=== PATIENT | female | born 1985 | race Caucasian/White ===

== ENCOUNTER 2023-11-19 20:32 | Inpatient (IN) | payer OTHER, SELFPAY ==
--- NOTE | ~2023-11-19 | CT_ITS ---
EXAMINATION: CT HEAD WITHOUT CONTRAST CLINICAL INFORMATION: Severe headache COMPARISON: None. TECHNIQUE: Multidetector volumetric imaging of the head was performed without intravenous contrast material. This CT examination was performed using dose optimization techniques as appropriate, variously including the following: *Automated exposure control *Adjustment of mA and/or kV according to patient size (this includes techniques or standardized protocols for targeted exams where dose is matched to indication/reason for exam; i.e. extremities or head) *Use of iterative reconstruction technique Dose: 612 mGy-cm FINDINGS: There is no evidence of acute intracranial hemorrhage or territorial infarction. No abnormal mass-effect or midline shift is seen. Baker to white matter differentiation is well preserved. No extra axial fluid collections. The ventricles are normal in size and configuration. A few foci of hypoattenuation in the subcortical and periventricular white matter are most consistent with chronic microangiopathic changes. May small metal piercing is present in the soft tissues over the left lateral orbital rim. Soft tissues otherwise unremarkable. No calvarial fracture. The sinuses and mastoid air cells are clear. CT/CT head/brain wo IV con IMPRESSION: No acute intracranial pathology.
--- NOTE | ~2023-11-19 | XR_ITS ---
EXAMINATION: PORTABLE CHEST 1 VIEW CLINICAL INFORMATION: fever. COMPARISON: No recent pertinent prior studies are available for comparison. TECHNIQUE: Portable frontal view of the chest was obtained. FINDINGS: The lungs are mildly hypoexpanded with minimal increased basilar markings on the right more likely due to atelectasis. No focal infiltrate, effusion, edema, or pneumothorax. Cardiac and mediastinal silhouettes are within normal limits for technique. No acute bony abnormality seen. Spinal hardware partially visualized. XR/XR chest 1V IMPRESSION: Minimal increased right basilar markings more likely due to atelectasis.
--- NOTE | ~2023-11-19 | US_ITS ---
EXAMINATION: US ABDOMEN LIMITED CLINICAL INFORMATION: Fevers, abnormal LFTs. COMPARISON: None available. TECHNIQUE: Real-time imaging of the right upper quadrant abdominal viscera. FINDINGS: PANCREAS: Pancreatic tail is obscured by bowel gas. Pancreas is otherwise unremarkable. LIVER: Enlarged, measuring 21.4 cm craniocaudal. Increased hepatic echogenicity is noted diffusely with decreased sonographic through transmission, most consistent with steatosis. No focal hepatic lesions. Focal fatty sparing is seen to the gallbladder. GALLBLADDER: Sludge is present in the gallbladder. Gallbladder wall is normal in thickness. No pericholecystic fluid. No sonographic Castillo's sign. No cholelithiasis identified. COMMON BILE DUCT: Normal in caliber measuring 0.3 cm in diameter. RIGHT KIDNEY: Normal. No hydronephrosis. No renal calculi or focal parenchymal lesions. The kidney measures 12.7 cm in maximum dimension. FREE FLUID: None. US/US abdomen limited IMPRESSION: 1. Hepatomegaly and hepatic steatosis. 2. Sludge in the gallbladder. No evidence of acute cholecystitis.
--- NOTE | ~2023-11-19 | XR_ITS ---
EXAMINATION: PORTABLE CHEST 1 VIEW CLINICAL INFORMATION: PICC line placement. COMPARISON: 11/19/2023. TECHNIQUE: Portable frontal view of the chest was obtained. FINDINGS: The lungs are hypoexpanded. Mild peribronchial cuffing seen bilaterally. Right arm PICC line in place with the tip overlying the expected cavoatrial junction.. No focal infiltrate, effusion, edema, or pneumothorax. Cardiac and mediastinal silhouettes are within normal limits for technique. No acute bony abnormality seen. XR/XR chest 1V IMPRESSION: Right arm PICC line tip overlying the expected cavoatrial junction. Hypoexpanded lungs with mild peribronchial cuffing seen bilaterally.
--- NOTE | ~2023-11-19 | CT_ITS ---
EXAMINATION: CT LUMBAR SPINE CLINICAL INFORMATION: Fever, IVDA COMPARISON: None available. TECHNIQUE: 85 mL Omnipaque 350 intravenous contrast was utilized. Multidetector helical imaging was performed through the abdomen and pelvis. Coronal and sagittal reformatted images were created. This CT examination was performed using dose optimization techniques as appropriate, variously including the following: *Automated exposure control *Adjustment of mA and/or kV according to patient size (this includes techniques or standardized protocols for targeted exams where dose is matched to indication/reason for exam; i.e. extremities or head) *Use of iterative reconstruction technique DLP: 789 mGy-cm FINDINGS: Partial visualization of thoracolumbar spinal fusion hardware including right T12 and bilateral L1 pedicle screws and interconnecting rods. There are chronic appearing fractures of the left L3 and L4 transverse processes. There is anatomic alignment of the lumbar vertebral bodies and posterior elements. Vertebral body heights and intervertebral disc spaces are maintained. Mild bilateral facet arthropathy. No acute fracture is seen. No osseous erosions identified. Included bilateral sacroiliac joints appear intact. No appreciable paraspinal soft tissue abnormality or abscess. CT/CT lumbar spine w IV con IMPRESSION: No acute findings identified in the lumbar spine. Given patient's symptoms, assessment for osteomyelitis or abscess would be better performed with pre and postcontrast MRI.
--- NOTE | ~2023-11-19 | MR_ITS ---
EXAMINATION: MR LUMBAR SPINE WITHOUT AND WITH CONTRAST CLINICAL INFORMATION: Fever and IVDA. COMPARISON: CT dated 11/20/2023. TECHNIQUE: Multiplanar, multisequence imaging was obtained. Intravenous contrast: Gadavist 10 mL. FINDINGS: VERTEBRAL BODIES AND PARASPINAL STRUCTURES: Posterior spinal fusion hardware is partially visualized at the lower thoracic to L1 levels. The marrow signal is homogeneous. No suspicious abnormal enhancement identified. No marrow or soft tissue edema visible. There are no compression fractures or subluxations. Reduced intradiscal signal evident at the L5-S1 level without a loss of disc height. No paraspinal soft tissue fluid collections are seen. The imaged bony pelvis is unremarkable. CONUS MEDULLARIS AND CAUDA EQUINE: The distal cord, conus tip, and cauda equina nerve roots are normal. No pathologic intradural enhancement is identified. No epidural collection visible. SPINAL LEVELS: L1-L2, L2-L3, L3-L4, and L4-L5: Well-hydrated discs without central canal stenosis or foraminal narrowing. Mild to moderate facet arthropathy visible at the L4-L5 level. L5-S1: Mild disc degeneration and very mild disc bulge with mild to moderate facet arthropathy. No central canal stenosis or foraminal narrowing. MR/MR lumbar spine wo/w con IMPRESSION: Mild spondylosis at the L5-S1 level. Hypertrophic facet arthropathy at the L4-L5 level. No central canal stenosis or foraminal narrowing. Partially visualized posterior fusion hardware at the lower thoracic levels extending to the L1 level. No imaging findings suspicious for discitis/osteomyelitis.
[2023-11-19 20:43] VITALS: BP 129/87; PULSE 122
[2023-11-19 20:46] VITALS: BP 125/68; PULSE 122; RESP 20; TEMP 39.1; O2SAT 99; BMI 37.7
--- NOTE | 2023-11-19 21:02 | ECG_ITS ---
Test Reason : TACHY Blood Pressure : / mmHG Vent. Rate : 117 BPM Atrial Rate : 117 BPM P-R Int : 122 ms QRS Dur : 082 ms QT Int : 380 ms P-R-T Axes : 040 032 000 degrees QTc Int : 530 ms Sinus tachycardia Possible Left atrial enlargement Prolonged QT Abnormal ECG No previous ECGs available Referred By: Kathryn Coto Electronically Signed By:Laureano Finch
--- NOTE | 2023-11-19 21:30 | ED_ITS ---
HPI - Nausea/Vomiting/Diarrhea General Chief complaint: Nausea/Vomiting/Diarrhea Stated complaint: vomiting and flu like symptoms, 1/2 methadone dose Time Seen by Provider: 11/19/23 20:42 Source: patient and old records reviewed Mode of arrival: ambulatory Limitations: no limitations History of Present Illness HPI Narrative: 38 yo female with PMH of opiate use disorder on high dose methadone last dose half today states they only gave her a little so she would go to the ED her whole family has recently been ill with flu or COVID in pst 3 weeks. She notes for the past week she has had headaches, n/v, poor PO intake, weakness, runny nose, cough, body aches. She did relapse and take IV fentanyl this week for back pain but states her symptoms were present prior to this. MD elicited complaint: nausea and vomiting Onset (ago): week(s) (1) Description of vomiting: watery Associated nausea: Yes Associated abdominal pain: No Pain consistency: constant Severity: moderate Quality: aching Exacerbating factors: eating and movement Relieving factors: none Context: sick contacts Associated symptoms: myalgias, cough, fever/chills, headaches, loss of appetite, malaise, nausea/vomiting, weakness and anxiety Related Data Allergies Allergy/AdvReac Type Severity Reaction Status Date / Time No Known Allergies Allergy Verified 11/19/23 20:55 Review of Systems 2 Review of Systems: Constitutional : pos Fever, pos Chills, pos Fatigue ENT/Mouth : No sore throat, pos Rhinorrhea Eyes: No Eye Pain, No Swelling, No Redness Cardiovascular : No Chest Pain, No SOB, No Dyspnea on Exertion Respiratory : pos Cough, No Sputum Gastrointestinal : pos Nausea, pos Vomiting, pos Diarrhea, No abdominal Pain Genitourinary : No Dysuria, No Urinary Frequency, No Hematuria, Musculoskeletal : No joint pain, pos Myalgias, No Joint Swelling Skin : No Skin Lesions, No rash Neuro : No Weakness, No Numbness, No Dizziness, positive Headache Psych : No Anxiety/Panic, No Depression All other systems reviewed and are negative Gastrointestinal: Gastrointestinal: Reports nausea PMFSH Past Medical History Attestation statement: The following information was validated with the patient. Source: old records reviewed Medical History (Updated 11/20/23 @ 00:18 by Kathryn Coto DO) Chronic back pain Opiate abuse, continuous Social History Social History Alcohol intake: never Smoked in Last 30 Days: No Use of substances other than those prescribed or required for medical reasons: Yes Advance Directives: No Advance Directives Information Provided: No Patient : No Physical Exam 2 Vital Signs: Vital Signs: Last Vital Signs Temp 98.8 F 11/19/23 23:55 Pulse 90 11/19/23 23:55 Resp 20 11/20/23 01:24 BP 104/54 L 11/19/23 23:55 Pulse Ox 98 11/19/23 23:55 O2 Del Method Room Air 11/19/23 23:55 BMI result Body Mass Index 37.7 Appearance: Alert. Oriented X3. mild acute distress. Eyes: Pupils equal, round and reactive to light. ENT: Pharynx dry MM normal posterior pharynx able to open jaw has no teeth no mass seen no infection no erythema Neck: Normal inspection. Neck supple. no meningeal signs CVS: Normal heart rate and rhythm. Pulses normal. Respiratory: No respiratory distress. Breath sounds normal. Abdomen: Soft and nontender. Back: c/o lumbar spine ttp no step offs Skin: Skin warm and dry. Normal skin color. Normal skin turgor. track young on both arms noted Extremities: No lower extremity edema. No calf ttp Neuro: Oriented X 3. No motor deficit. No sensory deficit. Course Course Course Narrative: delay in labs due to patient being difficult stick PATIENT IS OBESE IBW IS 64KG 30CC/KG BOLUS = 2000 NS mL Reevaluation(s) Reevaluation #1: ESR is elevated at this time I am going to order lumbar spine for the AM she tells me her pain is low to mid back points from sacral area to just below the rib cage - vancomycin ordered, MRI ordered signed out to Dr. Hammond pending further management. Medications Administered Generic Name Dose Route Start Last Admin Trade Name Freq PRN Reason Stop Dose Admin Hydromorphone HCl 1 mg 11/20/23 01:16 11/20/23 01:24 Hydromorphone Hcl 0.5 Mg/0.5 Ml Syringe IVPUSH 1 mg Q4H PRN Administration Pain, Moderate(Pain Scale 4-6) Protocol Vancomycin HCl 2,000 mg in 500 mls @ 250 mls/hr 11/20/23 00:44 11/20/23 01:25 Vancomycin/Ns IV 11/20/23 02:43 250 mls/hr ONCE ONE Administration Sodium Chloride 1,000 mls @ 100 mls/hr 11/20/23 01:00 11/20/23 01:11 Ns IVCONT 100 mls/hr .Q10H ANTONINA Administration Discontinued Medications Generic Name Dose Route Start Last Admin Trade Name Mirta PRN Reason Stop Dose Admin Acetaminophen 650 mg 11/19/23 21:02 11/19/23 21:55 Acetaminophen 325 Mg Tablet PO 11/19/23 21:03 650 mg ONCE ONE Administration Hydromorphone HCl 0.5 mg 11/19/23 21:02 11/19/23 22:08 Hydromorphone Hcl 0.5 Mg/0.5 Ml Syringe IVPUSH 11/19/23 21:03 0.5 mg ONCE ONE Administration Protocol Ceftriaxone Sodium 2 gm/ 50 mls @ 100 mls/hr 11/19/23 21:02 11/19/23 22:40 Sodium Chloride IV 11/19/23 21:31 Infused ONCE ONE Infusion Sodium Chloride 1,000 mls @ 999 mls/hr 11/19/23 21:02 11/19/23 23:30 Ns IV 11/19/23 22:02 Infused .Q1H1M ONE Infusion Sodium Chloride 1,000 mls @ 999 mls/hr 11/19/23 21:04 11/19/23 23:16 Ns IV 11/19/23 22:04 Infused .Q1H1M ONE Infusion Magnesium Sulfate 2 gm in 50 mls @ 25 mls/hr 11/19/23 21:47 11/20/23 01:25 Magnesium Sulfate/H2o IV 11/19/23 23:46 Infused ONCE ONE Infusion Potassium Chloride 40 meq 11/19/23 22:34 11/19/23 23:32 Potassium Chloride Packet 20 Meq Packet PO 11/19/23 22:35 40 meq ONCE ONE Administration Medical Decision Making Medical Decision Making MDM Narrative: 38 yo female with PMH Of opiate use disorder on high dose methadone recently used IV fentanyl here with c/o viral like illness that was present prior to her relapse so hopefully endocarditis less likely at this time will need basic labs, CT head given headache for mass/sinusitis, cultures, IVF, pain medications, viral panel, CXR, UA, empiric ceftriaxone. Likely admit given her substance abuse history unless we find reason for her to be ill at this time. She reports sick prior to injection which would make endocarditis, epidural abscess less likely if she is being truthful but her track young are very suspicious and I might need to do MRI if I find nothing else. Differential Diagnosis Differential Diagnoses: The differential diagnosis associated with the presentation includes viral syndrome, UTI, pneumonia Admission/Observation Consideration of admission/observation: Escalation of care including admission/observation considered plan to admit - Dr. Rodarte will follow up on CT scan of lumbar spine Dr. Hammond will monitor as well Consult Healthcare Provider Management of the patient was discussed with: Hospitalist (will admit) Lab Data [facility] Lab Attestation statement: I reviewed the patient's lab results. 11/19/23 21:47 11/19/23 21:47 Labs: Lab Results 11/19/23 11/19/23 11/19/23 Range/Units 21:30 21:47 23:47 WBC 5.2 (4.8-10.8) X10*3/uL RBC 3.71 L (4.20-5.50) X10*6/uL Hgb 11.1 L (12.0-16.0) g/dl Hct 33.0 L (37.0-47.0) % MCV 88.9 (80.0-98.0) fL MCH 29.9 (27.0-33.0) pg MCHC 33.6 (31.0-35.0) g/dl RDW 13.1 (11.0-16.0) % Plt Count 93 L (160-400) X10*3/uL MPV 12.5 H (9.4-12.3) fL Immature Gran % (Auto) 0.4 (0.0-0.4) % Neut % (Auto) 80.6 H (45-73) % Lymph % (Auto) 13.0 L (20-40) % [place] % (Auto) 5.6 (2-11) % Eos % (Auto) 0.2 (0-4) % Baso % (Auto) 0.2 (0-2) % Lymph # (Auto) 0.7 L (1.2-4.9) X10*3/uL [place] # (Auto) 0.3 (0.1-1.2) X10*3/uL Eos # (Auto) 0.0 (0.0-0.4) X10*3/uL Baso # (Auto) 0.0 (0.0-0.2) X10*3/uL Abs Immat Gran (auto) 0.02 (0.00-0.03) X10*3/uL Absolute Neuts (auto) 4.2 (2.0-8.3) x10*3/uL Absolute Nucleated RBC 0.000 (0.0-0.012) X10*3/uL Nucleated RBC % (auto) 0.0 (0.0-0.2) /100WBC ESR 88 H (0-20) MM/HR Sodium 133 L (135-145) mmol/L Potassium 3.0 L (3.3-5.1) mmol/L Chloride 95 L (96-108) mmol/L Carbon Dioxide 23 (22-29) mmol/L Anion Gap 18 (12-20) BUN 14 (9-16) mg/dL Creatinine 0.83 (0.5-1.4) mg/dL Estim Creat Clear Calc 122.1 Estimated GFR > 60 Random Glucose 69 (60-115) mg/dL Lactic Acid 1.5 (0.5-2.0) mmol/L Calcium 8.9 (8.4-10.2) mg/dL Magnesium 2.0 (1.6-2.6) mg/dL Total Bilirubin 2.3 H (0.0-1.0) mg/dL Direct Bilirubin 1.7 H (0.0-0.5) mg/dL AST 105 H (5-31) U/L ALT 86 H (0-31) U/L Alkaline Phosphatase 105 (39-117) U/L Troponin I High Sens < 2.7 (<3.5-17.0) ng/L Total Protein 7.5 (6.5-8.0) g/dL Albumin 3.4 L (3.5-5.0) g/dL Lipase 27 (8-78) U/L Procalcitonin 3.28 ng/mL Beta HCG, Quant < 2 mIU/mL Urine Color Dark Yellow Urine Appearance Cloudy Urine pH 6.0 (5.0-9.0) Ur Specific [place] 1.020 (1.005-1.025) Urine Protein 30 (1+) H (Neg-Trace) mg/dL Urine Glucose (UA) Negative (Negative) mg/dL Urine Ketones 80 (Negative) mg/dL Urine Blood Trace H (Negative) Urine Nitrite Negative (Negative) Ur Leukocyte Esterase Small (1+) H (Negative) Urine RBC 3-5 H (0-2) /HPF Urine WBC 0-5 (0-5) /HPF Ur Squamous Epith Cells 11-20 (0-2) /HPF Urine Bacteria 2+ (None Seen) Hyaline Casts 0-2 (0-2) /LPF Urine Opiates Screen POSITIVE H (Not Detect) Ur Buprenorphine Scrn Not Detected (Not Detect) ng/mL Ur Oxycodone Screen Not Detected (Not Detect) ng/mL Urine Methadone Screen Positive H (Not Detect) ng/mL Urine Fentanyl Screen POSITIVE H (Not Detect) Ur Barbiturates Screen Not Detected (Not Detect) Ur Phencyclidine Scrn Not Detected (Not Detect) Ur Amphetamines Screen Not Detected (Not Detect) U Benzodiazepines Scrn Not Detected (Not Detect) Urine Cocaine Screen POSITIVE H (Not Detect) U Marijuana (THC) Screen Not Detected (Not Detect) Influenza Type A (PCR) NEGATIVE (Negative) Influenza Type B (PCR) NEGATIVE (Negative) RSV RNA Qual (PCR) NEGATIVE (Negative) SARS-CoV-2 RNA (RT-PCR) NEGATIVE (Negative) Independent Interpretation I performed an independent interpretation of an: EKG, Plain X-Ray (no pneumonia), Ultrasound (no cholecystitis) and CT Scan (no ICH) Interpretation: Rate: 117 Rhythm: sinus tach [place]: normal Normal P waves. Normal KRISSY. Normal QRS complex. ST T wave : nonspecific ant leads, no MASTER qTC: 530 prior studies: no acute ischemia The study has been interpreted contemporaneously by me. . Radiology Impression Discussion of test interpretation with radiology: I have reviewed the radiologist's reading. Independent Historian Clinical information obtained from an independent historian. History obtained from or confirmed by: EMS External Record Review External record reviewed: Inpatient record Critical Care Time Critical Care Time Critical Care Time: Yes Total Critical Care Time: 60 Attestation: repeat pain medications with improvement in pain, IVF x 2L, review of records, K repletion, admission I attest to this time spent taking care of the patient Discharge Plan Discharge Clinical Impression: Acute hypokalemia, Thrombocytopenia, Elevated liver enzymes Fever Qualifiers: Fever type: unspecified Qualified Code(s): R50.9 - Fever, unspecified Patient Disposition: Admitted As Inpatient Print Language: Cameroonian
--- NOTE | 2023-11-19 21:30 | PC.NURSE ---
Pt very difficult stick, multiple attempt made for IV access and blood draw not successful. Provider Dr. Giraldo at bedside with ultrasound, not successful at this time.
--- NOTE | 2023-11-19 21:45 | PC.NURSE ---
IV ABX and fluids delayed d/t no IV access. Provider Kyra West able to get IV access via ultrasound guided, Pt tolerated well. Lab work collected and sent to lab.
[2023-11-19] MEDS: Acetaminophen 325 MG TABLET 650 MG PO (21:55)
[2023-11-19 21:57] LABS: MANUAL DIFF FLAG NO
[2023-11-19] MEDS: cefTRIAXone sodium 2 GM in 0.9 % Sodium Chloride 50 ML IV (21:57)
[2023-11-19] MEDS: 0.9 % Sodium Chloride 1,000 ML 999 ML IV ×2 (21:57)
[2023-11-19 21:59] LABS: Basophils Percent Auto 0.2 % (0-2); Eosinophils Percent Auto 0.2 % (0-4); Hemoglobin 11.1 g/dl (12.0-16.0); Imm Gran Abs Auto 0.02 X10*3/uL (0.00-0.03); Imm Gran Pct Auto 0.4 % (0.0-0.4); Lymphocytes Absolute Auto 0.7 X10*3/uL (1.2-4.9); Mean Corpuscular HGB Conc 33.6 g/dl (31.0-35.0); Mean Corpuscular Hemoglobin 29.9 pg (27.0-33.0); Mean Corpuscular Volume 88.9 fL (80.0-98.0); Mean Platelet Volume 12.5 fL (9.4-12.3); Monocytes Absolute Auto 0.3 X10*3/uL (0.1-1.2); Monocytes Percent Auto 5.6 % (2-11); Neutrophils Absolute Auto 4.2 x10*3/uL (2.0-8.3); Neutrophils Percent Auto 80.6 % (45-73); Red Blood Count 3.71 X10*6/uL (4.20-5.50); Red Cell Distribution Width 13.1 % (11.0-16.0); White Blood Count 5.2 X10*3/uL (4.8-10.8)
[2023-11-19] MEDS: HYDROmorphone HCl 0.5 MG/0.5 ML SYRINGE IVPUSH (22:08)
[2023-11-19 22:10] LABS: Influenza A PCR NEGATIVE (Negative); Influenza B PCR NEGATIVE (Negative); Resp Syncy Virus RNA Qual PCR NEGATIVE (Negative); SARS COV2 PCR INHOUSE NEGATIVE (Negative)
[2023-11-19 22:12] LABS: Platelet Count 93 X10*3/uL (160-400)
[2023-11-19 22:14] LABS: Lactic Acid 1.5 mmol/L (0.5-2.0)
[2023-11-19 22:15] VITALS: BP 119/74; PULSE 115; RESP 22; TEMP 39; O2SAT 98
[2023-11-19 22:24] LABS: Troponin-I High Sensitivity < 2.7 ng/L (<3.5-17.0)
[2023-11-19 22:26] LABS: Alanine Aminotransferase 86 U/L (0-31); Albumin Level 3.4 g/dL (3.5-5.0); Alkaline Phosphatase 105 U/L (39-117); Anion Gap 18 (12-20); Aspartate Amino Transferase 105 U/L (5-31); Bilirubin Direct 1.7 mg/dL (0.0-0.5); Bilirubin Total 2.3 mg/dL (0.0-1.0); Blood Urea Nitrogen 14 mg/dL (9-16); Calcium 8.9 mg/dL (8.4-10.2); Carbon Dioxide 23 mmol/L (22-29); Chloride 95 mmol/L (96-108); Creatinine Clr Calc Pharmacy 122.1; Estimated Glomerular Filt Rate > 60; Glucose Random 69 mg/dL (60-115); Lipase 27 U/L (8-78); Sodium 133 mmol/L (135-145); Total Protein 7.5 g/dL (6.5-8.0)
[2023-11-19 22:41] LABS: HCG Quantitative < 2 mIU/mL; Procalcitonin 3.28 ng/mL
[2023-11-19] MEDS: Magnesium Sulfate/H2O 2 GM/50 ML PIGGYBACK IV (23:18)
[2023-11-19] MEDS: Potassium Chloride Packet 20 MEQ PACKET 40 MEQ PO (23:32)
[2023-11-19 23:35] VITALS: BP 109/60; PULSE 93; RESP 20; TEMP 38.3; O2SAT 97
[2023-11-19 23:55] VITALS: BP 104/54; PULSE 90; RESP 19; TEMP 37.1; O2SAT 98
[2023-11-19 23:55] LABS: Appearance Urine Cloudy; Color Urine Dark Yellow; Glucose Urine UA Negative (Negative); Leukocyte Esterase Urine Small (1+) (Negative); Nitrite Urine Negative (Negative); UMIC TRIGGER UACC YES; Urine Blood Trace (Negative); Urine Ketones 80 mg/dL (Negative); Urine Protein 30 (1+) mg/dL (Neg-Trace)
[2023-11-20] VITALS (8 sets, daily range): BP systolic 101–115; BP diastolic 57–71; PULSE 83–115; RESP 16–20; TEMP 36.6–39.2; O2SAT 95–98
--- NOTE | 2023-11-20 | ECG_ITS ---
Test Reason : QTC CHECK Blood Pressure : / mmHG Vent. Rate : 070 BPM Atrial Rate : 070 BPM P-R Int : 148 ms QRS Dur : 086 ms QT Int : 448 ms P-R-T Axes : 039 035 018 degrees QTc Int : 483 ms Normal sinus rhythm Prolonged QT Abnormal ECG When compared with ECG of 19-NOV-2023 21:30, Vent. rate has decreased BY 47 BPM Referred By: Betty Padgett Electronically Signed By:Laureano Finch
[2023-11-20 00:11] LABS: Amphetamine Screen Urine Not Detected (Not Detect); Barbiturates, Urine Not Detected (Not Detect); Benzodiazepines Screen Urine Not Detected (Not Detect); Buprenorphine Scr Not Detected (Not Detect); Cannabinoid Screen Urine Not Detected (Not Detect); Cocaine Screen Urine POSITIVE (Not Detect); Fentanyl, urine POSITIVE (Not Detect); Methadone Screen, Urine Positive (Not Detect); Opiate Screen Urine POSITIVE (Not Detect); Oxycodone Screen Urine Not Detected (Not Detect); Phencyclidine Screen Urine Not Detected (Not Detect)
[2023-11-20 00:12] LABS: Bacteria Urine 2+ (None Seen); Hyaline Casts Urine 0-2 /LPF (0-2); UACC Culture Trigger YES; WBC Urine 0-5 /HPF (0-5)
[2023-11-20 00:38] LABS: Erythrocyte Sedimentation Rate 88 MM/HR (0-20)
[2023-11-20] MEDS: 0.9 % Sodium Chloride 1,000 ML 100 ML IVCONT ×2 (01:11→11:23)
[2023-11-20] MEDS: HYDROmorphone HCl 0.5 MG/0.5 ML SYRINGE 1 MG IVPUSH ×4 (01:24→21:35)
[2023-11-20] MEDS: vancomycin/NS 2,000 MG/500 ML PLAST..BAG 250 MG IV (01:25)
--- NOTE | 2023-11-20 01:33 | P.HPHOSP_ITS ---
History of Present Illness Date of Service: 11/20/23 Chief Complaint: Fever This is a 38-year-old female with pertinent history of IV drug use disorder who presents to the emergency department for evaluation of fever, chills. Patient states her symptoms started 5 days prior to presentation. Patient has been having multiple complaints including fever, chills, headache, nausea, nonbloody emesis, poor p.o. intake, weakness. States she feels sick. Also has been having runny nose and cough. Admits to using IV drugs but denies infections in the past. Is not on any prescription medications. States her family is sick with viral infections. Patient is also complaining of lower back pain that started 5 days ago, is constant and is without any relieving factors. No neck rigidity. No chest pain, palpitations, shortness of breath, changes in urinary or bowel habits. In the emergency department, CT head, CT lumbar spine, abdominal ultrasound and chest x-ray without any acute abnormalities. Patient was found to be febrile and tachycardic Review of Systems 2 Constitutional: Constitutional: Reports body ache(s), Reports chills, Reports fatigue, Reports fever(s), Reports headache(s), Reports malaise, Reports poor appetite and Reports weakness ENT: Reports headache(s) Cardiovascular: Cardiovascular: Reports no additional cardiovascular complaints Respiratory: Respiratory: Reports no additional respiratory complaints Gastrointestinal: Gastrointestinal: Reports no additional gastrointestinal complaints Genitourinary: Genitourinary: Reports no additional female genitourinary complaints Neurologic: Reports headache(s) and Reports weakness Endocrine: Endocrine: Reports fatigue [facility] Medical History Chronic back pain Opiate abuse, continuous Pertinent family history: No family history of early CAD Social History Alcohol intake: never Patient Tobacco Use Status: Former Tobacco user Smoked in Last 30 Days: No Use of substances other than those prescribed or required for medical reasons: Yes Advance Directives: No Advance Directives Information Provided: No Nutrition Risks: No Nutritional Risk Patient : No Meds Allergies Allergy/AdvReac Type Severity Reaction Status Date / Time No Known Allergies Allergy Verified 11/19/23 20:55 Active Medications: Current Medications Acetaminophen (Acetaminophen 325 Mg Tablet) 650 mg PO Q6H PRN PRN Reason: Fever >100.4 Hydromorphone HCl (Hydromorphone Hcl 0.5 Mg/0.5 Ml Syringe) 1 mg IVPUSH Q4H PRN; Protocol PRN Reason: Pain, Moderate(Pain Scale 4-6) Last Admin: 11/20/23 01:24 Dose: 1 mg Vancomycin HCl (Vancomycin/Ns) 2,000 mg in 500 mls @ 250 mls/hr IV ONCE ONE Stop: 11/20/23 02:43 Last Admin: 11/20/23 01:25 Dose: 250 mls/hr Sodium Chloride (Ns) 1,000 mls @ 100 mls/hr IVCONT .Q10H [facility] Last Admin: 11/20/23 01:11 Dose: 100 mls/hr Pharmacy Consult (Consult Rx Vancomycin Dosing) 1 each MISCELLANE DAILY PRN PRN Reason: Consult order Physical Exam 2 Vital Signs and Narrative: Vital Signs: Last Vital Signs Temp 98.8 F 11/20/23 01:30 Pulse 94 11/20/23 01:30 Resp 19 11/20/23 01:30 BP 104/62 11/20/23 01:30 Pulse Ox 97 11/20/23 01:30 O2 Del Method Room Air 11/20/23 01:30 BMI result Body Mass Index 37.7 Middle-aged female lying in bed in no distress Neck supple, no JVD Regular rate and rhythm, S1-S2 heard Regular breath sounds bilaterally, no wheezing or crackles appreciated Abdomen soft nontender, no guarding, no rigidity Patient is awake, alert and oriented to self, place, time and person ; no focal motor deficit Psych: Normal mood Bilateral track young present in upper extremity Results Labs 11/19/23 21:47 11/19/23 21:47 Labs: Laboratory Results - last 24 hr 11/19/23 11/19/23 11/19/23 21:30 21:47 23:47 MCV 88.9 MCH 29.9 MCHC 33.6 RDW 13.1 Plt Count 93 L MPV 12.5 H Immature Gran % (Auto) 0.4 Neut % (Auto) 80.6 H Lymph % (Auto) 13.0 L [place] % (Auto) 5.6 Eos % (Auto) 0.2 Baso % (Auto) 0.2 Lymph # (Auto) 0.7 L [place] # (Auto) 0.3 Eos # (Auto) 0.0 Baso # (Auto) 0.0 Abs Immat Gran (auto) 0.02 Absolute Neuts (auto) 4.2 Absolute Nucleated RBC 0.000 Nucleated RBC % (auto) 0.0 ESR 88 H Anion Gap 18 Estim Creat Clear Calc 122.1 Estimated GFR > 60 Random Glucose 69 Lactic Acid 1.5 Calcium 8.9 Magnesium 2.0 Total Bilirubin 2.3 H Direct Bilirubin 1.7 H AST 105 H ALT 86 H Alkaline Phosphatase 105 Troponin I High Sens < 2.7 Total Protein 7.5 Albumin 3.4 L Lipase 27 Procalcitonin 3.28 Beta HCG, Quant < 2 Urine Color Dark Yellow Urine Appearance Cloudy Urine pH 6.0 Ur Specific [place] 1.020 Urine Protein 30 (1+) H Urine Glucose (UA) Negative Urine Ketones 80 Urine Blood Trace H Urine Nitrite Negative Ur Leukocyte Esterase Small (1+) H Urine RBC 3-5 H Urine WBC 0-5 Ur Squamous Epith Cells 11-20 Urine Bacteria 2+ Hyaline Casts 0-2 Urine Opiates Screen POSITIVE H Ur Buprenorphine Scrn Not Detected Ur Oxycodone Screen Not Detected Urine Methadone Screen Positive H Urine Fentanyl Screen POSITIVE H Ur Barbiturates Screen Not Detected Ur Phencyclidine Scrn Not Detected Ur Amphetamines Screen Not Detected U Benzodiazepines Scrn Not Detected Urine Cocaine Screen POSITIVE H U Marijuana (THC) Screen Not Detected Influenza Type A (PCR) NEGATIVE Influenza Type B (PCR) NEGATIVE RSV RNA Qual (PCR) NEGATIVE SARS-CoV-2 RNA (RT-PCR) NEGATIVE Imaging Radiologist's Impressions: Impressions Chest X-Ray 11/19/23 22:05 IMPRESSION: Minimal increased right basilar markings more likely due to atelectasis. Abdomen Ultrasound 11/19/23 23:00 IMPRESSION: 1. Hepatomegaly and hepatic steatosis. 2. Sludge in the gallbladder. No evidence of acute cholecystitis. Head CT 11/19/23 23:10 IMPRESSION: No acute intracranial pathology. Assessment and Plan (1) Fever: Qualifiers: Fever type: unspecified Qualified Code(s): R50.9 - Fever, unspecified Status: Acute Plan This is a 38-year-old female with pertinent history of IV drug use disorder who presents to the emergency department for evaluation of fever, chills. #. Sirs: Will admit with empiric IV antibiotics. Concern for bacteremia in a patient with IV drug use disorder. Resuscitated with IV crystalloids. Lactic acid and blood culture obtained. MRI lumbar spine ordered by ER physician pending #. Polysubstance IV use disorder: Consulted Addiction Team, monitor for withdrawal. #. Thrombocytopenia likely in the setting of infection: Defer prophylactic Lovenox #. Elevated transaminases due to SIRS #. Hypokalemia: Repleted DVT prophylaxis: Mechanical Full code Admit as inpatient and will require two night minimum hospital stay for IV antibiotics (as above), which is not possible in a lesser acute setting. Quality Stroke Does the patient have a stroke diagnosis?: No VTE Prior VTE?: No VTE Risk Level:: Medical - moderate - high VTE Device Contraindication: N/A - Device Ordered VTE Drug Contraindication: Treatment Not Indicated
[2023-11-20] MEDS: iohexoL 350 MG/ML 100 ML INFUS..BTL 85 ML IV (01:51)
--- NOTE | 2023-11-20 02:42 | PC.NURSE ---
Addendum entered by Melva Camp 11/20/23 02:48: Pt reports recently relapsing on IVDU. Original Note: Late entry: Pt VITALIY from home, A&Ox3, reports 10/10 headache, subjective fevers, nausea/vomiting, decrease PO intake, and weakness x 4 days. Reports exposure to covid/flu 3 weeks ago. Pt states at baseline she able to pivot to w/c which she has not been able to do in about 1 week.
[2023-11-20] MEDS: Acetaminophen 325 MG TABLET 650 MG PO ×2 (04:30→21:35)
[2023-11-20] MEDS: ondansetron HCL 4 MG/2 ML VIAL IVPUSH (04:30)
--- NOTE | 2023-11-20 05:14 | PC.NURSE ---
Pt febrile, reports nausea and increase all over body pain. Pt medicated per SEP. Dr. Rodarte made aware, new order pending.
[2023-11-20] MEDS: Morphine Sulfate 2 MG/ML CARTRIDGE 4 MG IVPUSH (05:18)
[2023-11-20 05:28] LABS: MANUAL DIFF FLAG NO
[2023-11-20 05:31] LABS: Basophils Percent Auto 0.4 % (0-2); Eosinophils Percent Auto 0.2 % (0-4); Hematocrit 31.2 % (37.0-47.0); Hemoglobin 10.5 g/dl (12.0-16.0); Imm Gran Abs Auto 0.04 X10*3/uL (0.00-0.03); Imm Gran Pct Auto 0.8 % (0.0-0.4); Lymphocytes Absolute Auto 0.6 X10*3/uL (1.2-4.9); Lymphocytes Percent Auto 11.5 % (20-40); Mean Corpuscular HGB Conc 33.7 g/dl (31.0-35.0); Mean Corpuscular Hemoglobin 30.2 pg (27.0-33.0); Mean Corpuscular Volume 89.7 fL (80.0-98.0); Mean Platelet Volume 13.4 fL (9.4-12.3); Monocytes Absolute Auto 0.4 X10*3/uL (0.1-1.2); Monocytes Percent Auto 7.3 % (2-11); Neutrophils Absolute Auto 4.2 x10*3/uL (2.0-8.3); Neutrophils Percent Auto 79.8 % (45-73); Red Blood Count 3.48 X10*6/uL (4.20-5.50); Red Cell Distribution Width 13.3 % (11.0-16.0); White Blood Count 5.2 X10*3/uL (4.8-10.8)
[2023-11-20 05:32] LABS: Platelet Count 79 X10*3/uL (160-400)
[2023-11-20] MEDS: 0.9 % Sodium Chloride 250 ML 999 ML IV (05:32)
[2023-11-20 06:00] LABS: Anion Gap 15 (12-20); Blood Urea Nitrogen 9 mg/dL (9-16); Calcium 7.6 mg/dL (8.4-10.2); Carbon Dioxide 20 mmol/L (22-29); Chloride 103 mmol/L (96-108); Creatinine Clr Calc Pharmacy 140.7; Estimated Glomerular Filt Rate > 60; Glucose Random 81 mg/dL (60-115); Potassium 3.5 mmol/L (3.3-5.1); Sodium 134 mmol/L (135-145)
--- NOTE | 2023-11-20 07:47 | PHA.PROG ---
Admission Date/Time: November 20, 2023 01:43 Indication: SEPSIS Weight in k.5 kg Adjusted body weight in K KG [place] body weight in K.9 KG Obesity Dosing Indication % IBW: Serum Creatinine - Last 168 Hours 11/19/23 11/20/23 21:47 05:05 Creatinine 0.83 0.72 Estimated CrCl and GFR - Last 168 Hours 11/19/23 11/20/23 21:47 05:05 Estim Creat Clear Calc 122.1 140.7 Estimated GFR > 60 > 60 Vancomycin Loading Dose: 2000 MG Current Vancomycin Dosing Regimen: 1250 MG Q12H Vancomycin Monitoring using AUC goal of 400 - 600 range with trough as surrogate marker: PREDICTED AUC OF 460 Date and Time for next Vancomycin Level to be drawn: 11/21/23 @1100 Pharmacist Comments on Vancomycin Plan: PATIENT OBESE Vancomycin dosing will take advantage of [employer] as a clinical decision support tool that uses Bayesian modeling to calculate individual patient's pharmacokinetic parameters and forecast the patient's drug concentration time course with the target goal AUC 24 range of 400 - 600 mg/L/hr.
--- NOTE | 2023-11-20 08:42 | PHA.MEDREC ---
Pharmacy Consult ? Medication Reconciliation Pharmacy has completed the medication reconciliation. spoke with patient to confirm medications. She reports taking gabapentin but takes less than what is prescribed (she takes 1 capsule BID-TID instead of 2 capsules TID). She reports last taking it at the beginning of the week and that this is her last prescription for it. Patient reported a methadone dose of 226mg last given 1/2 dose yesterday at [facility] where she picks up from.
--- NOTE | 2023-11-20 09:16 | PC.NURSE ---
alert and oriented with even and unlabored respirations. medicated per the MAR w/ prn pain medications. [facility] previously was utilizing purewick however patient stated she was having trouble urinating with this. removed, and able to use the bed lewis voiding with no issues. phlebotomy at bedside for labs.
--- NOTE | 2023-11-20 10:12 | PC.NURSE ---
methadone dose verified, hector arreguin RN naveed stating patient's last methadone dose 11/19/23 at half her usual dose 113mg - patient usually receives 226mg of methadone however yesterday d/t patient's presentation to the clinic of not feeling well and weakness the provider gave half of her usual dose per RN. form completed and faxed to pharmacy.
--- NOTE | 2023-11-20 10:41 | HO.PM.IMPN ---
Subjective Subjective Date of Service: 11/20/23 Interval History: Seen in follow up for fevers, back pain Interval history: Still reporting chills, sweats. Febrile to 102.4 this morning. Reports LBP x1 year worse last few days. NO bowel/bladder dysfunction, weakness, saddle anesthesia. Reports 9/10 pain. Injects LUE, last use several days ago. Review of Systems Review of Systems: Yes all other systems are reviewed and are negative Physical Exam Vital Signs: Vital Signs: Last Vital Signs Temp 98 F 11/20/23 07:12 Pulse 83 11/20/23 07:12 Resp 16 11/20/23 07:12 BP 108/65 11/20/23 07:12 Pulse Ox 98 11/20/23 07:12 O2 Del Method Room Air 11/20/23 07:12 BMI result Body Mass Index 37.7 Constitutional - Awake and Alert, No apparent distress Eyes - PERRLA, EOMI Cardiovascular - S1S2, RRR, No edema Respiratory - Normal lung expansion, Normal respiratory effort, No respiratory distress, CTA bilaterally Extremities - no calf tenderness bilaterally, no swelling Skin - Warm/Dry. Track young with surrounding ecchymosis at various levels of healing Neurological - Alert & oriented x3, 5/5 strength BUE and BLE Psychological - Appropriate affect Objective Data Active Medications Acetaminophen (Acetaminophen 325 Mg Tablet) 650 mg PO Q6H PRN PRN Reason: Fever >100.4 Last Admin: 11/20/23 04:30 Dose: 650 mg Documented By: PAULO Acetaminophen (Acetaminophen 325 Mg Tablet) 650 mg PO Q6H PRN PRN Reason: Pain, Mild (Pain Scale 1-3) Gabapentin (Gabapentin 300 Mg Capsule) 300 mg PO BID [facility] Gabapentin (Gabapentin 300 Mg Capsule) 300 mg PO DAILY PRN PRN Reason: Pain, Mild (Pain Scale 1-3) Hydromorphone HCl (Hydromorphone Hcl 0.5 Mg/0.5 Ml Syringe) 1 mg IVPUSH Q4H PRN; Protocol PRN Reason: Pain, Moderate(Pain Scale 4-6) Last Admin: 11/20/23 08:45 Dose: 1 mg Documented By: RYLEE Sodium Chloride (Ns) 1,000 mls @ 100 mls/hr IVCONT .Q10H [facility] Last Admin: 11/20/23 01:11 Dose: 100 mls/hr Documented By: PALUO Vancomycin HCl 1,250 mg/ (Sodium Chloride) 250 mls @ 166.667 mls/hr IV Q12H [facility] Melatonin (Melatonin 3 Mg Tablet) 6 mg PO BEDTIME PRN PRN Reason: Insomnia Ondansetron HCl (Ondansetron Hcl 4 Mg/2 Ml Vial) 4 mg IVPUSH Q8H PRN PRN Reason: Nausea and Vomiting Last Admin: 11/20/23 04:30 Dose: 4 mg Documented By: PAULO Pharmacy Consult (Consult Rx Vancomycin Dosing) 1 each MISCELLANE DAILY PRN PRN Reason: Consult order Sodium Chloride (0.9 % Sodium Chloride Flush 3 Ml Syringe) 3 ml IVFLUSH QSHIFT [facility] Last Admin: 11/20/23 08:10 Dose: Not Given Documented By: RYLEE Non-Admin Reason: IV Running Labs 11/20/23 05:05 11/20/23 05:05 Labs: Laboratory Results - last 24 hr 11/19/23 11/19/23 11/19/23 21:30 21:47 23:47 MCV 88.9 MCH 29.9 MCHC 33.6 RDW 13.1 Plt Count 93 L MPV 12.5 H Immature Gran % (Auto) 0.4 Neut % (Auto) 80.6 H Lymph % (Auto) 13.0 L [place] % (Auto) 5.6 Eos % (Auto) 0.2 Baso % (Auto) 0.2 Lymph # (Auto) 0.7 L [place] # (Auto) 0.3 Eos # (Auto) 0.0 Baso # (Auto) 0.0 Abs Immat Gran (auto) 0.02 Absolute Neuts (auto) 4.2 Absolute Nucleated RBC 0.000 Nucleated RBC % (auto) 0.0 ESR 88 H Anion Gap 18 Estim Creat Clear Calc 122.1 Estimated GFR > 60 Random Glucose 69 Lactic Acid 1.5 Calcium 8.9 Magnesium 2.0 Total Bilirubin 2.3 H Direct Bilirubin 1.7 H AST 105 H ALT 86 H Alkaline Phosphatase 105 Troponin I High Sens < 2.7 Total Protein 7.5 Albumin 3.4 L Lipase 27 Procalcitonin 3.28 Beta HCG, Quant < 2 Urine Color Dark Yellow Urine Appearance Cloudy Urine pH 6.0 Ur Specific [place] 1.020 Urine Protein 30 (1+) H Urine Glucose (UA) Negative Urine Ketones 80 Urine Blood Trace H Urine Nitrite Negative Ur Leukocyte Esterase Small (1+) H Urine RBC 3-5 H Urine WBC 0-5 Ur Squamous Epith Cells 11-20 Urine Bacteria 2+ Hyaline Casts 0-2 Urine Opiates Screen POSITIVE H Ur Buprenorphine Scrn Not Detected Ur Oxycodone Screen Not Detected Urine Methadone Screen Positive H Urine Fentanyl Screen POSITIVE H Ur Barbiturates Screen Not Detected Ur Phencyclidine Scrn Not Detected Ur Amphetamines Screen Not Detected U Benzodiazepines Scrn Not Detected Urine Cocaine Screen POSITIVE H U Marijuana (THC) Screen Not Detected Influenza Type A (PCR) NEGATIVE Influenza Type B (PCR) NEGATIVE RSV RNA Qual (PCR) NEGATIVE SARS-CoV-2 RNA (RT-PCR) NEGATIVE 11/20/23 05:05 MCV 89.7 MCH 30.2 MCHC 33.7 RDW 13.3 Plt Count 79 L MPV 13.4 H Immature Gran % (Auto) 0.8 H Neut % (Auto) 79.8 H Lymph % (Auto) 11.5 L [place] % (Auto) 7.3 Eos % (Auto) 0.2 Baso % (Auto) 0.4 Lymph # (Auto) 0.6 L [place] # (Auto) 0.4 Eos # (Auto) 0.0 Baso # (Auto) 0.0 Abs Immat Gran (auto) 0.04 H Absolute Neuts (auto) 4.2 Absolute Nucleated RBC 0.000 Nucleated RBC % (auto) 0.0 ESR Anion Gap 15 Estim Creat Clear Calc 140.7 Estimated GFR > 60 Random Glucose 81 Lactic Acid Calcium 7.6 L D Magnesium Total Bilirubin Direct Bilirubin AST ALT Alkaline Phosphatase Troponin I High Sens Total Protein Albumin Lipase Procalcitonin Beta HCG, Quant Urine Color Urine Appearance Urine pH Ur Specific [place] Urine Protein Urine Glucose (UA) Urine Ketones Urine Blood Urine Nitrite Ur Leukocyte Esterase Urine RBC Urine WBC Ur Squamous Epith Cells Urine Bacteria Hyaline Casts Urine Opiates Screen Ur Buprenorphine Scrn Ur Oxycodone Screen Urine Methadone Screen Urine Fentanyl Screen Ur Barbiturates Screen Ur Phencyclidine Scrn Ur Amphetamines Screen U Benzodiazepines Scrn Urine Cocaine Screen U Marijuana (THC) Screen Influenza Type A (PCR) Influenza Type B (PCR) RSV RNA Qual (PCR) SARS-CoV-2 RNA (RT-PCR) Microbiology Microbiology Results: Microbiology 11/19/23 21:47 Blood Culture - Preliminary Blood - Venous Prelim: GPC Gram Stain only 11/19/23 21:47 Blood Culture - Preliminary Blood - Venous Prelim: GPC Gram Stain only Assessment and Plan (1) Severe sepsis: Status: Acute (2) Gram-positive bacteremia: Status: Acute (3) Low back pain: Status: Acute (4) Intravenous drug abuse: Status: Acute (5) Thrombocytopenia: Status: Acute (6) Acute hypokalemia: Status: Acute Plan 38-year-old female with pertinent history of IV drug use disorder, chronic low back pain, s/p thoracic fusion admitted for sirs with fever unkn[place] origin with suspected bacteremia and low back pain #Severe sepsis with gram positive bacteremia -Pt met severe sepsis criteria 11/18 at 2147 with fevers, tachycardia, thombocytopenia, and hyperbilirubinemia. Lactic acid at that time WNL. Blood cultures x2 now positive with GPC. Resuscited with IVF. on abx -Repeat blood cultures -ESR 88, CRPpending. PCT >3 -concern for epidural abscess/discitis given worsening LBP in IVDA. MRI lumbar spine w/wo pending. IV vanco (intiated 11/18) -ua also indicative of infection. 2g IV ctx (initiated 11/18) -cxr, ruq u/s negative for cholecystitis -No evidence of cellulitis/abscess around track young LUE -Echo -ID consult -Follow cbc/cultures. Trend pct #Asymptomatic bacteriuria -as above #Acute on chronic low back pain -concern for spinal epidural abscess/discitis given IVDA. MRI lumbar spine w/wo ordered -ct lumbar spine unremarkable -methadone, prn hydrocodone and oxycodone as above -lidocaine patches #Polysubstance IV use disorder -urine drug screen positive for cocaine, opiates, fentanyl, methadone -Resume methadone @ 113mg due to prolonged qtc. PRN hydrocodone and oxycodone available -addiction medicine consult #Acute thrombocytopenia -due to infection as above #Acute hypokalemia -repleted, resolved #normocytic anemia- suspect chronic -h/h above transfusion threshold #Acute hypocalcemia -likely dilutional from iv -dc ivf, follow lytes DVT prophylaxis: Mechanical Full code Pt requires ongoing inpt stay due to severe sepsis with gram positive bacteremia requiring iv abx, echo to evaluate for endocarditis and expert consulation Quality Stroke Does the patient have a stroke diagnosis?: No VTE Prior VTE?: No VTE Risk Level:: Medical - moderate - high VTE Device Contraindication: N/A - Device Ordered VTE Drug Contraindication: Treatment Not Indicated
[2023-11-20] MEDS: Gabapentin 300 MG CAPSULE PO ×2 (11:24→21:34)
[2023-11-20] MEDS: gadobutroL 10 ML VIAL IVPUSH (12:42)
--- NOTE | 2023-11-20 12:52 | HE.PHANOTE ---
RE METHADONE VERIFICATION PT NORMALLY GETS 226 MG METHADONE AT [facility]. ON 11/19/23 SHE WAS GIVEN HALF DOSE (113 MG) DUE TO FEELING UNWELL.
[2023-11-20 13:34] LABS: C Reactive Protein 17.07 mg/dL (< or = 0.50)
[2023-11-20] MEDS: methADONE HCl 20 MG/2 ML ORAL.CONC 113 MG PO (14:07)
[2023-11-20] MEDS: Lidocaine 4 % Patch ADH..PATCH 2 PATCH TRANSDERMA (14:10)
[2023-11-20] MEDS: vancomycin HCL 1,250 MG in 0.9 % Sodium Chloride 250 ML 166.67 MG IV (14:11)
--- NOTE | 2023-11-20 15:50 | W.PM.IDCN ---
History of Present Illness Data of Consult Service Date: 11/20/23 Requesting physician: Betty Padgett Primary Care Provider: Unknown Physician HPI Reason for consult: sepsis,gram positive cocci She presents with one weak nausea and vomiting as well as flulike symptoms. She has been taking less Methadone due to anorexia and vomiting. She injects into left antecubital Fentanyl due to back pain. She denies endocarditis or OM spine. There is spinal hardware but no OM seen. She denies HIV or Hepatitis C. Blood cultures 11/18 show 2/2 positive cocci. Review of Systems Review of Systems: Yes all other systems are reviewed and are negative [facility] Past Medical History Medical History Chronic back pain Opiate abuse, continuous Family History Family history: reviewed and not pertinent Social History Social History Alcohol intake: never Patient Tobacco Use Status: Former Tobacco user Smoked in Last 30 Days: No Use of substances other than those prescribed or required for medical reasons: Yes Advance Directives: No Advance Directives Information Provided: No Nutrition Risks: No Nutritional Risk Patient : No Meds Allergies Allergy/AdvReac Type Severity Reaction Status Date / Time No Known Allergies Allergy Verified 11/19/23 20:55 Active Medications: Current Medications Acetaminophen (Acetaminophen 325 Mg Tablet) 650 mg PO Q6H PRN PRN Reason: Fever >100.4 Last Admin: 11/20/23 04:30 Dose: 650 mg Acetaminophen (Acetaminophen 325 Mg Tablet) 650 mg PO Q6H PRN PRN Reason: Pain, Mild (Pain Scale 1-3) Gabapentin (Gabapentin 300 Mg Capsule) 300 mg PO BID [facility] Last Admin: 11/20/23 11:24 Dose: 300 mg Gabapentin (Gabapentin 300 Mg Capsule) 300 mg PO DAILY PRN PRN Reason: Pain, Mild (Pain Scale 1-3) Hydromorphone HCl (Hydromorphone Hcl 0.5 Mg/0.5 Ml Syringe) 1 mg IVPUSH Q4H PRN; Protocol PRN Reason: Pain, Severe (Pain Scale 7-10) Last Admin: 11/20/23 14:07 Dose: 1 mg Vancomycin HCl 1,250 mg/ (Sodium Chloride) 250 mls @ 166.667 mls/hr IV Q12H [facility] Last Admin: 11/20/23 14:11 Dose: 166.67 mls/hr Ceftriaxone Sodium 2 gm/ (Sodium Chloride) 50 mls @ 100 mls/hr IV Q24H [facility] Lidocaine (Lidocaine 4 % Patch Adh..Patch) 2 patch TRANSDERMA DAILY [facility]; Protocol Last Admin: 11/20/23 14:10 Dose: 2 patch Melatonin (Melatonin 3 Mg Tablet) 6 mg PO BEDTIME PRN PRN Reason: Insomnia Methadone HCl (Methadone Hcl 20 Mg/2 Ml Oral.Conc) 113 mg PO DAILY [facility] Last Admin: 11/20/23 14:07 Dose: 113 mg Ondansetron HCl (Ondansetron Hcl 4 Mg/2 Ml Vial) 4 mg IVPUSH Q8H PRN PRN Reason: Nausea and Vomiting Last Admin: 11/20/23 04:30 Dose: 4 mg Oxycodone HCl (Oxycodone Hcl Immed Release 5 Mg Tablet) 5 mg PO Q4H PRN PRN Reason: Pain, Moderate(Pain Scale 4-6) Pharmacy Consult (Consult Rx Vancomycin Dosing) 1 each MISCELLANE DAILY PRN PRN Reason: Consult order Sodium Chloride (0.9 % Sodium Chloride Flush 3 Ml Syringe) 3 ml IVFLUSH QSHIFT [facility] Last Admin: 11/20/23 08:10 Dose: Not Given Home Medications ?Medication ?Instructions ?Recorded ?Confirmed ?Last Taken ?Type gabapentin 300 mg capsule 300 mg PO BID-TID 11/20/23 11/20/23 Unknown History methadone 10 mg/5 mL oral solution 226 mg PO DAILY 11/20/23 11/20/23 11/19/23 History Physical Exam Vital Signs: Vital Signs: Last Vital Signs Temp 98.8 F 11/20/23 15:20 Pulse 86 11/20/23 15:20 Resp 18 11/20/23 15:20 BP 110/68 11/20/23 15:20 Pulse Ox 97 11/20/23 15:20 O2 Del Method Room Air 11/20/23 15:20 BMI result Body Mass Index 37.7 Const: General: cooperative HEENT: Head: Yes normal to inspection Face and sinus: Yes normal facial exam Mouth: Normal oral and palatal mucosa present Teeth and gingiva: dentition normal Eyes: General: appearance normal, both eyes and all related structures Pupils: Equal, round and reactive pupils present Resp: Effort & Inspection: normal respiratory effort Cardio: Rate: regular rate Rhythm: regular rhythm GI: Palpation (GI): Soft to palpation and nontender : General: Yes no CVA tenderness Back/Spine/Pelvis: Back: no CVA tenderness Skin: General skin exam: no rashes or lesions noted Neuro: General: moves all extremities Cranial nerves: Yes Equal, round and reactive pupils present Extrem: Other: mild erythema and swelling left antecubital Psych: Appearance: grossly normal Results Labs 11/20/23 05:05 11/20/23 05:05 Labs: Short CBC 11/19/23 11/20/23 Range/Units 21:47 05:05 WBC 5.2 5.2 (4.8-10.8) X10*3/uL Hgb 11.1 L 10.5 L (12.0-16.0) g/dl Hct 33.0 L 31.2 L (37.0-47.0) % Plt Count 93 L 79 L (160-400) X10*3/uL BMP 11/19/23 11/20/23 21:47 05:05 Sodium 133 L 134 L Potassium 3.0 L 3.5 Chloride 95 L 103 Carbon Dioxide 23 20 L BUN 14 9 Creatinine 0.83 0.72 Calcium 8.9 7.6 L D Liver Function 11/19/23 Range/Units 21:47 Total Bilirubin 2.3 H (0.0-1.0) mg/dL Direct Bilirubin 1.7 H (0.0-0.5) mg/dL AST 105 H (5-31) U/L ALT 86 H (0-31) U/L Alkaline Phosphatase 105 (39-117) U/L Albumin 3.4 L (3.5-5.0) g/dL Urine 11/19/23 Range/Units 23:47 Urine Color Dark Yellow Urine Appearance Cloudy Urine pH 6.0 (5.0-9.0) Ur Specific [place] 1.020 (1.005-1.025) Urine Protein 30 (1+) H (Neg-Trace) mg/dL Urine Glucose (UA) Negative (Negative) mg/dL Microbiology Microbiology Results: Microbiology 11/19/23 21:47 Blood - Venous Blood Culture - Preliminary Prelim: GPC Gram Stain only 11/19/23 21:47 Blood - Venous Blood Culture - Preliminary Prelim: GPC Gram Stain only Assessment and Plan (1) Intravenous drug abuse: Status: Acute (2) Gram-positive bacteremia: Status: Acute (3) Severe sepsis: Status: Acute Plan She has gram positive cocci,probably staph She has no signs OM spine. There is no murmur but concern remains over endocarditis. Check echo if not ordered, Would recheck blood culture. Stop Ceftriaxone as gram positive cocci in clusters so believe staph aureus. Check HIV and Hepatitis C. Addiction Medicine consult,also help with depression (relapse).
[2023-11-20] MEDS: 0.9 % Sodium Chloride Flush 3 ML SYRINGE IVFLUSH (16:50)
[2023-11-20] MEDS: HYDROmorphone HCl 0.5 MG/0.5 ML SYRINGE IVPUSH (16:51)
[2023-11-20] MEDS: oxyCODONE HCl Immed Release 5 MG TABLET PO (17:43)
--- NOTE | 2023-11-20 20:02 | PC.NURSE ---
This RN assumed pt care @ 1900. Pt resting in bed comfortably, no signs of distress. Plan of care ongoing.
--- NOTE | 2023-11-20 21:28 | MHC.EDTECH ---
Pt assisted on and off bed lewis, cleaned up, vital signs taken. Blankets taken off Pt and sheet given due to 102.6F temp. RN aware. Call hall within reach
--- NOTE | 2023-11-20 21:40 | PC.NURSE ---
Pt ca&ox4, no signs of distress. Pt reporting 8/10 pain. Pt medicated per mar. Plan of care ongoing.
--- NOTE | 2023-11-21 | ECG_ITS ---
Test Reason : qtc check Blood Pressure : / mmHG Vent. Rate : 088 BPM Atrial Rate : 088 BPM P-R Int : 134 ms QRS Dur : 082 ms QT Int : 406 ms P-R-T Axes : 033 022 010 degrees QTc Int : 491 ms Normal sinus rhythm Prolonged QT Abnormal ECG When compared with ECG of 20-NOV-2023 10:54, No significant change was found Referred By: Betty Padgett Electronically Signed By:JANNETH HERRERA MD
[2023-11-21 01:07] VITALS: BP 122/76; PULSE 88; RESP 18; TEMP 36.1; O2SAT 98
[2023-11-21] MEDS: vancomycin HCL 1,250 MG in 0.9 % Sodium Chloride 250 ML 166.67 MG IV (01:10)
[2023-11-21] MEDS: 0.9 % Sodium Chloride Flush 3 ML SYRINGE IVFLUSH ×2 (01:10→07:49)
[2023-11-21 01:20] VITALS: BMI 37.7
[2023-11-21 06:46] LABS: Red Cell Distribution Width 13.6 % (11.0-16.0)
[2023-11-21 06:48] LABS: Basophils Percent Auto 0.6 % (0-2); Eosinophils Absolute Auto 0.1 X10*3/uL (0.0-0.4); Eosinophils Percent Auto 1.5 % (0-4); Imm Gran Abs Auto 0.03 X10*3/uL (0.00-0.03); Imm Gran Pct Auto 0.6 % (0.0-0.4); Lymphocytes Percent Auto 17.8 % (20-40); Mean Corpuscular HGB Conc 33.3 g/dl (31.0-35.0); Mean Corpuscular Hemoglobin 29.9 pg (27.0-33.0); Mean Corpuscular Volume 89.8 fL (80.0-98.0); Mean Platelet Volume 13.3 fL (9.4-12.3); Monocytes Absolute Auto 0.4 X10*3/uL (0.1-1.2); Monocytes Percent Auto 7.6 % (2-11); Neutrophils Absolute Auto 3.9 x10*3/uL (2.0-8.3); Neutrophils Percent Auto 71.9 % (45-73); Platelet Count 94 X10*3/uL (160-400); Red Blood Count 4.01 X10*6/uL (4.20-5.50); White Blood Count 5.4 X10*3/uL (4.8-10.8)
[2023-11-21 07:01] VITALS: BP 111/55; PULSE 87; RESP 16; TEMP 36.1; O2SAT 93
[2023-11-21 07:03] LABS: Estimated Glomerular Filt Rate > 60
[2023-11-21 07:06] LABS: Anion Gap 14 (12-20); Blood Urea Nitrogen 6 mg/dL (9-16); Calcium 8.5 mg/dL (8.4-10.2); Carbon Dioxide 26 mmol/L (22-29); Chloride 100 mmol/L (96-108); Creatinine Clr Calc Pharmacy 144.8; Estimated Glomerular Filt Rate > 60; Glucose Random 88 mg/dL (60-115); Potassium 3.1 mmol/L (3.3-5.1); Sodium 137 mmol/L (135-145)
[2023-11-21] MEDS: Potassium Chloride Packet 20 MEQ PACKET 40 MEQ PO (07:50)
[2023-11-21] MEDS: Gabapentin 300 MG CAPSULE PO ×2 (07:52→22:04)
[2023-11-21] MEDS: methADONE HCl 20 MG/2 ML ORAL.CONC 113 MG PO (07:53)
[2023-11-21] MEDS: Lidocaine 4 % Patch ADH..PATCH 2 PATCH TRANSDERMA (07:54)
[2023-11-21 08:00] LABS: Magnesium 2.2 mg/dL (1.6-2.6)
--- NOTE | 2023-11-21 10:21 | MHC.CM.PN ---
EMR REVIEWED, PT W/VIDU/BACTEREMIA, CM MET W/PT WHO REPORTS SHE LIVES ALONE, IS FULLY INDEP, DENIES USE OF DME/SERVICES, PT DOES USE [facility] FOR [facility], PT AWARE SHE MAY NEED CORRECTION IV ABX [facility] AND PREFERS [facility], REFERRAL PLACED. PT VERIFIES PCP IS ZIA CURIEL, [employer] AND PT EDUCATED ON AND DECLINES TO COMPLETE A HCP AT THIS TIME, PT AWARE IF SHE CHANGES HER MIND TO ASK FOR CM.
[2023-11-21] MEDS: methADONE HCl 20 MG/2 ML ORAL.CONC 62 MG PO (11:27)
[2023-11-21 12:00] LABS: Vancomycin Trough 7.3 mcg/mL (10.0-20.0)
--- NOTE | 2023-11-21 12:08 | HE.PHANOTE ---
RE: vanco Trough of 11/20 came back at 7.3mg/L; increased dose to 1500mg Q8H with predicted trough of 15.5mg/L, AUC of 558mg/L. Next level to be drawn after 3 doses on 11/21 @1100. Be mindful of dose dumping due to patient's size
--- NOTE | 2023-11-21 12:11 | HO.PM.IMPN ---
Subjective Subjective Date of Service: 11/21/23 Interval History: Seen in follow up for fevers, back pain Staph aureus bacteremia Interval history: Denies chills, sweats. Febrile to 102.6 last night. Complaining of R heel pain with weight bearing. Also reporting diffuse body aches and dark urine. Review of Systems Review of Systems: Yes all other systems are reviewed and are negative Physical Exam Vital Signs: Vital Signs: Last Vital Signs Temp 97 F 11/21/23 07:01 Pulse 87 11/21/23 07:01 Resp 16 11/21/23 07:01 BP 111/55 L 11/21/23 07:01 Pulse Ox 93 11/21/23 07:01 O2 Del Method Room Air 11/21/23 07:01 BMI result Body Mass Index 37.7 Constitutional - Awake and Alert, No apparent distress Eyes - PERRLA, EOMI Cardiovascular - S1S2, RRR, No edema Respiratory - Normal lung expansion, Normal respiratory effort, No respiratory distress, CTA bilaterally Gastrointestinal - NT / ND; +BS; No rebound or guarding Extremities - no calf tenderness bilaterally, no swelling Musculoskeletal - Normal inspection. Focal tenderness over the insertion of the R achilles tendon into the calcaneus Skin - Warm/Dry Neurological - Alert & oriented x3, 5/5 strength BUE and BLE Psychological - Appropriate affect Objective Data Active Medications Acetaminophen (Acetaminophen 325 Mg Tablet) 650 mg PO Q6H PRN PRN Reason: Fever >100.4 Last Admin: 11/20/23 21:35 Dose: 650 mg Documented By: PASHA Acetaminophen (Acetaminophen 325 Mg Tablet) 650 mg PO Q6H PRN PRN Reason: Pain, Mild (Pain Scale 1-3) Gabapentin (Gabapentin 300 Mg Capsule) 300 mg PO BID ANTONINA Last Admin: 11/21/23 07:52 Dose: 300 mg Documented By: BASHIR Gabapentin (Gabapentin 300 Mg Capsule) 300 mg PO DAILY PRN PRN Reason: Pain, Mild (Pain Scale 1-3) Hydromorphone HCl (Hydromorphone Hcl 0.5 Mg/0.5 Ml Syringe) 1 mg IVPUSH Q4H PRN; Protocol PRN Reason: Pain, Severe (Pain Scale 7-10) Last Admin: 11/20/23 21:35 Dose: 1 mg Documented By: PASHA Vancomycin HCl 1,500 mg/ (Sodium Chloride) 500 mls @ 333.333 mls/hr IV Q8H [facility] Lidocaine (Lidocaine 4 % Patch Adh..Patch) 2 patch TRANSDERMA DAILY [facility]; Protocol Last Admin: 11/21/23 07:54 Dose: 2 patch Documented By: BASHIR Melatonin (Melatonin 3 Mg Tablet) 6 mg PO BEDTIME PRN PRN Reason: Insomnia Methadone HCl (Methadone Hcl 20 Mg/2 Ml Oral.Conc) 50 mg PO DAILY@1400 [facility] Methadone HCl (Methadone Hcl 20 Mg/2 Ml Oral.Conc) 175 mg PO DAILY [facility] Ondansetron HCl (Ondansetron Hcl 4 Mg/2 Ml Vial) 4 mg IVPUSH Q8H PRN PRN Reason: Nausea and Vomiting Last Admin: 11/20/23 04:30 Dose: 4 mg Documented By: SERRANX Oxycodone HCl (Oxycodone Hcl Immed Release 5 Mg Tablet) 5 mg PO Q4H PRN PRN Reason: Pain, Moderate(Pain Scale 4-6) Last Admin: 11/20/23 17:43 Dose: 5 mg Documented By: RYLEE Pharmacy Consult (Consult Rx Vancomycin Dosing) 1 each MISCELLANE DAILY PRN PRN Reason: Consult order Sodium Chloride (0.9 % Sodium Chloride Flush 3 Ml Syringe) 3 ml IVFLUSH [facility] Last Admin: 11/21/23 07:49 Dose: 3 ml Documented By: BASHIR Labs 11/21/23 05:41 11/21/23 05:41 Labs: Laboratory Results - last 24 hr 11/20/23 11/21/23 11/21/23 05:05 05:41 05:41 MCV 89.8 MCH 29.9 MCHC 33.3 RDW 13.6 Plt Count 94 L MPV 13.3 H Immature Gran % (Auto) 0.6 H Neut % (Auto) 71.9 Lymph % (Auto) 17.8 L [place] % (Auto) 7.6 Eos % (Auto) 1.5 Baso % (Auto) 0.6 Lymph # (Auto) 1.0 L [place] # (Auto) 0.4 Eos # (Auto) 0.1 Baso # (Auto) 0.0 Abs Immat Gran (auto) 0.03 Absolute Neuts (auto) 3.9 Absolute Nucleated RBC 0.000 Nucleated RBC % (auto) 0.0 Anion Gap 14 Estim Creat Clear Calc 149.0 144.8 Estimated GFR > 60 Random Glucose Calcium Magnesium C-Reactive Protein 17.07 H Vancomycin Trough 11/21/23 11/21/23 05:41 11:20 MCV MCH MCHC RDW Plt Count MPV Immature Gran % (Auto) Neut % (Auto) Lymph % (Auto) [place] % (Auto) Eos % (Auto) Baso % (Auto) Lymph # (Auto) [place] # (Auto) Eos # (Auto) Baso # (Auto) Abs Immat Gran (auto) Absolute Neuts (auto) Absolute Nucleated RBC Nucleated RBC % (auto) Anion Gap Estim Creat Clear Calc Estimated GFR > 60 Random Glucose 88 Calcium 8.5 D Magnesium 2.2 C-Reactive Protein Vancomycin Trough 7.3 L Microbiology Microbiology Results: Microbiology 11/20/23 Unknown Urine Culture - Final Urine clean catch - Urine fu top 11/20/23 10:14 Blood Culture - Preliminary Blood - Venous Prelim: GPC Gram Stain only 11/20/23 10:11 Blood Culture - Preliminary Blood - Venous Prelim: GPC Gram Stain only 11/19/23 21:47 Blood Culture - Preliminary Blood - Venous Staphylococcus aureus 11/19/23 21:47 Blood Culture - Preliminary Blood - Venous Staphylococcus aureus Assessment and Plan (1) Staphylococcus aureus bacteremia: Status: Acute (2) Severe sepsis: Status: Acute Plan 38-year-old female with pertinent history of IV drug use disorder, chronic low back pain, s/p thoracic fusion admitted for sepsis with staph bacteremia and low back pain #Severe sepsis with Staph aureus bacteremia -Pt met severe sepsis criteria 11/18 at 2147 with fevers, tachycardia, thombocytopenia, and hyperbilirubinemia. Lactic acid at that time WNL. Blood cultures x2 now positive with GPC. Resuscited with IVF. on abx -Initial and repeat prelim BC positive for staph aureus, sensitivities pending. Repeat BC pending -ESR 88, CRP 17.07. PCT >3 -MRI lumbar spine w/wo negative for osteo, abscess, or discitis. Has thoracic nidia in place but no focal tenderness on exam, however can consider MR thoracic spine if indicated. IV vanco (intiated 11/18) -cxr, ruq u/s negative for cholecystitis -No evidence of cellulitis/abscess around track young LUE -Echo pending -ID consult -Follow cbc/cultures. Trend pct #Asymptomatic bacteriuria -Urine culture negative. DC Ctx #Diffuse myalgia -also with dark urine -check cpk, concern for rhabdo in setting of drug abuse -Initiate IV NS @125ml/hr #Acute on chronic low back pain -concern for spinal epidural abscess/discitis given IVDA. MRI lumbar spine w/wo negative for osteo, abscess, discitis -ct lumbar spine unremarkable -methadone, prn hydrocodone and oxycodone as above -lidocaine patches #Acute R achilles tendonitis -ice packs, ibuprofen prn -given exercises to perform #acute hypokalemia -repleted, follow lytes #Polysubstance IV use disorder -urine drug screen positive for cocaine, opiates, fentanyl, methadone -Resume methadone @ 113mg due to prolonged qtc. PRN hydrocodone and oxycodone available -addiction medicine consult #Acute thrombocytopenia -due to infection as above #Acute hypokalemia -repleted, resolved #Elevated LFTs -likely r/t acute infection -HIV and hep c ab pending given hx ivda #normocytic anemia- suspect chronic -h/h above transfusion threshold #Acute hypocalcemia -likely dilutional from iv -dc ivf, follow lytes DVT prophylaxis: Mechanical Full code Pt requires ongoing inpt stay due to severe sepsis with gram positive bacteremia requiring iv abx, echo to evaluate for endocarditis and expert consulation Quality Stroke Does the patient have a stroke diagnosis?: No VTE Prior VTE?: No VTE Risk Level:: Medical - moderate - high VTE Device Contraindication: N/A - Device Ordered VTE Drug Contraindication: Treatment Not Indicated
[2023-11-21] MEDS: vancomycin HCL 1,500 MG in 0.9 % Sodium Chloride 500 ML 333.33 MG IV ×2 (12:58→22:03)
[2023-11-21 13:32] LABS: Alanine Aminotransferase 136 U/L (0-31); Albumin Level 3.2 g/dL (3.5-5.0); Alkaline Phosphatase 108 U/L (39-117); Aspartate Amino Transferase 202 U/L (5-31); Bilirubin Direct 1.3 mg/dL (0.0-0.5); Bilirubin Total 1.7 mg/dL (0.0-1.0); Total Protein 7.2 g/dL (6.5-8.0)
[2023-11-21] MEDS: 0.9 % Sodium Chloride 1,000 ML 125 ML IVCONT ×2 (14:25→22:03)
--- NOTE | 2023-11-21 15:35 | HO.ADDICTCON ---
History of Present Illness Date of Service: 11/21/2023 Chief Complaint: Fever Reason for Consult: prolong QTc -methadone dosing Sources of Information: patient interviewed and chart reviewed HPI Narrative: Patient is a 38 year old female medically admitted with sepsis. OUD on methadone at [facility] --dose confirmed to be 226mg daily, last dose on 11/18 113mg (reduced dose requested by patient due to not feeling well). Dose on 11/19 113mg secondary to prolonged QT. PRN oxycodone and dilaudud available overnight This morning 11/20, QT slightly improved. Dose adjusted to 175mg in AM and 50mg at 2pm --dosing split to address body aches reported by patient. Patient seen in room 359. Awake, alert, sitting up in bed engaged in interview. She reports she has been on dose of 226 for quite some time, and prolonged QT has been an issue in the past, but has not resulted in discontinuation of methadone, but has not allowed for further dose increase. She acknowledged recent opiate use, but identified body aches, headache, difficulty ambulating as reason for using. She reports good supports and feels stable on current dose. Denies any withdrawal sx Review of Systems Constitutional: Reports as per HPI Diagnostics Vital Signs (24Hr): Vital Signs - 24 hr 11/20/23 21:27 11/21/23 01:07 11/21/23 07:01 Temperature 102.6 F H 97 F 97 F Pulse Rate 102 H 88 87 Respiratory Rate 20 18 16 Blood Pressure 115/71 122/76 111/55 L Pulse Oximetry 96 98 93 Oxygen Delivery Method Room Air Room Air Room Air BMI result Body Mass Index 37.7 Labs 11/21/23 05:41 11/21/23 05:41 Labs: Laboratory Results - last 48 hr 11/19/23 11/19/23 11/19/23 21:30 21:47 23:47 WBC 5.2 RBC 3.71 L Hgb 11.1 L Hct 33.0 L MCV 88.9 MCH 29.9 MCHC 33.6 RDW 13.1 Plt Count 93 L MPV 12.5 H Immature Gran % (Auto) 0.4 Neut % (Auto) 80.6 H Lymph % (Auto) 13.0 L [place] % (Auto) 5.6 Eos % (Auto) 0.2 Baso % (Auto) 0.2 Lymph # (Auto) 0.7 L [place] # (Auto) 0.3 Eos # (Auto) 0.0 Baso # (Auto) 0.0 Abs Immat Gran (auto) 0.02 Absolute Neuts (auto) 4.2 Absolute Nucleated RBC 0.000 Nucleated RBC % (auto) 0.0 ESR 88 H Sodium 133 L Potassium 3.0 L Chloride 95 L Carbon Dioxide 23 Anion Gap 18 BUN 14 Creatinine 0.83 Estim Creat Clear Calc 122.1 Estimated GFR > 60 Random Glucose 69 Lactic Acid 1.5 Calcium 8.9 Magnesium 2.0 Total Bilirubin 2.3 H Direct Bilirubin 1.7 H AST 105 H ALT 86 H Alkaline Phosphatase 105 Total Creatine Kinase Troponin I High Sens < 2.7 C-Reactive Protein Total Protein 7.5 Albumin 3.4 L Lipase 27 Procalcitonin 3.28 Beta HCG, Quant < 2 Urine Color Dark Yellow Urine Appearance Cloudy Urine pH 6.0 Ur Specific [place] 1.020 Urine Protein 30 (1+) H Urine Glucose (UA) Negative Urine Ketones 80 Urine Blood Trace H Urine Nitrite Negative Ur Leukocyte Esterase Small (1+) H Urine RBC 3-5 H Urine WBC 0-5 Ur Squamous Epith Cells 11-20 Urine Bacteria 2+ Hyaline Casts 0-2 Vancomycin Trough Urine Opiates Screen POSITIVE H Ur Buprenorphine Scrn Not Detected Ur Oxycodone Screen Not Detected Urine Methadone Screen Positive H Urine Fentanyl Screen POSITIVE H Ur Barbiturates Screen Not Detected Ur Phencyclidine Scrn Not Detected Ur Amphetamines Screen Not Detected U Benzodiazepines Scrn Not Detected Urine Cocaine Screen POSITIVE H U Marijuana (THC) Screen Not Detected Influenza Type A (PCR) NEGATIVE Influenza Type B (PCR) NEGATIVE RSV RNA Qual (PCR) NEGATIVE SARS-CoV-2 RNA (RT-PCR) NEGATIVE 11/20/23 11/21/23 11/21/23 05:05 05:41 05:41 WBC 5.2 5.4 RBC 3.48 L 4.01 L Hgb 10.5 L 12.0 Hct 31.2 L 36.0 L MCV 89.7 89.8 MCH 30.2 29.9 MCHC 33.7 33.3 RDW 13.3 13.6 Plt Count 79 L 94 L MPV 13.4 H 13.3 H Immature Gran % (Auto) 0.8 H 0.6 H Neut % (Auto) 79.8 H 71.9 Lymph % (Auto) 11.5 L 17.8 L [place] % (Auto) 7.3 7.6 Eos % (Auto) 0.2 1.5 Baso % (Auto) 0.4 0.6 Lymph # (Auto) 0.6 L 1.0 L [place] # (Auto) 0.4 0.4 Eos # (Auto) 0.0 0.1 Baso # (Auto) 0.0 0.0 Abs Immat Gran (auto) 0.04 H 0.03 Absolute Neuts (auto) 4.2 3.9 Absolute Nucleated RBC 0.000 0.000 Nucleated RBC % (auto) 0.0 0.0 ESR Sodium 134 L 137 Potassium 3.5 3.1 L Chloride 103 100 Carbon Dioxide 20 L 26 Anion Gap 15 14 BUN 9 6 L Creatinine 0.72 0.68 0.70 Estim Creat Clear Calc 140.7 149.0 Estimated GFR > 60 Random Glucose 81 Lactic Acid Calcium 7.6 L D Magnesium Total Bilirubin Direct Bilirubin AST ALT Alkaline Phosphatase Total Creatine Kinase Troponin I High Sens C-Reactive Protein 17.07 H Total Protein Albumin Lipase Procalcitonin Beta HCG, Quant Urine Color Urine Appearance Urine pH Ur Specific [place] Urine Protein Urine Glucose (UA) Urine Ketones Urine Blood Urine Nitrite Ur Leukocyte Esterase Urine RBC Urine WBC Ur Squamous Epith Cells Urine Bacteria Hyaline Casts Vancomycin Trough Urine Opiates Screen Ur Buprenorphine Scrn Ur Oxycodone Screen Urine Methadone Screen Urine Fentanyl Screen Ur Barbiturates Screen Ur Phencyclidine Scrn Ur Amphetamines Screen U Benzodiazepines Scrn Urine Cocaine Screen U Marijuana (THC) Screen Influenza Type A (PCR) Influenza Type B (PCR) RSV RNA Qual (PCR) SARS-CoV-2 RNA (RT-PCR) 11/21/23 11/21/23 11/21/23 05:41 05:41 11:20 WBC RBC Hgb Hct MCV MCH MCHC RDW Plt Count MPV Immature Gran % (Auto) Neut % (Auto) Lymph % (Auto) [place] % (Auto) Eos % (Auto) Baso % (Auto) Lymph # (Auto) [place] # (Auto) Eos # (Auto) Baso # (Auto) Abs Immat Gran (auto) Absolute Neuts (auto) Absolute Nucleated RBC Nucleated RBC % (auto) ESR Sodium Potassium Chloride Carbon Dioxide Anion Gap BUN Creatinine Estim Creat Clear Calc 144.8 Estimated GFR > 60 > 60 Random Glucose 88 Lactic Acid Calcium 8.5 D Magnesium 2.2 Total Bilirubin 1.7 H Direct Bilirubin 1.3 H AST 202 H ALT 136 H Alkaline Phosphatase 108 Total Creatine Kinase 14 L Troponin I High Sens C-Reactive Protein Total Protein 7.2 Albumin 3.2 L Lipase Procalcitonin Beta HCG, Quant Urine Color Urine Appearance Urine pH Ur Specific [place] Urine Protein Urine Glucose (UA) Urine Ketones Urine Blood Urine Nitrite Ur Leukocyte Esterase Urine RBC Urine WBC Ur Squamous Epith Cells Urine Bacteria Hyaline Casts Vancomycin Trough 7.3 L Urine Opiates Screen Ur Buprenorphine Scrn Ur Oxycodone Screen Urine Methadone Screen Urine Fentanyl Screen Ur Barbiturates Screen Ur Phencyclidine Scrn Ur Amphetamines Screen U Benzodiazepines Scrn Urine Cocaine Screen U Marijuana (THC) Screen Influenza Type A (PCR) Influenza Type B (PCR) RSV RNA Qual (PCR) SARS-CoV-2 RNA (RT-PCR) Imaging Radiology Impressions: ITS Impressions Chest X-Ray 11/19/23 22:05 IMPRESSION: Minimal increased right basilar markings more likely due to atelectasis. Abdomen Ultrasound 11/19/23 23:00 IMPRESSION: 1. Hepatomegaly and hepatic steatosis. 2. Sludge in the gallbladder. No evidence of acute cholecystitis. Head CT 11/19/23 23:10 IMPRESSION: No acute intracranial pathology. Lumbar Spine CT 11/20/23 01:54 IMPRESSION: No acute findings identified in the lumbar spine. Given patient's symptoms, assessment for osteomyelitis or abscess would be better performed with pre and postcontrast MRI. Lumbar Spine MRI 11/20/23 12:52 IMPRESSION: Mild spondylosis at the L5-S1 level. Hypertrophic facet arthropathy at the L4-L5 level. No central canal stenosis or foraminal narrowing. Partially visualized posterior fusion hardware at the lower thoracic levels extending to the L1 level. No imaging findings suspicious for discitis/osteomyelitis. Mental Status Exam Mental Status Exam Patient Appearance: Well Grooomed Level of Consciousness: Awake, Appropriate and Alert Medications Medications Current Medications Acetaminophen (Acetaminophen 325 Mg Tablet) 650 mg PO Q6H PRN PRN Reason: Fever >100.4 Last Admin: 11/20/23 21:35 Dose: 650 mg Acetaminophen (Acetaminophen 325 Mg Tablet) 650 mg PO Q6H PRN PRN Reason: Pain, Mild (Pain Scale 1-3) Gabapentin (Gabapentin 300 Mg Capsule) 300 mg PO BID ANTONINA Last Admin: 11/21/23 07:52 Dose: 300 mg Gabapentin (Gabapentin 300 Mg Capsule) 300 mg PO DAILY PRN PRN Reason: Pain, Mild (Pain Scale 1-3) Hydromorphone HCl (Hydromorphone Hcl 0.5 Mg/0.5 Ml Syringe) 1 mg IVPUSH Q4H PRN; Protocol PRN Reason: Pain, Severe (Pain Scale 7-10) Last Admin: 11/20/23 21:35 Dose: 1 mg Vancomycin HCl 1,500 mg/ (Sodium Chloride) 500 mls @ 333.333 mls/hr IV Q8H [facility] Last Infusion: 11/21/23 14:40 Dose: Infused Sodium Chloride (Ns) 1,000 mls @ 125 mls/hr IVCONT .Q8H [facility] Last Admin: 11/21/23 14:25 Dose: 125 mls/hr Ibuprofen (Ibuprofen 600 Mg Tablet) 600 mg PO Q6H PRN PRN Reason: heel pain Lidocaine (Lidocaine 4 % Patch Adh..Patch) 2 patch TRANSDERMA DAILY [facility]; Protocol Last Admin: 11/21/23 07:54 Dose: 2 patch Melatonin (Melatonin 3 Mg Tablet) 6 mg PO BEDTIME PRN PRN Reason: Insomnia Methadone HCl (Methadone Hcl 20 Mg/2 Ml Oral.Conc) 50 mg PO DAILY@1400 [facility] Methadone HCl (Methadone Hcl 20 Mg/2 Ml Oral.Conc) 175 mg PO DAILY [facility] Ondansetron HCl (Ondansetron Hcl 4 Mg/2 Ml Vial) 4 mg IVPUSH Q8H PRN PRN Reason: Nausea and Vomiting Last Admin: 11/20/23 04:30 Dose: 4 mg Oxycodone HCl (Oxycodone Hcl Immed Release 5 Mg Tablet) 5 mg PO Q4H PRN PRN Reason: Pain, Moderate(Pain Scale 4-6) Last Admin: 11/20/23 17:43 Dose: 5 mg Pharmacy Consult (Consult Rx Vancomycin Dosing) 1 each MISCELLANE DAILY PRN PRN Reason: Consult order Sodium Chloride (0.9 % Sodium Chloride Flush 3 Ml Syringe) 3 ml IVFLUSH QSHIFT [facility] Last Admin: 11/21/23 07:49 Dose: 3 ml Allergies Allergies Allergy/AdvReac Type Severity Reaction Status Date / Time No Known Allergies Allergy Verified 11/19/23 20:55 Assessment & Plan Assessment & Plan (1) Opioid use disorder: Status: Acute Code(s): F11.90 - Opioid use, unspecified, uncomplicated Assessment and Plan: QT shortened some-Mg WNL methadone full dose administered today (split dose 175+50) if EKG okay in AM, resume home dosing--if not keep 175mg and hold 50mg dose Total time managing care of this patient today __35__ minutes. PMFSH Past Medical History Medical History Chronic back pain Opiate abuse, continuous Family History Family history: reviewed and not pertinent Social History Social History Housing: Apartment Alcohol intake: never Patient Tobacco Use Status: Former Tobacco user service: No
[2023-11-21 16:00] VITALS: BP 104/58; PULSE 75; RESP 16; TEMP 36.4; O2SAT 94
[2023-11-21 20:00] VITALS: BP 115/58; PULSE 94; RESP 16; TEMP 36.3; O2SAT 94
[2023-11-22 03:08] VITALS: BP 113/54; PULSE 96; RESP 16; TEMP 37.2; O2SAT 95
[2023-11-22] MEDS: 0.9 % Sodium Chloride 1,000 ML 125 ML IVCONT ×3 (05:31→22:34)
[2023-11-22] MEDS: vancomycin HCL 1,500 MG in 0.9 % Sodium Chloride 500 ML 333.33 MG IV (05:31)
[2023-11-22 05:54] LABS: Anion Gap 12 (12-20); Blood Urea Nitrogen 4 mg/dL (9-16); Calcium 7.8 mg/dL (8.4-10.2); Carbon Dioxide 24 mmol/L (22-29); Chloride 105 mmol/L (96-108); Creatinine Clr Calc Pharmacy 144.8; Estimated Glomerular Filt Rate > 60; Glucose Random 140 mg/dL (60-115); Potassium 3.2 mmol/L (3.3-5.1); Sodium 138 mmol/L (135-145)
--- NOTE | 2023-11-22 07:00 | CA_ITS ---
Transthoracic Echocardiogram Patient (Last, First, Middle): Caridad Berkowitz, Gender: Female Date of : 1985 Age: 38 Procedure Date: 11/22/2023 Procedure Type: Transthoracic Echocardiogram Location: S3E Height: 172.72 cm Weight: 112.49 kg BSA: 2.24 m2 Heart Rate: bpm BP: 117 / 71 mmHg Blow Mold Machine Operator: PAUL Referring MD: Betty KHAN Industrial Ecology Technician: Delgado Williamson MD Symptoms: bacteremia Study Quality: Good ECG Rhythm: Sinus Conclusions: - 1. A mobile mass on the anterior tricuspid leaflet most suggestive of a vegetation 2. Normal LV and RV size and systolic function with LVEF of 60 65% 3. Mild mitral and [id number] tricuspid regurgitation 4. Normal RV systolic pressure 5. No gross pericardial effusion Findings Left Ventricle Normal left ventricular size, thickness, and systolic function. The visually estimated ejection fraction is between 60-65%. Diastolic function is normal for age. Right Ventricle Normal right ventricular cavity size and systolic function. Atria The left atrium is likely dilated. There is no evidence of interatrial shunt. The right atrium is likely dilated. Aortic Valve Normal aortic valve structure and function. There is no aortic valve stenosis. There is no aortic valve regurgitation. Mitral Valve Normal mitral valve structure and function. There is mild mitral valve regurgitation. There is no mitral valve stenosis. Pulmonic Valve The pulmonic valve is likely normal. Tricuspid Valve Normal tricuspid valve structure. There is mild to moderate tricuspid valve regurgitation. There is a moderate mobile mass on the anterior tricuspid valve leaflet. The mass is consistent with possible vegetation. The right ventricular systolic pressure is normal. The right ventricular systolic pressure is 25 mmHg. Normal right atrial pressure. Great Vessels All visible segments of the aorta are normal in size. The pulmonary artery was not well visualized. Venous The inferior vena cava is normal in size and collapses greater than 50% with inspiration. Pericardium/Pleural There is no evidence of pericardial effusion. Prior Study Comparison No prior study available for comparison. Measurements 2D Linear Measurements IVSd: 0.88 0.6-0.9/0.6-1.0 cm LVIDd: 5.25 3.9-5.3/4.2-5.9 cm LVIDd Index: 2.34 2.4-3.2/2.2-3.1 cm/m2 LVIDs: 3.54 2.0-3.6 cm LVPWd: 0.79 0.7-1.1 cm Ao Root: 2.60 2.1-3.5 cm LA Diam: 4.10 2.7-3.8/3.0-4.0 cm LAIDs Index: 1.83 1.5-2.3 cm/m2 LV Mass: 193.54 67-162/88-224 g LV Mass Index: 86.40 43-95/49-115 g/m2 LVOT Diam: 2.30 3.0+(-)1.3 cm Mitral Valve MV VTI: 0.31 MV Pk Oscar: 0.93 MV Mn Oscar: 0.61 MV Pk Grad: 3.00 MV Mn Grad: 2.00 MV Pk E: 0.91 MV PK A: 0.76 MV Decel Time: 157.00 E/A: 1.20 E'Lateral: 15.20 E'Medial: 9.90 E/E' Med: 9.20 E/E' Lat: 6.00 PHT: 46.00 MVA PHT: 4.78 MVA Continuity: 2.66 Decel [place]: 5.77 Aortic Valve AoV Pk Oscar: 1.45 AoV Mn Oscar: 0.99 AoV VTI: 0.30 AoV Pk Grad: 8.00 Aov Mn Grad: 5.00 ALEXA Cont.VTI: 2.73 LVOT LVOT Pk Oscar: 1.07 LVOT Mn Oscar: 0.69 LVOT VTI: 0.20 LVOT Pk Grad: 5.00 LVOT Mn Grad: 2.00 LVOT Diam: 2.30 LVOT Area: 4.15 Diastolic Function MV Pk E: 0.91 MV Pk A: 0.76 E/A: 1.20 E'Medial: 9.90 E/E' Med: 9.20 E' Laterial: 15.20 E/E' Lat: 6.00 Right Ventricle TAPSE (mm): 23.00 TVS' Oscar: 11.00 Tricuspid Valve TR Pk Oscar: 2.35 TR Pk Grad: 22.00 RA Press: 3.00 RVSP: 25.00 Great Vessels Aorta Ao Root-2D: 2.60 2.0-3.7 cm Ao Asc: 2.80 2.1-3.4 cm Pulmonary Valve PV Pk Oscar: 1.11 Peak PV Grad: 5.00 Updated in Other Vendor System with Status of Final Delgado Williamson MD electronically signed on 11/23/2023 8:36:49 AM with status of Final
[2023-11-22 07:02] VITALS: BP 117/71; PULSE 86; RESP 16; TEMP 36.4; O2SAT 92
[2023-11-22] MEDS: Gabapentin 300 MG CAPSULE PO ×2 (08:10→22:38)
[2023-11-22] MEDS: methADONE HCl 20 MG/2 ML ORAL.CONC 175 MG PO (08:11)
[2023-11-22 09:05] LABS: HIV AB/AG Nonreactive (Nonreactive); HIV Num 1 0.04 S/CO (0.00-0.99); ~HepC Num1 0.18 S/CO (0.00-0.79); ~Hepatitis C Antibody Nonreactive (Nonreactive)
--- NOTE | 2023-11-22 11:44 | MHC.RECOVRN ---
Met with pt to check in and provide support. Pt sitting in bed, awake, alert, easily engages in conversation. Reports feeling better today, is aware she will receive full dose methadone. Pt reports prior to coming to the hospital she was using heroin/fentanyl, 1 bag, IV in order to address pain and discomfort. Pt reports she has been on methadone x 7 years through [facility], has had success utilizing this medication. Pt denies withdrawal symptoms. Pt denies questions or concerns for t/w. Discussed with Anna Austin APRN.
[2023-11-22 12:17] LABS: Vancomycin Trough 18.5 mcg/mL (10.0-20.0)
--- NOTE | 2023-11-22 12:34 | HE.PHANOTE ---
CHIN Changing dose to 1250mg Q8H. Next trough to be drawn 11/22 @1100. New predicted AUC 488, predicted trough 13.9. Being cautious with potential dose dumping and previous predicted trough was 14.8 but came back at 18.5 so dose was decreased.
--- NOTE | 2023-11-22 13:12 | MHC.CM.PN ---
per betito pts dc pending cultuires and an echo
[2023-11-22] MEDS: methADONE HCl 20 MG/2 ML ORAL.CONC 50 MG PO (13:46)
[2023-11-22] MEDS: vancomycin HCL 1,250 MG in 0.9 % Sodium Chloride 250 ML 166.67 MG IV ×2 (13:46→22:35)
--- NOTE | 2023-11-22 15:01 | HO.PM.IMPN ---
Subjective Subjective Date of Service: 11/23/23 Interval History: Seen in follow up for fevers, back pain Staph aureus bacteremia Denies chills, sweats. Review of Systems Review of Systems: Yes all other systems are reviewed and are negative Physical Exam Vital Signs: Vital Signs: Last Vital Signs Temp 97.6 F 11/22/23 07:02 Pulse 86 11/22/23 07:02 Resp 16 11/22/23 07:02 BP 117/71 11/22/23 07:02 Pulse Ox 92 11/22/23 07:02 O2 Del Method Room Air 11/22/23 07:02 BMI result Body Mass Index 37.7 Appearing in no acute distress lung sounds are clear to auscultation heart regular rate rhythm, clear S1, S2 positive bowel sounds, abdomen is soft, nontender neuro patient is alert x3, no focal deficits Objective Data Active Medications Acetaminophen (Acetaminophen 325 Mg Tablet) 650 mg PO Q6H PRN PRN Reason: Fever >100.4 Last Admin: 11/20/23 21:35 Dose: 650 mg Documented By: PASHA Acetaminophen (Acetaminophen 325 Mg Tablet) 650 mg PO Q6H PRN PRN Reason: Pain, Mild (Pain Scale 1-3) Gabapentin (Gabapentin 300 Mg Capsule) 300 mg PO BID [facility] Last Admin: 11/22/23 08:10 Dose: 300 mg Documented By: TYLER Gabapentin (Gabapentin 300 Mg Capsule) 300 mg PO DAILY PRN PRN Reason: Pain, Mild (Pain Scale 1-3) Hydromorphone HCl (Hydromorphone Hcl 0.5 Mg/0.5 Ml Syringe) 1 mg IVPUSH Q4H PRN; Protocol PRN Reason: Pain, Severe (Pain Scale 7-10) Last Admin: 11/20/23 21:35 Dose: 1 mg Documented By: PASHA Sodium Chloride (Ns) 1,000 mls @ 125 mls/hr IVCONT .Q8H [facility] Last Admin: 11/22/23 13:47 Dose: 125 mls/hr Documented By: TYLER Vancomycin HCl 1,250 mg/ (Sodium Chloride) 250 mls @ 166.667 mls/hr IV Q8H [facility] Last Admin: 11/22/23 13:46 Dose: 166.67 mls/hr Documented By: TYLER Ibuprofen (Ibuprofen 600 Mg Tablet) 600 mg PO Q6H PRN PRN Reason: heel pain Lidocaine (Lidocaine 4 % Patch Adh..Patch) 2 patch TRANSDERMA DAILY [facility]; Protocol Last Admin: 11/22/23 08:16 Dose: Not Given Documented By: TYLER Non-Admin Reason: Patient Refused Melatonin (Melatonin 3 Mg Tablet) 6 mg PO BEDTIME PRN PRN Reason: Insomnia Methadone HCl (Methadone Hcl 20 Mg/2 Ml Oral.Conc) 50 mg PO DAILY@1400 [facility] Last Admin: 11/22/23 13:46 Dose: 50 mg Documented By: TYLER Methadone HCl (Methadone Hcl 20 Mg/2 Ml Oral.Conc) 175 mg PO DAILY [facility] Last Admin: 11/22/23 08:11 Dose: 175 mg Documented By: TYLER Ondansetron HCl (Ondansetron Hcl 4 Mg/2 Ml Vial) 4 mg IVPUSH Q8H PRN PRN Reason: Nausea and Vomiting Last Admin: 11/20/23 04:30 Dose: 4 mg Documented By: THEAANGloria Oxycodone HCl (Oxycodone Hcl Immed Release 5 Mg Tablet) 5 mg PO Q4H PRN PRN Reason: Pain, Moderate(Pain Scale 4-6) Last Admin: 11/20/23 17:43 Dose: 5 mg Documented By: RYLEE Pharmacy Consult (Consult Rx Vancomycin Dosing) 1 each MISCELLANE DAILY PRN PRN Reason: Consult order Sodium Chloride (0.9 % Sodium Chloride Flush 3 Ml Syringe) 3 ml IVFLUSH QSDCFT [facility] Last Admin: 11/22/23 08:09 Dose: Not Given Documented By: TYLER Non-Admin Reason: IV Running Labs 11/21/23 05:41 11/22/23 05:12 Labs: Laboratory Results - last 24 hr 11/20/23 11/22/23 11/22/23 16:36 05:12 12:01 Anion Gap 12 Estim Creat Clear Calc 144.8 Estimated GFR > 60 Random Glucose 140 H Calcium 7.8 L D Vancomycin Trough 18.5 Hepatitis C Ab (EIA) Nonreactive HIV 1&2 Ab/P24 Ag 4thGn Nonreactive Microbiology Microbiology Results: Microbiology 11/21/23 08:10 Blood Culture - Preliminary Blood - Venous No growth after 24 hours. 11/21/23 08:30 Blood Culture - Preliminary Blood - Venous No growth after 24 hours. 11/20/23 10:14 Blood Culture - Final Blood - Venous Staphylococcus aureus 11/20/23 10:11 Blood Culture - Final Blood - Venous Staphylococcus aureus 11/19/23 21:47 Blood Culture - Final Blood - Venous Staphylococcus aureus 11/19/23 21:47 Blood Culture - Final Blood - Venous Staphylococcus aureus Assessment and Plan (1) Staphylococcus aureus bacteremia: Status: Acute (2) Severe sepsis: Status: Acute Plan 38-year-old female with pertinent history of IV drug use disorder, chronic low back pain, s/p thoracic fusion admitted for sepsis with staph bacteremia and low back pain Severe sepsis with Staph aureus bacteremia. Sepsis resolved Pt met severe sepsis criteria 11/18 at 2147 with fevers, tachycardia, thombocytopenia, and hyperbilirubinemia. ESR 88, CRP 17.07. PCT >3 MRI lumbar spine w/wo negative for osteo, abscess, or discitis. Has thoracic nidia in place but no focal tenderness on exam, however can consider MR thoracic spine if indicated. continue IV vanco Echo result pending ID consult repeat blood cx neg after 24 hrs Asymptomatic bacteriuria Urine culture negative. Diffuse myalgia also with dark urine check cpk, concern for rhabdo in setting of drug abuse Initiate IV NS @125ml/hr Acute on chronic low back pain concern for spinal epidural abscess/discitis given IVDA. MRI lumbar spine w/wo negative for osteo, abscess, discitis ct lumbar spine unremarkable methadone, prn hydrocodone and oxycodone as above lidocaine patches Acute R achilles tendonitis ice packs, ibuprofen prn given exercises to perform acute hypokalemia repleted, follow lytes Polysubstance IV use disorder urine drug screen positive for cocaine, opiates, fentanyl, methadone Resume methadone @ 113mg due to prolonged qtc. PRN hydrocodone and oxycodone available addiction medicine consult Acute thrombocytopenia due to infection as above Elevated LFTs likely r/t acute infection HIV and hep c ab neg normocytic anemia- suspect chronic h/h above transfusion threshold Acute hypocalcemia likely dilutional from iv dc ivf, follow lytes DVT prophylaxis: Mechanical Attending Dr. Dowell Full code Pt requires ongoing inpt stay due to severe sepsis with gram positive bacteremia requiring iv abx, echo to evaluate for endocarditis and expert consulation Quality Stroke Does the patient have a stroke diagnosis?: No VTE Prior VTE?: No VTE Risk Level:: Medical - moderate - high VTE Device Contraindication: N/A - Device Ordered VTE Drug Contraindication: Treatment Not Indicated
[2023-11-22 15:05] VITALS: BP 120/68; PULSE 67; RESP 16; TEMP 36.2; O2SAT 95
[2023-11-22] MEDS: Potassium Chloride ER 20 MEQ TAB.ER.PRT 40 MEQ PO (15:49)
[2023-11-22 19:30] VITALS: BP 132/72; PULSE 89; RESP 16; TEMP 36.8; O2SAT 98
[2023-11-22] MEDS: oxyCODONE HCl Immed Release 5 MG TABLET PO (22:39)
[2023-11-23 03:04] VITALS: BP 132/71; PULSE 86; RESP 16; TEMP 36.9; O2SAT 94
[2023-11-23] MEDS: vancomycin HCL 1,250 MG in 0.9 % Sodium Chloride 250 ML 166.67 MG IV ×2 (05:04→21:55)
[2023-11-23] MEDS: oxyCODONE HCl Immed Release 5 MG TABLET PO ×3 (05:10→22:06)
[2023-11-23 07:03] LABS: Creatinine Clr Calc Pharmacy 144.8; Estimated Glomerular Filt Rate > 60
--- NOTE | 2023-11-23 07:03 | P.PNIM_ITS ---
Subjective Subjective Date of Service: 11/23/23 Interval History: Seen in follow up for fevers, back pain Staph aureus bacteremia Denies chills, sweats. Review of Systems Review of Systems: Yes all other systems are reviewed and are negative Physical Exam 2 Vital Signs: Vital Signs: Last Vital Signs Temp 98.5 F 11/23/23 03:04 Pulse 86 11/23/23 03:04 Resp 16 11/23/23 03:04 BP 132/71 11/23/23 03:04 Pulse Ox 94 11/23/23 03:04 O2 Del Method Room Air 11/23/23 03:04 BMI result Body Mass Index 37.7 Appearing in no acute distress lung sounds are clear to auscultation heart regular rate rhythm, clear S1, S2 positive bowel sounds, abdomen is soft, nontender neuro patient is alert x3, no focal deficits Objective Data Active Medications Acetaminophen (Acetaminophen 325 Mg Tablet) 650 mg PO Q6H PRN PRN Reason: Fever >100.4 Last Admin: 11/20/23 21:35 Dose: 650 mg Documented By: PASHA Acetaminophen (Acetaminophen 325 Mg Tablet) 650 mg PO Q6H PRN PRN Reason: Pain, Mild (Pain Scale 1-3) Gabapentin (Gabapentin 300 Mg Capsule) 300 mg PO BID [facility] Last Admin: 11/22/23 22:38 Dose: 300 mg Documented By: STEPHENIE Gabapentin (Gabapentin 300 Mg Capsule) 300 mg PO DAILY PRN PRN Reason: Pain, Mild (Pain Scale 1-3) Hydromorphone HCl (Hydromorphone Hcl 0.5 Mg/0.5 Ml Syringe) 1 mg IVPUSH Q4H PRN; Protocol PRN Reason: Pain, Severe (Pain Scale 7-10) Last Admin: 11/20/23 21:35 Dose: 1 mg Documented By: PASHA Sodium Chloride (Ns) 1,000 mls @ 125 mls/hr IVCONT .Q8H [facility] Last Admin: 11/23/23 05:36 Dose: Not Given Documented By: STEPHENIE Non-Admin Reason: IV Running Vancomycin HCl 1,250 mg/ (Sodium Chloride) 250 mls @ 166.667 mls/hr IV Q8H [facility] Last Infusion: 11/23/23 06:50 Dose: Infused Documented By: HO.WYSK Ibuprofen (Ibuprofen 600 Mg Tablet) 600 mg PO Q6H PRN PRN Reason: heel pain Lidocaine (Lidocaine 4 % Patch Adh..Patch) 2 patch TRANSDERMA DAILY [facility]; Protocol Last Admin: 11/22/23 08:16 Dose: Not Given Documented By: TYLER Non-Admin Reason: Patient Refused Melatonin (Melatonin 3 Mg Tablet) 6 mg PO BEDTIME PRN PRN Reason: Insomnia Methadone HCl (Methadone Hcl 20 Mg/2 Ml Oral.Conc) 50 mg PO DAILY@1400 [facility] Last Admin: 11/22/23 13:46 Dose: 50 mg Documented By: TYLER Methadone HCl (Methadone Hcl 20 Mg/2 Ml Oral.Conc) 175 mg PO DAILY [facility] Last Admin: 11/22/23 08:11 Dose: 175 mg Documented By: TYLER Ondansetron HCl (Ondansetron Hcl 4 Mg/2 Ml Vial) 4 mg IVPUSH Q8H PRN PRN Reason: Nausea and Vomiting Last Admin: 11/20/23 04:30 Dose: 4 mg Documented By: PAULO Oxycodone HCl (Oxycodone Hcl Immed Release 5 Mg Tablet) 5 mg PO Q4H PRN PRN Reason: Pain, Moderate(Pain Scale 4-6) Last Admin: 11/23/23 05:10 Dose: 5 mg Documented By: STEPHENIE Pharmacy Consult (Consult Rx Vancomycin Dosing) 1 each MISCELLANE DAILY PRN PRN Reason: Consult order Sodium Chloride (0.9 % Sodium Chloride Flush 3 Ml Syringe) 3 ml IVFLUSH QSCOFT [facility] Last Admin: 11/23/23 00:24 Dose: Not Given Documented By: STEPHENIE Non-Admin Reason: IV Running Labs 11/21/23 05:41 11/22/23 05:12 Labs: Laboratory Results - last 24 hr 11/20/23 11/22/23 16:36 12:01 Vancomycin Trough 18.5 Hepatitis C Ab (EIA) Nonreactive HIV 1&2 Ab/P24 Ag 4thGn Nonreactive Microbiology Microbiology Results: Microbiology 11/21/23 08:10 Blood Culture - Preliminary Blood - Venous No growth after 24 hours. 11/21/23 08:30 Blood Culture - Preliminary Blood - Venous No growth after 24 hours. 11/20/23 10:14 Blood Culture - Final Blood - Venous Staphylococcus aureus 11/20/23 10:11 Blood Culture - Final Blood - Venous Staphylococcus aureus 11/19/23 21:47 Blood Culture - Final Blood - Venous Staphylococcus aureus 11/19/23 21:47 Blood Culture - Final Blood - Venous Staphylococcus aureus Assessment and Plan (1) Staphylococcus aureus bacteremia: Status: Acute (2) Severe sepsis: Status: Acute Plan 38-year-old female with pertinent history of IV drug use disorder, chronic low back pain, s/p thoracic fusion admitted for sepsis with staph bacteremia and low back pain Severe sepsis with Staph aureus bacteremia. Sepsis resolved Pt met severe sepsis criteria 11/18 at 2147 with fevers, tachycardia, thombocytopenia, and hyperbilirubinemia. ESR 88, CRP 17.07. PCT >3 MRI lumbar spine w/wo negative for osteo, abscess, or discitis. Has thoracic nidia in place but no focal tenderness on exam, however can consider MR thoracic spine if indicated. continue IV vanco Echo result pending ID consult repeat blood cx neg after 24 hrs Asymptomatic bacteriuria Urine culture negative. Diffuse myalgia also with dark urine CPK normal Initiate IV NS @125ml/hr Acute on chronic low back pain concern for spinal epidural abscess/discitis given IVDA. MRI lumbar spine w/wo negative for osteo, abscess, discitis ct lumbar spine unremarkable methadone, prn hydrocodone and oxycodone as above lidocaine patches Acute R achilles tendonitis ice packs, ibuprofen prn given exercises to perform acute hypokalemia repleted, follow lytes Polysubstance IV use disorder urine drug screen positive for cocaine, opiates, fentanyl, methadone Resume methadone @ 113mg due to prolonged qtc. PRN hydrocodone and oxycodone available addiction medicine consult Acute thrombocytopenia due to infection as above Elevated LFTs likely r/t acute infection HIV and hep c ab neg normocytic anemia- suspect chronic h/h above transfusion threshold Acute hypocalcemia likely dilutional from iv dc ivf, follow lytes DVT prophylaxis: Mechanical Attending Dr. Dowell Full code Pt requires ongoing inpt stay due to severe sepsis with gram positive bacteremia requiring iv abx, echo to evaluate for endocarditis and expert consulation Quality Stroke Does the patient have a stroke diagnosis?: No VTE Prior VTE?: No VTE Risk Level:: Medical - moderate - high VTE Device Contraindication: N/A - Device Ordered VTE Drug Contraindication: Treatment Not Indicated
[2023-11-23 07:54] VITALS: BP 114/77; PULSE 74; RESP 18; TEMP 37; O2SAT 93
[2023-11-23] MEDS: Acetaminophen 325 MG TABLET 650 MG PO (09:05)
[2023-11-23] MEDS: Gabapentin 300 MG CAPSULE PO ×3 (09:05→21:56)
[2023-11-23] MEDS: methADONE HCl 20 MG/2 ML ORAL.CONC 175 MG PO (09:06)
[2023-11-23] MEDS: 0.9 % Sodium Chloride 1,000 ML 125 ML IVCONT (09:06)
[2023-11-23 11:29] LABS: Vancomycin Random 19.3 mcg/mL (15-20)
[2023-11-23] MEDS: Ibuprofen 600 MG TABLET PO (14:49)
[2023-11-23] MEDS: methADONE HCl 20 MG/2 ML ORAL.CONC 50 MG PO (14:49)
[2023-11-23] MEDS: 0.9 % Sodium Chloride Flush 3 ML SYRINGE IVFLUSH ×2 (14:51→21:56)
--- NOTE | 2023-11-23 14:53 | PC.NURSE ---
Patient has history of fall at home. Patient educated on high fall risk policy and protocol. Patient is refusing bed alarm and camera. patient made aware to call for assistance when going to the bathroom.
[2023-11-23 15:34] VITALS: BP 119/72; PULSE 61; RESP 18; TEMP 36.6; O2SAT 93
--- NOTE | 2023-11-23 15:59 | P.CDIM_ITS ---
PROVIDER RESPONSE TEXT: To clarify, the appropriate diagnosis supported by the clinical indicators: Obesity Due to excess calories QUERY TEXT: PHYSICIAN'S DOCUMENTATION REQUEST Date of Query: 11/23/2023 09:19 AM EDT Patient Name: Caridad Berkowitz Admit Date: 11/20/2023 Dear Abbie Ozuna, A review of the medical record indicates additional documentation may be needed. Please review below and update the documentation accordingly. Clinical Indicators: BMI 37.7 Class II obesity 112.5kg If possible, please provide an associated diagnosis related to the abnormal BMI, such as: Obesity Due to excess calories Obesity Due to other cause Specify the other cause Severe or Morbid Obesity Other (explain) Clinically unable to determine (explain) Thank you, Laura Bello, CCS, CDIS Use of terms such as suspected, likely, concern for, or probable (associated with a specific diagnosi s that is being evaluated, monitored, or treated as if it exists) are acceptable and can be coded in the inpatient se tting, when documented at the time of discharge. Please use your independent medical judgment in providing your response. THIS QUERY IS PART OF THE PERMANENT MEDICAL RECORD
[2023-11-23 19:55] VITALS: BP 122/75; PULSE 71; RESP 18; TEMP 36.2; O2SAT 97
--- NOTE | 2023-11-24 | ECG_ITS ---
Test Reason : QTC CHECK Blood Pressure : / mmHG Vent. Rate : 068 BPM Atrial Rate : 068 BPM P-R Int : 140 ms QRS Dur : 080 ms QT Int : 454 ms P-R-T Axes : 028 020 026 degrees QTc Int : 482 ms Normal sinus rhythm Prolonged QT Abnormal ECG When compared with ECG of 21-NOV-2023 09:05, No significant change was found Referred By: Anna Austin Electronically Signed By:JANNETH HERRERA MD
[2023-11-24 04:00] VITALS: BP 135/69; PULSE 79; RESP 18; TEMP 36.4; O2SAT 96
[2023-11-24] MEDS: vancomycin HCL 1,250 MG in 0.9 % Sodium Chloride 250 ML 166.67 MG IV (05:31)
[2023-11-24 06:57] LABS: Anion Gap 13 (12-20); Blood Urea Nitrogen 5 mg/dL (9-16); Calcium 8.5 mg/dL (8.4-10.2); Carbon Dioxide 22 mmol/L (22-29); Chloride 105 mmol/L (96-108); Creatinine Clr Calc Pharmacy 163.4; Estimated Glomerular Filt Rate > 60; Glucose Random 93 mg/dL (60-115); Potassium 4.4 mmol/L (3.3-5.1); Sodium 136 mmol/L (135-145)
[2023-11-24 07:26] VITALS: BP 112/70; PULSE 74; RESP 17; TEMP 36.3; O2SAT 94
[2023-11-24] MEDS: Gabapentin 300 MG CAPSULE PO ×2 (09:02→19:51)
[2023-11-24] MEDS: methADONE HCl 20 MG/2 ML ORAL.CONC 175 MG PO (09:02)
[2023-11-24] MEDS: 0.9 % Sodium Chloride Flush 3 ML SYRINGE IVFLUSH ×2 (09:02→18:34)
[2023-11-24] MEDS: Lidocaine 4 % Patch ADH..PATCH 2 PATCH TRANSDERMA (09:03)
[2023-11-24] MEDS: oxyCODONE HCl Immed Release 5 MG TABLET PO ×2 (11:11→18:47)
--- NOTE | 2023-11-24 11:14 | HO.PM.IMPN ---
Subjective Subjective Date of Service: 11/24/23 Interval History: Seen in follow up for fevers, back pain Staph aureus bacteremia with endocarditis Denies chills, sweats. Review of Systems Review of Systems: Yes all other systems are reviewed and are negative Physical Exam Vital Signs: Vital Signs: Last Vital Signs Temp 97.4 F 11/24/23 07:26 Pulse 74 11/24/23 07:26 Resp 17 11/24/23 07:26 BP 112/70 11/24/23 07:26 Pulse Ox 94 11/24/23 07:26 O2 Del Method Room Air 11/24/23 07:26 BMI result Body Mass Index 37.7 Appearing in no acute distress lung sounds are clear to auscultation heart regular rate rhythm, clear S1, S2 positive bowel sounds, abdomen is soft, nontender neuro patient is alert x3, no focal deficits Objective Data Active Medications Acetaminophen (Acetaminophen 325 Mg Tablet) 650 mg PO Q6H PRN PRN Reason: Fever >100.4 Last Admin: 11/20/23 21:35 Dose: 650 mg Documented By: PASHA Acetaminophen (Acetaminophen 325 Mg Tablet) 650 mg PO Q6H PRN PRN Reason: Pain, Mild (Pain Scale 1-3) Last Admin: 11/23/23 09:05 Dose: 650 mg Documented By: CARLENE Gabapentin (Gabapentin 300 Mg Capsule) 300 mg PO BID [facility] Last Admin: 11/24/23 09:02 Dose: 300 mg Documented By: RICARDO Gabapentin (Gabapentin 300 Mg Capsule) 300 mg PO DAILY PRN PRN Reason: Pain, Mild (Pain Scale 1-3) Last Admin: 11/23/23 12:53 Dose: 300 mg Documented By: CARLENE Hydromorphone HCl (Hydromorphone Hcl 0.5 Mg/0.5 Ml Syringe) 1 mg IVPUSH Q4H PRN; Protocol PRN Reason: Pain, Severe (Pain Scale 7-10) Last Admin: 11/20/23 21:35 Dose: 1 mg Documented By: PASHA Vancomycin HCl 1,250 mg/ (Sodium Chloride) 250 mls @ 166.667 mls/hr IV Q8H [facility] Last Infusion: 11/24/23 07:18 Dose: Infused Documented By: RICARDO Ibuprofen (Ibuprofen 600 Mg Tablet) 600 mg PO Q6H PRN PRN Reason: heel pain Last Admin: 11/23/23 14:49 Dose: 600 mg Documented By: COTEMA Lidocaine (Lidocaine 4 % Patch Adh..Patch) 2 patch TRANSDERMA DAILY [facility]; Protocol Last Admin: 11/24/23 09:03 Dose: 2 patch Documented By: RICARDO Melatonin (Melatonin 3 Mg Tablet) 6 mg PO BEDTIME PRN PRN Reason: Insomnia Methadone HCl (Methadone Hcl 20 Mg/2 Ml Oral.Conc) 50 mg PO DAILY@1400 [facility] Last Admin: 11/23/23 14:49 Dose: 50 mg Documented By: COTEMA Methadone HCl (Methadone Hcl 20 Mg/2 Ml Oral.Conc) 175 mg PO DAILY [facility] Last Admin: 11/24/23 09:02 Dose: 175 mg Documented By: RICARDO Ondansetron HCl (Ondansetron Hcl 4 Mg/2 Ml Vial) 4 mg IVPUSH Q8H PRN PRN Reason: Nausea and Vomiting Last Admin: 11/20/23 04:30 Dose: 4 mg Documented By: SERRANX Oxycodone HCl (Oxycodone Hcl Immed Release 5 Mg Tablet) 5 mg PO Q4H PRN PRN Reason: Pain, Moderate(Pain Scale 4-6) Last Admin: 11/24/23 11:11 Dose: 5 mg Documented By: RICARDO Pharmacy Consult (Consult Rx Vancomycin Dosing) 1 each MISCELLANE DAILY PRN PRN Reason: Consult order Sodium Chloride (0.9 % Sodium Chloride Flush 3 Ml Syringe) 3 ml IVFLUSH QSHIFT [facility] Last Admin: 11/24/23 09:02 Dose: 3 ml Documented By: RICARDO Labs 11/21/23 05:41 11/24/23 05:20 Labs: Laboratory Results - last 24 hr 11/23/23 11/24/23 10:52 05:20 Hold Purple Top SEE NOTE Anion Gap 13 Estim Creat Clear Calc 163.4 Estimated GFR > 60 Random Glucose 93 Calcium 8.5 D Random Vancomycin 19.3 Microbiology Microbiology Results: Microbiology 11/21/23 08:10 Blood Culture - Preliminary Blood - Venous No growth after 48 hours. 11/21/23 08:30 Blood Culture - Preliminary Blood - Venous No growth after 48 hours. Assessment and Plan (1) Staphylococcus aureus bacteremia: Status: Acute (2) Severe sepsis: Status: Acute Plan 38-year-old female with pertinent history of IV drug use disorder, chronic low back pain, s/p thoracic fusion admitted for sepsis with staph bacteremia and low back pain Staph aureus bacteremia and endocarditis. MRI lumbar spine w/wo negative for osteo, abscess, or discitis. Has thoracic nidia in place but no focal tenderness on exam, however can consider MR thoracic spine if indicated. continue IV vanco Echo> mobile mass on the anterior tricuspid leaflet most suggestive of vegetation ID following>will discuss re abx tx repeat blood cx neg after 48 hrs PICC line ordered Severe sepsis. Sepsis resolved Pt met severe sepsis criteria 11/18 at 2147 with fevers, tachycardia, thombocytopenia, and hyperbilirubinemia. ESR 88, CRP 17.07. PCT >3 Asymptomatic bacteriuria Urine culture negative. Diffuse myalgia. Resolved also with dark urine CPK normal s/p IV NS @125ml/hr Acute on chronic low back pain concern initially for spinal epidural abscess/discitis given IVDA. MRI lumbar spine w/wo negative for osteo, abscess, discitis ct lumbar spine unremarkable methadone, prn hydrocodone and oxycodone as above lidocaine patches Acute R achilles tendonitis. Resolved ice packs, ibuprofen prn given exercises to perform acute hypokalemia. Resolved repleted, follow lytes Polysubstance IV use disorder urine drug screen positive for cocaine, opiates, fentanyl, methadone Resume methadone @ 113mg due to prolonged qtc. PRN hydrocodone and oxycodone available addiction medicine consult Acute thrombocytopenia due to infection as above Elevated LFTs likely r/t acute infection HIV and hep c ab neg normocytic anemia- suspect chronic h/h above transfusion threshold Acute hypocalcemia. Resolved likely dilutional from iv dc ivf, follow lytes Obesity. BMI 37.7 Discussed importance of weight management as this may be contributing to worsening of other comorbidities DVT prophylaxis: Mechanical Attending Dr. Dowell Full code DISPO will need placement at [facility] or similar facility Pt requires ongoing inpt stay due to severe sepsis with gram positive bacteremia requiring iv abx, echo to evaluate for endocarditis and expert consulation Quality Stroke Does the patient have a stroke diagnosis?: No VTE Prior VTE?: No VTE Risk Level:: Medical - moderate - high VTE Device Contraindication: N/A - Device Ordered VTE Drug Contraindication: Treatment Not Indicated
[2023-11-24 11:30] LABS: Vancomycin Random 17.3 mcg/mL (15-20)
[2023-11-24] MEDS: methADONE HCl 20 MG/2 ML ORAL.CONC 50 MG PO (13:33)
[2023-11-24] MEDS: vancomycin HCL 1,000 MG in 0.9 % Sodium Chloride 250 ML 270 MG IV (13:33)
[2023-11-24] MEDS: bisacodyL 5 MG TABLET.DR 10 MG PO (13:38)
--- NOTE | 2023-11-24 15:34 | HO.ADDICTPRO ---
Subjective Subjective Date of Service: 11/24/23 Reason For Visit: Fever Interim History: Patient seen in follow up methadone dose still split due to earlier QT prolongation follow up EKGs show prolonged QT, however no longer in the 500s as it previously was patient reporting constipation no other complaints would like to return to once daily dosing Review of Systems Acute medical concerns: Yes Review of Systems Constitutional: Reports as per HPI and Reports no additional constitutional complaints Mental Status Exam Mental Status Exam Patient Appearance: Appropriate Level of Consciousness: Awake, Appropriate and Alert Patient Behavior: Appropriate Mood Description: Calm Affect Description: Calm Speech Pattern: Clear Diagnostics Vital Signs (24Hr): Vital Signs - 24 hr 11/23/23 19:55 11/24/23 04:00 11/24/23 07:26 Temperature 97.2 F 97.5 F 97.4 F Pulse Rate 71 79 74 Respiratory Rate 18 18 17 Blood Pressure 122/75 135/69 112/70 Pulse Oximetry 97 96 94 Oxygen Delivery Method Room Air Room Air Room Air BMI result Body Mass Index 37.7 Labs 11/21/23 05:41 11/24/23 05:20 Labs: Laboratory Results - last 48 hr 11/23/23 11/23/23 11/24/23 05:37 10:52 05:20 Hold Purple Top SEE NOTE Sodium 136 Potassium 4.4 D Chloride 105 Carbon Dioxide 22 Anion Gap 13 BUN 5 L Creatinine 0.70 0.62 Estim Creat Clear Calc 144.8 163.4 Estimated GFR > 60 > 60 Random Glucose 93 Calcium 8.5 D Random Vancomycin 19.3 11/24/23 11:08 Hold Purple Top Sodium Potassium Chloride Carbon Dioxide Anion Gap BUN Creatinine Estim Creat Clear Calc Estimated GFR Random Glucose Calcium Random Vancomycin 17.3 Imaging Radiology Impressions: ITS Impressions Chest X-Ray 11/19/23 22:05 IMPRESSION: Minimal increased right basilar markings more likely due to atelectasis. Abdomen Ultrasound 11/19/23 23:00 IMPRESSION: 1. Hepatomegaly and hepatic steatosis. 2. Sludge in the gallbladder. No evidence of acute cholecystitis. Head CT 11/19/23 23:10 IMPRESSION: No acute intracranial pathology. Lumbar Spine CT 11/20/23 01:54 IMPRESSION: No acute findings identified in the lumbar spine. Given patient's symptoms, assessment for osteomyelitis or abscess would be better performed with pre and postcontrast MRI. Lumbar Spine MRI 11/20/23 12:52 IMPRESSION: Mild spondylosis at the L5-S1 level. Hypertrophic facet arthropathy at the L4-L5 level. No central canal stenosis or foraminal narrowing. Partially visualized posterior fusion hardware at the lower thoracic levels extending to the L1 level. No imaging findings suspicious for discitis/osteomyelitis. Medications Medications Current Medications Acetaminophen (Acetaminophen 325 Mg Tablet) 650 mg PO Q6H PRN PRN Reason: Fever >100.4 Last Admin: 11/20/23 21:35 Dose: 650 mg Acetaminophen (Acetaminophen 325 Mg Tablet) 650 mg PO Q6H PRN PRN Reason: Pain, Mild (Pain Scale 1-3) Last Admin: 11/23/23 09:05 Dose: 650 mg Bisacodyl (Bisacodyl 5 Mg Tablet.Dr) 10 mg PO DAILY REPLACED BY [facility] Last Admin: 11/24/23 13:38 Dose: 10 mg Gabapentin (Gabapentin 300 Mg Capsule) 300 mg PO BID REPLACED BY [facility] Last Admin: 11/24/23 09:02 Dose: 300 mg Gabapentin (Gabapentin 300 Mg Capsule) 300 mg PO DAILY PRN PRN Reason: Pain, Mild (Pain Scale 1-3) Last Admin: 11/23/23 12:53 Dose: 300 mg Hydromorphone HCl (Hydromorphone Hcl 0.5 Mg/0.5 Ml Syringe) 1 mg IVPUSH Q4H PRN; Protocol PRN Reason: Pain, Severe (Pain Scale 7-10) Last Admin: 11/20/23 21:35 Dose: 1 mg Vancomycin HCl 1,000 mg/ (Sodium Chloride) 270 mls @ 270 mls/hr IV Q8H REPLACED BY [facility] Last Infusion: 11/24/23 14:44 Dose: Infused Ibuprofen (Ibuprofen 600 Mg Tablet) 600 mg PO Q6H PRN PRN Reason: heel pain Last Admin: 11/23/23 14:49 Dose: 600 mg Lidocaine (Lidocaine 4 % Patch Adh..Patch) 2 patch TRANSDERMA DAILY REPLACED BY [facility]; Protocol Last Admin: 11/24/23 09:03 Dose: 2 patch Melatonin (Melatonin 3 Mg Tablet) 6 mg PO BEDTIME PRN PRN Reason: Insomnia Methadone HCl (Methadone Hcl 20 Mg/2 Ml Oral.Conc) 225 mg PO DAILY REPLACED BY [facility] Ondansetron HCl (Ondansetron Hcl 4 Mg/2 Ml Vial) 4 mg IVPUSH Q8H PRN PRN Reason: Nausea and Vomiting Last Admin: 11/20/23 04:30 Dose: 4 mg Oxycodone HCl (Oxycodone Hcl Immed Release 5 Mg Tablet) 5 mg PO Q4H PRN PRN Reason: Pain, Moderate(Pain Scale 4-6) Last Admin: 11/24/23 11:11 Dose: 5 mg Pharmacy Consult (Consult Rx Vancomycin Dosing) 1 each MISCELLANE DAILY PRN PRN Reason: Consult order Sodium Chloride (0.9 % Sodium Chloride Flush 3 Ml Syringe) 3 ml IVFLUSH QSHIFT REPLACED BY [facility] Last Admin: 11/24/23 09:02 Dose: 3 ml Allergies Allergies Allergy/AdvReac Type Severity Reaction Status Date / Time No Known Allergies Allergy Verified 11/19/23 20:55 Assessment & Plan Assessment & Plan (1) Opioid use disorder: Status: Acute Code(s): F11.90 - Opioid use, unspecified, uncomplicated Assessment and Plan: resume once daily dosing tomorrow morning (11/23) already connected to OTP in the community no further follow up indicated at this time Total time managing care of this patient today __15__ minutes.
--- NOTE | 2023-11-24 17:45 | P.PICC_ITS ---
PICC Line Insertion NPICC Diagnosis: Endocarditis Indication: [facility] ABT Pertinent Labs: reviewed Technique: Following informed consent including risks, benefits and alternatives and using sterile technique including cap and mask, sterile gown, glove and drape, the right arm was prepped and draped in the usual sterile fashion of full barrier technique with CHG. Following completion of [place] Protocol the skin and soft tissues were anesthetized with 1% Lidocaine plain. Using ultrasound guidance, right basilic vein access was obtained. Over an 0.018 wire through peel-away sheath, a 4fr single lumen PASV PICC line was positioned. Catheter length is 44cm internal length, 0cm external length, for a total trimmed length of 44cm. The procedure was performed in rm 272. Tip verification was performed by Estela Andrea with Sherlock 3CG. Tip located in SVC. Ultrasound was used to document vein patency and for needle entry. A formal ultrasound picture and cardiac rhythm strip was recorded. Despite sherlock 3cg confirmation patient reported i can feel that in my neck when catheter was flushed, but denied sensation with additional flush was performed. Gloria De Luna PA-C notified and CXR was performed [employer] has not released the line for use until CXR resulted and it is currently dressed with a StatLock, Tegaderm, and CHG disc. Verification has been performed for blood return and line patency. Arm Circumference: 34.5cm Equipment: [email or web address] PowerPICC SOLO catheter with Sherlock 3CG Tip Catheter Type: 4FR single lumen PASV power picc catheter Lot #: [id number]
[2023-11-24 18:13] VITALS: BP 134/84; PULSE 83; RESP 18; TEMP 36.3; O2SAT 96
--- NOTE | 2023-11-24 18:54 | PC.NURSE ---
Patient had a PICC line placed in right upper arm,intact,drsg CDI,was instructed not to use line until x-ray results available
[2023-11-24] MEDS: 0.9 % Sodium Chloride Flush 10 ML SYRINGE 5 ML IVFLUSH (19:51)
[2023-11-25] MEDS: 0.9 % Sodium Chloride Flush 3 ML SYRINGE IVFLUSH ×2 (01:05→08:27)
[2023-11-25 03:18] VITALS: BP 121/75; PULSE 78; RESP 16; TEMP 36.1; O2SAT 93
[2023-11-25 07:29] LABS: Creatinine Clr Calc Pharmacy 138.8; Estimated Glomerular Filt Rate > 60
[2023-11-25 07:47] VITALS: BP 127/76; PULSE 64; RESP 17; TEMP 36.6; O2SAT 93
[2023-11-25] MEDS: bisacodyL 5 MG TABLET.DR 10 MG PO (08:16)
[2023-11-25] MEDS: Gabapentin 300 MG CAPSULE PO ×2 (08:16→21:07)
[2023-11-25] MEDS: methADONE HCl 20 MG/2 ML ORAL.CONC 225 MG PO (08:17)
[2023-11-25] MEDS: 0.9 % Sodium Chloride Flush 10 ML SYRINGE 5 ML IVFLUSH ×3 (08:27→21:07)
[2023-11-25] MEDS: Lidocaine 4 % Patch ADH..PATCH 2 PATCH TRANSDERMA (09:00)
[2023-11-25 11:35] LABS: Vancomycin Random 4.5 mcg/mL (15-20)
--- NOTE | 2023-11-25 14:09 | MHC.CM.PN ---
PT HAS BEEN ACCEPTED AT [facility] FOR LT ABT RX. PT IS AGREEABLE TO THIS. GUEST DOSING PROCESS STARTED. TOMMY (PT'S CLINICIAN) AT [facility] UPDATED AND SHE SPOKE WITH PT FOR PERMISSION TO RELEASE INFORMATION TO [facility]. TOMMY STATES SHE HAS SENT THE NECESSARY PAPERWORK TO [facility]. PER [facility] LIAISON, [facility] WILL NOT TAKE NEW METHADONE PT ON A WEDNESDAY, WHICH WILL MEAN PT WILL GO TO [facility] Wednesday11/29/23. CM LEFT MESSAGE WITH [facility] TO INQUIRE IF ANY FURTHER PAPERWORK IS NEEDED. CM WILL CONTINUE TO FOLLOW. UPDATED.
--- NOTE | 2023-11-25 14:41 | HO.PM.IMPN ---
Subjective Subjective Date of Service: 11/25/23 Interval History: Seen and examined this morning Follow-up for Staph bacteremia, endocarditis No overnight events No specific complaints at time Review of Systems Review of Systems: Yes all other systems are reviewed and are negative Constitutional Constitutional: Denies chills and Denies fever(s) Physical Exam Vital Signs: Vital Signs: Last Vital Signs Temp 97.8 F 11/25/23 07:47 Pulse 64 11/25/23 07:47 Resp 17 11/25/23 07:47 BP 127/76 11/25/23 07:47 Pulse Ox 93 11/25/23 07:47 O2 Del Method Room Air 11/25/23 07:47 BMI result Body Mass Index 37.7 Const: Other: General-awake, alert, no acute distress, alert and oriented x3 Cardiovascular-regular rate and rhythm GI-abdomen soft, nontender, nondistended Pulmonary-lungs clear to auscultation, no respiratory distress Musculoskeletal patient is able to move all 4 extremities spontaneously Objective Data Active Medications Acetaminophen (Acetaminophen 325 Mg Tablet) 650 mg PO Q6H PRN PRN Reason: Fever >100.4 Last Admin: 11/20/23 21:35 Dose: 650 mg Documented By: PASHA Acetaminophen (Acetaminophen 325 Mg Tablet) 650 mg PO Q6H PRN PRN Reason: Pain, Mild (Pain Scale 1-3) Last Admin: 11/23/23 09:05 Dose: 650 mg Documented By: CARLENE Bisacodyl (Bisacodyl 5 Mg Tablet.) 10 mg PO DAILY [facility] Last Admin: 11/25/23 08:16 Dose: 10 mg Documented By: EILEEN Gabapentin (Gabapentin 300 Mg Capsule) 300 mg PO BID [facility] Last Admin: 11/25/23 08:16 Dose: 300 mg Documented By: EILEEN Gabapentin (Gabapentin 300 Mg Capsule) 300 mg PO DAILY PRN PRN Reason: Pain, Mild (Pain Scale 1-3) Last Admin: 11/23/23 12:53 Dose: 300 mg Documented By: CARLENE Hydromorphone HCl (Hydromorphone Hcl 0.5 Mg/0.5 Ml Syringe) 1 mg IVPUSH Q4H PRN; Protocol PRN Reason: Pain, Severe (Pain Scale 7-10) Last Admin: 11/20/23 21:35 Dose: 1 mg Documented By: PASHA Cefazolin Sodium 1 gm/ Sodium (Chloride) 50 mls @ 100 mls/hr IV Q8H [facility] Last Infusion: 11/25/23 08:47 Dose: Infused Documented By: EILEEN Ibuprofen (Ibuprofen 600 Mg Tablet) 600 mg PO Q6H PRN PRN Reason: heel pain Last Admin: 11/23/23 14:49 Dose: 600 mg Documented By: COTEMA Lidocaine (Lidocaine 4 % Patch Adh..Patch) 2 patch TRANSDERMA DAILY [facility]; Protocol Last Admin: 11/25/23 09:00 Dose: 2 patch Documented By: EILEEN Lorazepam (Lorazepam 1 Mg Tablet) 1 mg PO Q6H PRN PRN Reason: Anxiety Melatonin (Melatonin 3 Mg Tablet) 6 mg PO BEDTIME PRN PRN Reason: Insomnia Methadone HCl (Methadone Hcl 20 Mg/2 Ml Oral.Conc) 225 mg PO DAILY [facility] Last Admin: 11/25/23 08:17 Dose: 225 mg Documented By: EILEEN Ondansetron HCl (Ondansetron Hcl 4 Mg/2 Ml Vial) 4 mg IVPUSH Q8H PRN PRN Reason: Nausea and Vomiting Last Admin: 11/20/23 04:30 Dose: 4 mg Documented By: PAULO Sodium Chloride (0.9 % Sodium Chloride Flush 3 Ml Syringe) 3 ml IVFLUSH QSHIFT [facility] Last Admin: 11/25/23 08:27 Dose: 3 ml Documented By: EILEEN Sodium Chloride (0.9 % Sodium Chloride Flush 10 Ml Syringe) 5 ml IVFLUSH TID [facility] Last Admin: 11/25/23 08:27 Dose: 5 ml Documented By: EILEEN Labs 11/21/23 05:41 11/25/23 05:51 Labs: Laboratory Results - last 24 hr 11/25/23 11/25/23 05:51 11:02 Hold Purple Top SEE NOTE Estim Creat Clear Calc 138.8 Estimated GFR > 60 Random Vancomycin 4.5 L Assessment and Plan (1) Opioid use disorder: Status: Acute (2) Staphylococcus aureus bacteremia: Status: Acute Plan 38-year-old female with pertinent history of IV drug use disorder, chronic low back pain, s/p thoracic fusion admitted for sepsis with staph bacteremia and low back pain Staph aureus bacteremia and endocarditis. MRI lumbar spine w/wo negative for osteo, abscess, or discitis. Has thoracic nidai in place but no focal tenderness on exam, however can consider MR thoracic spine if indicated. Initially treated with IV vancomycin, changed to IV cefazolin November 23 Echo> mobile mass on the anterior tricuspid leaflet most suggestive of vegetation ID following> recommend 6 weeks of IV cefazolin repeat blood cx neg after 48 hrs PICC line placed November 23 Severe sepsis. Sepsis resolved Pt met severe sepsis criteria 11/18 at 2147 with fevers, tachycardia, thombocytopenia, and hyperbilirubinemia. ESR 88, CRP 17.07. PCT >3 Asymptomatic bacteriuria Urine culture negative. Diffuse myalgia. Resolved also with dark urine CPK normal s/p IVF Acute on chronic low back pain concern initially for spinal epidural abscess/discitis given IVDA. MRI lumbar spine w/wo negative for osteo, abscess, discitis ct lumbar spine unremarkable methadone, prn hydrocodone and oxycodone as above lidocaine patches Acute R achilles tendonitis. Resolved ice packs, ibuprofen prn given exercises to perform acute hypokalemia. Resolved repleted, follow lytes Polysubstance IV use disorder urine drug screen positive for cocaine, opiates, fentanyl, methadone Continue methadone addiction medicine following Acute thrombocytopenia due to infection as above Platelets stable Elevated LFTs likely r/t acute infection HIV and hep c ab neg normocytic anemia- suspect chronic h/h above transfusion threshold Acute hypocalcemia. Resolved likely dilutional from iv Obesity. BMI 37.7 Discussed importance of weight management as this may be contributing to worsening of other comorbidities DVT prophylaxis: Mechanical Attending Dr. Dowell Full code DISPO will need placement at [facility] or similar facility Pt requires ongoing inpt stay due to severe sepsis with gram positive bacteremia requiring iv abx, echo to evaluate for endocarditis and expert consulation Quality Stroke Does the patient have a stroke diagnosis?: No VTE Prior VTE?: No VTE Risk Level:: Medical - moderate - high VTE Device Contraindication: N/A - Device Ordered VTE Drug Contraindication: Treatment Not Indicated
[2023-11-25 15:31] VITALS: BP 108/65; PULSE 68; RESP 16; TEMP 36.6; O2SAT 94
[2023-11-25 19:56] VITALS: BP 111/70; PULSE 80; RESP 20; TEMP 36.2; O2SAT 97
[2023-11-25] MEDS: Acetaminophen 325 MG TABLET 650 MG PO (22:07)
[2023-11-26 03:48] VITALS: BP 116/76; PULSE 79; RESP 20; TEMP 36.3; O2SAT 94
[2023-11-26 06:56] LABS: Hematocrit 37.2 % (37.0-47.0); Hemoglobin 12.2 g/dl (12.0-16.0); Mean Corpuscular HGB Conc 32.8 g/dl (31.0-35.0); Mean Corpuscular Hemoglobin 30.4 pg (27.0-33.0); Mean Corpuscular Volume 92.8 fL (80.0-98.0); Mean Platelet Volume 11.6 fL (9.4-12.3); Red Blood Count 4.01 X10*6/uL (4.20-5.50); Red Cell Distribution Width 15.3 % (11.0-16.0); White Blood Count 4.8 X10*3/uL (4.8-10.8)
[2023-11-26 07:13] LABS: Platelet Count 254 X10*3/uL (160-400)
[2023-11-26 07:25] LABS: Alanine Aminotransferase 94 U/L (0-31); Albumin Level 3.1 g/dL (3.5-5.0); Alkaline Phosphatase 115 U/L (39-117); Aspartate Amino Transferase 96 U/L (5-31); Bilirubin Direct 0.4 mg/dL (0.0-0.5); Bilirubin Total 0.8 mg/dL (0.0-1.0); Creatinine Clr Calc Pharmacy 133.3; Estimated Glomerular Filt Rate > 60; Total Protein 7.9 g/dL (6.5-8.0)
[2023-11-26 07:44] VITALS: BP 101/66; PULSE 70; RESP 18; TEMP 36.6; O2SAT 95
[2023-11-26] MEDS: 0.9 % Sodium Chloride Flush 3 ML SYRINGE IVFLUSH (09:10)
[2023-11-26] MEDS: Gabapentin 300 MG CAPSULE PO ×2 (09:11→20:48)
[2023-11-26] MEDS: 0.9 % Sodium Chloride Flush 10 ML SYRINGE 5 ML IVFLUSH ×3 (09:11→20:48)
[2023-11-26] MEDS: methADONE HCl 20 MG/2 ML ORAL.CONC 225 MG PO (09:12)
--- NOTE | 2023-11-26 14:42 | MHC.CM.PN ---
per rounds pt will be here over the weekend as bed [facility]
[2023-11-26 15:08] VITALS: BP 105/63; PULSE 78; RESP 18; TEMP 36.6; O2SAT 96
--- NOTE | 2023-11-26 15:26 | P.PNIM_ITS ---
Subjective Subjective Date of Service: 11/26/23 Interval History: Seen and examined this morning Follow-up for bacteremia no overnight events No specific complaints this morning Review of Systems Review of Systems: Yes all other systems are reviewed and are negative Constitutional Constitutional: Denies fever(s) Physical Exam 2 Vital Signs: Vital Signs: Last Vital Signs Temp 98 F 11/26/23 15:08 Pulse 78 11/26/23 15:08 Resp 18 11/26/23 15:08 BP 105/63 11/26/23 15:08 Pulse Ox 96 11/26/23 15:08 O2 Del Method Room Air 11/26/23 15:08 BMI result Body Mass Index 37.7 Const: Other: General-awake, alert, no acute distress, alert and oriented x3 Cardiovascular-regular rate and rhythm GI-abdomen soft, nontender, nondistended Pulmonary-lungs clear to auscultation, no respiratory distress Musculoskeletal patient is able to move all 4 extremities spontaneously Objective Data Active Medications Acetaminophen (Acetaminophen 325 Mg Tablet) 650 mg PO Q6H PRN PRN Reason: Fever >100.4 Last Admin: 11/20/23 21:35 Dose: 650 mg Documented By: PASHA Acetaminophen (Acetaminophen 325 Mg Tablet) 650 mg PO Q6H PRN PRN Reason: Pain, Mild (Pain Scale 1-3) Last Admin: 11/25/23 22:07 Dose: 650 mg Documented By: ALMA Bisacodyl (Bisacodyl 5 Mg Tablet.) 10 mg PO DAILY [facility] Last Admin: 11/26/23 09:12 Dose: Not Given Documented By: KARLIE Non-Admin Reason: having BMs Gabapentin (Gabapentin 300 Mg Capsule) 300 mg PO BID [facility] Last Admin: 11/26/23 09:11 Dose: 300 mg Documented By: KARLIE Gabapentin (Gabapentin 300 Mg Capsule) 300 mg PO DAILY PRN PRN Reason: Pain, Mild (Pain Scale 1-3) Last Admin: 11/23/23 12:53 Dose: 300 mg Documented By: CARLENE Hydromorphone HCl (Hydromorphone Hcl 0.5 Mg/0.5 Ml Syringe) 1 mg IVPUSH Q4H PRN; Protocol PRN Reason: Pain, Severe (Pain Scale 7-10) Last Admin: 11/20/23 21:35 Dose: 1 mg Documented By: PASHA Cefazolin Sodium 1 gm/ Sodium (Chloride) 50 mls @ 100 mls/hr IV Q8H [facility] Last Infusion: 11/26/23 10:00 Dose: Infused Documented By: KARLIE Ibuprofen (Ibuprofen 600 Mg Tablet) 600 mg PO Q6H PRN PRN Reason: heel pain Last Admin: 11/23/23 14:49 Dose: 600 mg Documented By: COTEMA Lidocaine (Lidocaine 4 % Patch Adh..Patch) 2 patch TRANSDERMA DAILY [facility]; Protocol Last Admin: 11/26/23 09:13 Dose: Not Given Documented By: KALRIE Non-Admin Reason: Patient Refused Lorazepam (Lorazepam 1 Mg Tablet) 1 mg PO Q6H PRN PRN Reason: Anxiety Melatonin (Melatonin 3 Mg Tablet) 6 mg PO BEDTIME PRN PRN Reason: Insomnia Methadone HCl (Methadone Hcl 20 Mg/2 Ml Oral.Conc) 225 mg PO DAILY [facility] Last Admin: 11/26/23 09:12 Dose: 225 mg Documented By: KARLIE Ondansetron HCl (Ondansetron Hcl 4 Mg/2 Ml Vial) 4 mg IVPUSH Q8H PRN PRN Reason: Nausea and Vomiting Last Admin: 11/20/23 04:30 Dose: 4 mg Documented By: PAULO Sodium Chloride (0.9 % Sodium Chloride Flush 3 Ml Syringe) 3 ml IVFLUSH QSHIFT [facility] Last Admin: 11/26/23 14:10 Dose: Not Given Documented By: KARLIE Non-Admin Reason: Duplicate Order Sodium Chloride (0.9 % Sodium Chloride Flush 10 Ml Syringe) 5 ml IVFLUSH TID [facility] Last Admin: 11/26/23 09:11 Dose: 5 ml Documented By: KARLIE Labs 11/26/23 05:56 11/26/23 05:56 Labs: Laboratory Results - last 24 hr 11/26/23 05:56 MCV 92.8 MCH 30.4 MCHC 32.8 RDW 15.3 Plt Count 254 D MPV 11.6 Absolute Nucleated RBC 0.000 Nucleated RBC % (auto) 0.0 Estim Creat Clear Calc 133.3 Estimated GFR > 60 Total Bilirubin 0.8 Direct Bilirubin 0.4 AST 96 H ALT 94 H Alkaline Phosphatase 115 Total Protein 7.9 Albumin 3.1 L Microbiology Microbiology Results: Microbiology 11/21/23 08:10 Blood Culture - Final Blood - Venous No growth after 5 days. 11/21/23 08:30 Blood Culture - Final Blood - Venous No growth after 5 days. Assessment and Plan (1) Staphylococcus aureus bacteremia: Status: Acute (2) Opioid use disorder: Status: Acute Plan 38-year-old female with pertinent history of IV drug use disorder, chronic low back pain, s/p thoracic fusion admitted for sepsis with staph bacteremia and low back pain Staph aureus bacteremia and endocarditis. MRI lumbar spine w/wo negative for osteo, abscess, or discitis. Has thoracic nidia in place but no focal tenderness on exam, however can consider MR thoracic spine if indicated. Initially treated with IV vancomycin, changed to IV cefazolin November 23 Echo> mobile mass on the anterior tricuspid leaflet most suggestive of vegetation ID following> recommend 6 weeks of IV cefazolin repeat blood cx neg after 48 hrs PICC line placed November 23 Severe sepsis. Sepsis resolved Pt met severe sepsis criteria 11/18 at 2147 with fevers, tachycardia, thombocytopenia, and hyperbilirubinemia. ESR 88, CRP 17.07. PCT >3 Asymptomatic bacteriuria Urine culture negative. Diffuse myalgia. Resolved also with dark urine CPK normal s/p IVF Acute on chronic low back pain concern initially for spinal epidural abscess/discitis given IVDA. MRI lumbar spine w/wo negative for osteo, abscess, discitis ct lumbar spine unremarkable methadone, prn hydrocodone and oxycodone as above lidocaine patches Acute R achilles tendonitis. Resolved ice packs, ibuprofen prn given exercises to perform acute hypokalemia. Resolved Polysubstance IV use disorder urine drug screen positive for cocaine, opiates, fentanyl, methadone Continue methadone addiction medicine following Acute thrombocytopenia due to infection as above resolved Elevated LFTs likely r/t acute infection HIV and hep c ab neg LFTs trending down normocytic anemia- suspect chronic h/h above transfusion threshold Acute hypocalcemia. Resolved likely dilutional from iv Obesity. BMI 37.7 Discussed importance of weight management as this may be contributing to worsening of other comorbidities DVT prophylaxis: Mechanical Attending Dr. Dowell Full code DISPO will need placement at [facility] on Wednesday Pt requires ongoing inpt stay due to severe sepsis with gram positive bacteremia requiring iv abx, echo to evaluate for endocarditis safe disposition Quality Stroke Does the patient have a stroke diagnosis?: No VTE Prior VTE?: No VTE Risk Level:: Medical - moderate - high VTE Device Contraindication: N/A - Device Ordered VTE Drug Contraindication: Treatment Not Indicated
[2023-11-26 19:21] VITALS: BP 98/55; PULSE 84; RESP 16; TEMP 36.6; O2SAT 97
[2023-11-27 03:23] VITALS: BP 105/64; PULSE 90; RESP 16; TEMP 36.2; O2SAT 93
[2023-11-27 05:59] LABS: Creatinine Clr Calc Pharmacy 129.9; Estimated Glomerular Filt Rate > 60
[2023-11-27 07:38] VITALS: BP 102/60; PULSE 76; RESP 16; TEMP 36.8; O2SAT 93
[2023-11-27] MEDS: Gabapentin 300 MG CAPSULE PO ×2 (09:17→20:13)
[2023-11-27] MEDS: 0.9 % Sodium Chloride Flush 10 ML SYRINGE 5 ML IVFLUSH ×3 (09:18→20:16)
[2023-11-27] MEDS: 0.9 % Sodium Chloride Flush 3 ML SYRINGE IVFLUSH ×2 (09:18→17:04)
[2023-11-27] MEDS: methADONE HCl 20 MG/2 ML ORAL.CONC 225 MG PO (09:53)
[2023-11-27 15:04] VITALS: BP 108/65; PULSE 85; RESP 88; TEMP 36.7; O2SAT 95
--- NOTE | 2023-11-27 17:02 | HO.PM.IMPN ---
Subjective Subjective Date of Service: 11/27/23 Interval History: Seen and examined this morning Follow-up for bacteremia/endocarditis No overnight events No specific complaints Review of Systems Review of Systems: Yes all other systems are reviewed and are negative Constitutional Constitutional: Denies chills and Denies fever(s) Cardiovascular Cardiovascular: Denies chest pain Physical Exam Vital Signs: Vital Signs: Last Vital Signs Temp 98.1 F 11/27/23 15:04 Pulse 85 11/27/23 15:04 Resp 88 H 11/27/23 15:04 BP 108/65 11/27/23 15:04 Pulse Ox 95 11/27/23 15:04 O2 Del Method Room Air 11/27/23 15:04 BMI result Body Mass Index 37.7 Const: Other: General-awake, alert, no acute distress, alert and oriented x3 Cardiovascular-regular rate and rhythm GI-abdomen soft, nontender, nondistended Pulmonary-lungs clear to auscultation, no respiratory distress Musculoskeletal patient is able to move all 4 extremities spontaneously Skin: Other: RUE line in place no surrounding erythema Objective Data Active Medications Acetaminophen (Acetaminophen 325 Mg Tablet) 650 mg PO Q6H PRN PRN Reason: Fever >100.4 Last Admin: 11/20/23 21:35 Dose: 650 mg Documented By: PASHA Acetaminophen (Acetaminophen 325 Mg Tablet) 650 mg PO Q6H PRN PRN Reason: Pain, Mild (Pain Scale 1-3) Last Admin: 11/25/23 22:07 Dose: 650 mg Documented By: ALMA Bisacodyl (Bisacodyl 5 Mg Tablet.) 10 mg PO DAILY [facility] Last Admin: 11/27/23 09:17 Dose: Not Given Documented By: DIMPLE Non-Admin Reason: Patient Refused Gabapentin (Gabapentin 300 Mg Capsule) 300 mg PO BID [facility] Last Admin: 11/27/23 09:17 Dose: 300 mg Documented By: DIMPLE Gabapentin (Gabapentin 300 Mg Capsule) 300 mg PO DAILY PRN PRN Reason: Pain, Mild (Pain Scale 1-3) Last Admin: 11/23/23 12:53 Dose: 300 mg Documented By: CARLENE Hydromorphone HCl (Hydromorphone Hcl 0.5 Mg/0.5 Ml Syringe) 1 mg IVPUSH Q4H PRN; Protocol PRN Reason: Pain, Severe (Pain Scale 7-10) Last Admin: 11/20/23 21:35 Dose: 1 mg Documented By: PASHA Cefazolin Sodium 1 gm/ Sodium (Chloride) 50 mls @ 100 mls/hr IV Q8H [facility] Last Infusion: 11/27/23 09:48 Dose: Infused Documented By: DIMPLE Ibuprofen (Ibuprofen 600 Mg Tablet) 600 mg PO Q6H PRN PRN Reason: heel pain Last Admin: 11/23/23 14:49 Dose: 600 mg Documented By: COTEMA Lidocaine (Lidocaine 4 % Patch Adh..Patch) 2 patch TRANSDERMA DAILY [facility]; Protocol Last Admin: 11/27/23 09:19 Dose: Not Given Documented By: DIMPLE Non-Admin Reason: Patient Refused Lorazepam (Lorazepam 1 Mg Tablet) 1 mg PO Q6H PRN PRN Reason: Anxiety Melatonin (Melatonin 3 Mg Tablet) 6 mg PO BEDTIME PRN PRN Reason: Insomnia Methadone HCl (Methadone Hcl 20 Mg/2 Ml Oral.Conc) 225 mg PO DAILY [facility] Last Admin: 11/27/23 09:53 Dose: 225 mg Documented By: DIMPLE Ondansetron HCl (Ondansetron Hcl 4 Mg/2 Ml Vial) 4 mg IVPUSH Q8H PRN PRN Reason: Nausea and Vomiting Last Admin: 11/20/23 04:30 Dose: 4 mg Documented By: PAULO Sodium Chloride (0.9 % Sodium Chloride Flush 3 Ml Syringe) 3 ml IVFLUSH QSHIFT [facility] Last Admin: 11/27/23 09:18 Dose: 3 ml Documented By: DIMPLE Sodium Chloride (0.9 % Sodium Chloride Flush 10 Ml Syringe) 5 ml IVFLUSH TID [facility] Last Admin: 11/27/23 14:24 Dose: 5 ml Documented By: DIMPLE Labs 11/26/23 05:56 11/27/23 05:15 Labs: Laboratory Results - last 24 hr 11/27/23 05:15 Hold Purple Top SEE NOTE Estim Creat Clear Calc 129.9 Estimated GFR > 60 Assessment and Plan (1) Staphylococcus aureus bacteremia: Status: Acute Plan 38-year-old female with pertinent history of IV drug use disorder, chronic low back pain, s/p thoracic fusion admitted for sepsis with staph bacteremia and low back pain Staph aureus bacteremia and endocarditis. MRI lumbar spine w/wo negative for osteo, abscess, or discitis. Has thoracic nidia in place but no focal tenderness on exam, however can consider MR thoracic spine if indicated. Initially treated with IV vancomycin, changed to IV cefazolin November 23 Echo> mobile mass on the anterior tricuspid leaflet most suggestive of vegetation ID following> recommend 6 weeks of IV cefazolin repeat blood cx neg after 48 hrs PICC line placed November 23 Severe sepsis. Sepsis resolved Pt met severe sepsis criteria 11/18 at 2147 with fevers, tachycardia, thombocytopenia, and hyperbilirubinemia. ESR 88, CRP 17.07. PCT >3 Asymptomatic bacteriuria Urine culture negative. Diffuse myalgia. Resolved also with dark urine CPK normal s/p IVF Acute on chronic low back pain concern initially for spinal epidural abscess/discitis given IVDA. MRI lumbar spine w/wo negative for osteo, abscess, discitis ct lumbar spine unremarkable methadone, prn hydrocodone and oxycodone as above lidocaine patches Acute R achilles tendonitis. Resolved ice packs, ibuprofen prn given exercises to perform acute hypokalemia. Resolved Polysubstance IV use disorder urine drug screen positive for cocaine, opiates, fentanyl, methadone Continue methadone addiction medicine following Acute thrombocytopenia due to infection as above resolved Elevated LFTs likely r/t acute infection HIV and hep c ab neg LFTs trending down normocytic anemia- suspect chronic h/h above transfusion threshold Acute hypocalcemia. Resolved likely dilutional from iv Obesity. BMI 37.7 Discussed importance of weight management as this may be contributing to worsening of other comorbidities DVT prophylaxis: Mechanical Full code DISPO will need placement at [facility] on Wednesday Pt requires ongoing inpt stay due to severe sepsis with gram positive bacteremia requiring iv abx, safe disposition Quality Stroke Does the patient have a stroke diagnosis?: No VTE Prior VTE?: No VTE Risk Level:: Medical - moderate - high VTE Device Contraindication: N/A - Device Ordered VTE Drug Contraindication: Treatment Not Indicated
[2023-11-27 20:00] VITALS: BP 111/70; PULSE 85; RESP 16; TEMP 36.2; O2SAT 96
[2023-11-28 04:00] VITALS: BP 110/61; PULSE 84; RESP 16; TEMP 36.1; O2SAT 94
[2023-11-28 06:33] LABS: Creatinine Clr Calc Pharmacy 113.8; Estimated Glomerular Filt Rate > 60
[2023-11-28 07:06] VITALS: BP 101/65; PULSE 93; RESP 16; TEMP 36.8; O2SAT 93
[2023-11-28] MEDS: Gabapentin 300 MG CAPSULE PO ×2 (09:03→20:17)
[2023-11-28] MEDS: methADONE HCl 20 MG/2 ML ORAL.CONC 225 MG PO (09:04)
[2023-11-28] MEDS: 0.9 % Sodium Chloride Flush 10 ML SYRINGE 5 ML IVFLUSH ×3 (09:05→20:17)
[2023-11-28] MEDS: 0.9 % Sodium Chloride Flush 3 ML SYRINGE IVFLUSH ×2 (09:05→15:13)
[2023-11-28] MEDS: HYDROmorphone HCl 0.5 MG/0.5 ML SYRINGE 1 MG IVPUSH (09:17)
--- NOTE | 2023-11-28 12:01 | HO.PM.IMPN ---
Subjective Subjective Date of Service: 11/28/23 Interval History: seen and examined this morning follow up for bacteremia No overnight events, no specific complaints Review of Systems Review of Systems: Yes all other systems are reviewed and are negative Constitutional Constitutional: Denies chills and Denies fever(s) Cardiovascular Cardiovascular: Denies chest pain and Denies dyspnea Respiratory Respiratory: Denies cough and Denies dyspnea Gastrointestinal Gastrointestinal: Denies abdominal pain Physical Exam Vital Signs: Vital Signs: Last Vital Signs Temp 98.2 F 11/28/23 07:06 Pulse 93 11/28/23 07:06 Resp 16 11/28/23 07:06 BP 101/65 11/28/23 07:06 Pulse Ox 93 11/28/23 07:06 O2 Del Method Room Air 11/28/23 07:06 BMI result Body Mass Index 37.7 Const: Other: General-awake, alert, no acute distress, alert and oriented x3 Cardiovascular-regular rate and rhythm GI-abdomen soft, nontender, nondistended Pulmonary-lungs clear to auscultation, no respiratory distress Musculoskeletal patient is able to move all 4 extremities spontaneously Skin: Other: RUE line in place no surrounding erythema Objective Data Active Medications Acetaminophen (Acetaminophen 325 Mg Tablet) 650 mg PO Q6H PRN PRN Reason: Fever >100.4 Last Admin: 11/20/23 21:35 Dose: 650 mg Documented By: PASHA Acetaminophen (Acetaminophen 325 Mg Tablet) 650 mg PO Q6H PRN PRN Reason: Pain, Mild (Pain Scale 1-3) Last Admin: 11/25/23 22:07 Dose: 650 mg Documented By: ALMA Bisacodyl (Bisacodyl 5 Mg Tablet.Dr) 10 mg PO DAILY [facility] Last Admin: 11/28/23 09:05 Dose: Not Given Documented By: DIMPLE Non-Admin Reason: Patient Refused Gabapentin (Gabapentin 300 Mg Capsule) 300 mg PO BID [facility] Last Admin: 11/28/23 09:03 Dose: 300 mg Documented By: DIMPLE Gabapentin (Gabapentin 300 Mg Capsule) 300 mg PO DAILY PRN PRN Reason: Pain, Mild (Pain Scale 1-3) Last Admin: 11/23/23 12:53 Dose: 300 mg Documented By: CARLENE Hydromorphone HCl (Hydromorphone Hcl 0.5 Mg/0.5 Ml Syringe) 1 mg IVPUSH Q4H PRN; Protocol PRN Reason: Pain, Severe (Pain Scale 7-10) Last Admin: 11/28/23 09:17 Dose: 1 mg Documented By: DIMPLE Cefazolin Sodium 1 gm/ Sodium (Chloride) 50 mls @ 100 mls/hr IV Q8H [facility] Last Infusion: 11/28/23 09:35 Dose: Infused Documented By: DIMPLE Ibuprofen (Ibuprofen 600 Mg Tablet) 600 mg PO Q6H PRN PRN Reason: heel pain Last Admin: 11/23/23 14:49 Dose: 600 mg Documented By: COTEMA Lidocaine (Lidocaine 4 % Patch Adh..Patch) 2 patch TRANSDERMA DAILY [facility]; Protocol Last Admin: 11/28/23 09:05 Dose: Not Given Documented By: DIMPLE Non-Admin Reason: Patient Refused Lorazepam (Lorazepam 1 Mg Tablet) 1 mg PO Q6H PRN PRN Reason: Anxiety Melatonin (Melatonin 3 Mg Tablet) 6 mg PO BEDTIME PRN PRN Reason: Insomnia Methadone HCl (Methadone Hcl 20 Mg/2 Ml Oral.Conc) 225 mg PO DAILY [facility] Last Admin: 11/28/23 09:04 Dose: 225 mg Documented By: DIMPLE Ondansetron HCl (Ondansetron Hcl 4 Mg/2 Ml Vial) 4 mg IVPUSH Q8H PRN PRN Reason: Nausea and Vomiting Last Admin: 11/20/23 04:30 Dose: 4 mg Documented By: PAULO Sodium Chloride (0.9 % Sodium Chloride Flush 3 Ml Syringe) 3 ml IVFLUSH QSHIFT [facility] Last Admin: 11/28/23 09:05 Dose: 3 ml Documented By: DIMPLE Sodium Chloride (0.9 % Sodium Chloride Flush 10 Ml Syringe) 5 ml IVFLUSH TID [facility] Last Admin: 11/28/23 09:05 Dose: 5 ml Documented By: DIMPLE Labs 11/26/23 05:56 11/28/23 05:45 Labs: Laboratory Results - last 24 hr 11/28/23 05:45 Hold Purple Top SEE NOTE Estim Creat Clear Calc 113.8 Estimated GFR > 60 Assessment and Plan (1) Staphylococcus aureus bacteremia: Status: Acute Plan 38-year-old female with pertinent history of IV drug use disorder, chronic low back pain, s/p thoracic fusion admitted for sepsis with staph bacteremia and low back pain Staph aureus bacteremia and endocarditis. MRI lumbar spine w/wo negative for osteo, abscess, or discitis. Has thoracic nidia in place but no focal tenderness on exam, however can consider MR thoracic spine if indicated. Initially treated with IV vancomycin, changed to IV cefazolin November 23 Echo> mobile mass on the anterior tricuspid leaflet most suggestive of vegetation ID following> recommend 6 weeks of IV cefazolin repeat blood cx neg after 48 hrs PICC line placed November 23 Severe sepsis. Sepsis resolved Pt met severe sepsis criteria 11/18 at 2147 with fevers, tachycardia, thombocytopenia, and hyperbilirubinemia. ESR 88, CRP 17.07. PCT >3 Asymptomatic bacteriuria Urine culture negative. Diffuse myalgia. Resolved CPK normal s/p IVF Acute on chronic low back pain concern initially for spinal epidural abscess/discitis given IVDA. MRI lumbar spine w/wo negative for osteo, abscess, discitis ct lumbar spine unremarkable methadone, prn hydrocodone and oxycodone as above lidocaine patches Acute R achilles tendonitis. Resolved ice packs, ibuprofen prn given exercises to perform acute hypokalemia. Resolved Polysubstance IV use disorder urine drug screen positive for cocaine, opiates, fentanyl, methadone Continue methadone addiction medicine following Acute thrombocytopenia due to infection as above resolved Elevated LFTs likely r/t acute infection HIV and hep c ab neg LFTs trending down normocytic anemia- suspect chronic h/h above transfusion threshold Acute hypocalcemia. Resolved likely dilutional from iv Obesity. BMI 37.7 Discussed importance of weight management as this may be contributing to worsening of other comorbidities DVT prophylaxis: Mechanical Full code DISPO will need placement at [facility] on Wednesday Pt requires ongoing inpt stay due to severe sepsis with gram positive bacteremia requiring iv abx, safe disposition Quality Stroke Does the patient have a stroke diagnosis?: No VTE Prior VTE?: No VTE Risk Level:: Medical - moderate - high VTE Device Contraindication: N/A - Device Ordered VTE Drug Contraindication: Treatment Not Indicated
[2023-11-28 15:20] VITALS: BP 108/67; PULSE 86; RESP 18; TEMP 36.6; O2SAT 94
[2023-11-28 19:30] VITALS: BP 109/65; PULSE 85; RESP 18; TEMP 36.1; O2SAT 94
[2023-11-29 03:30] VITALS: BP 114/63; PULSE 78; RESP 16; TEMP 36.1; O2SAT 93
[2023-11-29 07:32] VITALS: BP 109/68; PULSE 89; RESP 18; TEMP 36; O2SAT 95
[2023-11-29] MEDS: Gabapentin 300 MG CAPSULE PO (08:01)
[2023-11-29] MEDS: Lidocaine 4 % Patch ADH..PATCH 2 PATCH TRANSDERMA (08:01)
[2023-11-29] MEDS: methADONE HCl 20 MG/2 ML ORAL.CONC 225 MG PO (08:03)
[2023-11-29] MEDS: 0.9 % Sodium Chloride Flush 10 ML SYRINGE 5 ML IVFLUSH ×2 (08:12→14:08)
[2023-11-29 08:46] LABS: Creatinine Clr Calc Pharmacy 122.1; Estimated Glomerular Filt Rate > 60
--- NOTE | 2023-11-29 12:55 | P.DS_ITS ---
DS: Providers Provider Date of Service: 11/29/23 Date of admission: 11/20/23 01:43 Primary care physician: Judith Mendosa NP Consults: 11/20/23 01:31 Addiction Medicine Routine Consulting Provider: Addiction Covering Reason for consultation: polususbstance use disorder 11/20/23 12:36 Consult to Infectious Diseases Routine Consulting Provider: [facility] Infectious Disease Reason for consultation: GPC bacteremia, ivda DS: Diagnosis Discharge Diagnosis (1) Staphylococcus aureus bacteremia: Status: Acute DS: Summary Hospital Course Hospital Course: History and physical as per admitting provider. This is a 38-year-old female with pertinent history of IV drug use disorder who presents to the emergency department for evaluation of fever, chills. Patient states her symptoms started 5 days prior to presentation. Patient has been having multiple complaints including fever, chills, headache, nausea, nonbloody emesis, poor p.o. intake, weakness. States she feels sick. Also has been having runny nose and cough. Admits to using IV drugs but denies infections in the past. Is not on any prescription medications. States her family is sick with viral infections. Patient is also complaining of lower back pain that started 5 days ago, is constant and is without any relieving factors. No neck rigidity. No chest pain, palpitations, shortness of breath, changes in urinary or bowel habits. In the emergency department, CT head, CT lumbar spine, abdominal ultrasound and chest x-ray without any acute abnormalities. Patient was found to be febrile and tachycardic 38-year-old woman with staph bacteremia and endocarditis secondary to polysubstance abuse with IV street drugs. Patient only she started on IV vancomycin but transition to cefazolin on November 23. She had a PICC line placed on November 23 and plan is for 6 weeks of IV cefazolin. Her echocardiogram showed mobile mass on the anterior tricuspid leaflet most suggestive of vegetation. She did have some complaints of back pain with concern for spinal abscess but MRI was negative for osteomyelitis, abscess or diskitis. She was found to have severe sepsis initially with tachycardia, thrombocytopenia and hyperbilirubinemia. Abscesses resolved after treatment initiated. Patient this point is hemodynamically stable plan is to discharge to rehabilitation facility to complete her antibiotic treatment. Last dose of cefazolin 01/05/2004, RN may remove PICC line after last dose of antibiotics. Right Achilles tendonitis. Treated with ice packs and ibuprofen Acute hypokalemia. Resolved with repletion Polysubstance abuse. Seen and evaluated by addiction medicine. Continue methadone 225 mg daily last dose 11/29/2023 at 08:03 Acute thrombocytopenia. Secondary to infection. Resolved Elevated LFTs. Likely secondary to bacteremia. HIV and hepatitis-C negative Normocytic anemia. Chronic. Above transfusion threshold during hospitalization Hypocalcemia. Likely dilutional from IV fluids Obesity. BMI 37.7. Discussed importance of weight management as this may be contributing to worsening of other comorbidities Less than 30 day stay Time Attestation Discharge Coordination Time (in mins): 45 Quality: Safe Use of Opioids Does Pt have an Active Cancer Diagnosis on the Problem List?: No Quality: Stroke Does the patient have a stroke diagnosis?: No Physical Exam Vital Signs: Vital Signs: Last Vital Signs Temp 96.8 F 11/29/23 07:32 Pulse 89 11/29/23 07:32 Resp 18 11/29/23 07:32 BP 109/68 11/29/23 07:32 Pulse Ox 95 11/29/23 07:32 O2 Del Method Room Air 11/29/23 07:32 BMI result Body Mass Index 37.7 Appearing in no acute distress head is normocephalic atraumatic eyes pupils are PERRLA sclera is anicteric mouth throat mucous membranes are intact and moist neck is supple no lymphadenopathy, no JVD noted lung sounds are clear to auscultation heart regular rate rhythm, clear S1, S2 positive bowel sounds, abdomen is soft, nontender neuro patient is alert x3, no focal deficits DS: Data Data Completed and Pending Labs on day of discharge: Laboratory Results - last 24 hr 11/29/23 08:10 Creatinine 0.83 Estim Creat Clear Calc 122.1 Estimated GFR > 60 Discharge Plan Discharge Anticipated Discharge Date/Time: 11/29/23 12:31 Patient Disposition: Xfer Inpatient Rehab Fac Discharge Diagnosis: Staph aureus bacteremia Endocarditis Severe sepsis Referrals: [facility] [Outside] - 1 Week Judith Mendosa NP [Primary Care Provider] - 1 Week Discharge Medications: New cefazolin 1 gram Recon Soln 1 g IV Q8H Qty: 25 0RF Continued methadone 10 mg/5 mL Solution 226 mg PO DAILY Patient Comments: was given 1/2 dose 11/19/23 at [facility] per patient gabapentin 300 mg capsule 300 mg PO BID-TID Discharge Orders: Discharge Order (Routine); Ordered 11/29/23 Ordered By: Abbie Ozuna Diet: Advance to usual diet Activity on Discharge: As tolerated Stand Alone Forms: Patient Portal Discharge page Print Language: Maori Care Plan Goals: Complete total of 6 weeks of IV antibiotics, and date January 05, 2024 RN may remove PICC line after last dose As methadone dose 11/29/23, 225 mg at 08:03 Health Concerns: Staph aureus bacteremia Endocarditis Severe sepsis Plan of Treatment: Follow-up with primary care provider as needed Take all medications as prescribed Assessment: See discharge summary
[2023-11-29 15:20] VITALS: BP 109/72; PULSE 92; RESP 12; TEMP 36.2; O2SAT 96
--- NOTE | 2023-11-29 16:06 | MHC.CM.PN ---
Patient is discharged today to [facility]. She will receive IV ABX via PICC. Methadone guest dosing has been set up with [facility]. BLS transport is booked for 5pm pick up man. DC info has been sent to the facility.
--- NOTE | 2023-11-29 17:00 | P.PNIM_ITS ---
Subjective Subjective Date of Service: 11/29/23 Interval History: seen and examined this morning follow up for bacteremia No overnight events, no specific complaints Review of Systems Review of Systems: Yes all other systems are reviewed and are negative Constitutional Constitutional: Denies chills and Denies fever(s) Cardiovascular Cardiovascular: Denies chest pain and Denies dyspnea Respiratory Respiratory: Denies cough and Denies dyspnea Gastrointestinal Gastrointestinal: Denies abdominal pain Physical Exam 2 Vital Signs: Vital Signs: Last Vital Signs Temp 97.1 F 11/29/23 15:20 Pulse 92 11/29/23 15:20 Resp 12 11/29/23 15:20 BP 109/72 11/29/23 15:20 Pulse Ox 96 11/29/23 15:20 O2 Del Method Room Air 11/29/23 15:20 BMI result Body Mass Index 37.7 Appearing in no acute distress lung sounds are clear to auscultation heart regular rate rhythm, clear S1, S2 positive bowel sounds, abdomen is soft, nontender neuro patient is alert x3, no focal deficits Objective Data Active Medications Acetaminophen (Acetaminophen 325 Mg Tablet) 650 mg PO Q6H PRN PRN Reason: Fever >100.4 Last Admin: 11/20/23 21:35 Dose: 650 mg Documented By: PASHA Acetaminophen (Acetaminophen 325 Mg Tablet) 650 mg PO Q6H PRN PRN Reason: Pain, Mild (Pain Scale 1-3) Last Admin: 11/25/23 22:07 Dose: 650 mg Documented By: ALMA Bisacodyl (Bisacodyl 5 Mg Tablet.) 10 mg PO DAILY [facility] Last Admin: 11/29/23 08:01 Dose: Not Given Documented By: LUKAS Non-Admin Reason: Patient Refused Gabapentin (Gabapentin 300 Mg Capsule) 300 mg PO BID [facility] Last Admin: 11/29/23 08:01 Dose: 300 mg Documented By: LUKAS Gabapentin (Gabapentin 300 Mg Capsule) 300 mg PO DAILY PRN PRN Reason: Pain, Mild (Pain Scale 1-3) Last Admin: 11/23/23 12:53 Dose: 300 mg Documented By: COTEMA Hydromorphone HCl (Hydromorphone Hcl 0.5 Mg/0.5 Ml Syringe) 1 mg IVPUSH Q4H PRN; Protocol PRN Reason: Pain, Severe (Pain Scale 7-10) Last Admin: 11/28/23 09:17 Dose: 1 mg Documented By: DIMPLE Cefazolin Sodium 1 gm/ Sodium (Chloride) 50 mls @ 100 mls/hr IV Q8H [facility] Last Infusion: 11/29/23 16:48 Dose: Infused Documented By: LUKAS Ibuprofen (Ibuprofen 600 Mg Tablet) 600 mg PO Q6H PRN PRN Reason: heel pain Last Admin: 11/23/23 14:49 Dose: 600 mg Documented By: COTEMA Lidocaine (Lidocaine 4 % Patch Adh..Patch) 2 patch TRANSDERMA DAILY [facility]; Protocol Last Admin: 11/29/23 08:01 Dose: 2 patch Documented By: LUKAS Lorazepam (Lorazepam 1 Mg Tablet) 1 mg PO Q6H PRN PRN Reason: Anxiety Melatonin (Melatonin 3 Mg Tablet) 6 mg PO BEDTIME PRN PRN Reason: Insomnia Methadone HCl (Methadone Hcl 20 Mg/2 Ml Oral.Conc) 225 mg PO DAILY [facility] Last Admin: 11/29/23 08:03 Dose: 225 mg Documented By: LUKAS Ondansetron HCl (Ondansetron Hcl 4 Mg/2 Ml Vial) 4 mg IVPUSH Q8H PRN PRN Reason: Nausea and Vomiting Last Admin: 11/20/23 04:30 Dose: 4 mg Documented By: PAULO Sodium Chloride (0.9 % Sodium Chloride Flush 3 Ml Syringe) 3 ml IVFLUSH QSHIFT [facility] Last Admin: 11/29/23 07:49 Dose: Not Given Documented By: LUKAS Non-Admin Reason: Duplicate Order Sodium Chloride (0.9 % Sodium Chloride Flush 10 Ml Syringe) 5 ml IVFLUSH TID [facility] Last Admin: 11/29/23 14:08 Dose: 5 ml Documented By: LUKAS Labs 11/26/23 05:56 11/29/23 08:10 Labs: Laboratory Results - last 24 hr 11/29/23 08:10 Estim Creat Clear Calc 122.1 Estimated GFR > 60 Assessment and Plan (1) Staphylococcus aureus bacteremia: Status: Acute Plan 38-year-old female with pertinent history of IV drug use disorder, chronic low back pain, s/p thoracic fusion admitted for sepsis with staph bacteremia and low back pain Staph aureus bacteremia and endocarditis. MRI lumbar spine w/wo negative for osteo, abscess, or discitis. Has thoracic nidia in place but no focal tenderness on exam, however can consider MR thoracic spine if indicated. Initially treated with IV vancomycin, changed to IV cefazolin November 23 Echo> mobile mass on the anterior tricuspid leaflet most suggestive of vegetation ID following> recommend 6 weeks of IV cefazolin repeat blood cx neg after 48 hrs PICC line placed November 23 Severe sepsis. Sepsis resolved Pt met severe sepsis criteria 11/18 at 2147 with fevers, tachycardia, thombocytopenia, and hyperbilirubinemia. ESR 88, CRP 17.07. PCT >3 Asymptomatic bacteriuria Urine culture negative. Diffuse myalgia. Resolved CPK normal s/p IVF Acute on chronic low back pain concern initially for spinal epidural abscess/discitis given IVDA. MRI lumbar spine w/wo negative for osteo, abscess, discitis ct lumbar spine unremarkable methadone, prn hydrocodone and oxycodone as above lidocaine patches Acute R achilles tendonitis. Resolved ice packs, ibuprofen prn given exercises to perform acute hypokalemia. Resolved Polysubstance IV use disorder urine drug screen positive for cocaine, opiates, fentanyl, methadone Continue methadone addiction medicine following Acute thrombocytopenia due to infection as above resolved Elevated LFTs likely r/t acute infection HIV and hep c ab neg LFTs trending down normocytic anemia- suspect chronic h/h above transfusion threshold Acute hypocalcemia. Resolved likely dilutional from iv Obesity. BMI 37.7 Discussed importance of weight management as this may be contributing to worsening of other comorbidities DVT prophylaxis: Mechanical Full code DISPO [facility] Pt requires ongoing inpt stay due to severe sepsis with gram positive bacteremia requiring iv abx, safe disposition Quality Stroke Does the patient have a stroke diagnosis?: No VTE Prior VTE?: No VTE Risk Level:: Medical - moderate - high VTE Device Contraindication: N/A - Device Ordered VTE Drug Contraindication: Treatment Not Indicated
== END 2023-11-29 17:28 | DRG 720 ==
LOC: HO.ED 11-20 01:28 → HO.EDOVER 11-20 01:44 → HO.S3 11-20 23:59
PROVIDERS: Internal Medicine; Physician Assistant; Physician Assistant Medical; Admitting Provider Student in an Organized Health Care Education/Training Program; Emergency Provider Emergency Medicine; PCP Nurse Practitioner Adult Health; Visit Provider Nurse Practitioner Acute Care
DX: A41.9 Sepsis, unspecified organism (principal); I33.0 Acute and subacute infective endocarditis; E83.51 Hypocalcemia; D64.9 Anemia, unspecified; R94.31 Abnormal electrocardiogram [ECG] [EKG]; B95.61 Methicillin susceptible Staphylococcus aureus infection as the cause of diseases classified elsewhere; E87.6 Hypokalemia; F11.20 Opioid dependence, uncomplicated; E66.09 Other obesity due to excess calories; Z68.37 Body mass index [BMI] 37.0-37.9, adult; M76.61 Achilles tendinitis, right leg; Z71.3 Dietary counseling and surveillance; R65.20 Severe sepsis without septic shock; Z20.822 Contact with and (suspected) exposure to COVID-19; Z79.899 Other long term (current) drug therapy
CPT/HCPCS: 0241U; 36415; 36573; 70450; 71045; 72132; 72158; 76705; 80048; 80076; 80202; 80307; 81001; 82550; 82565; 83605; 83690; 83735; 84145; 84484; 84702; 85025; 85027; 85652; 86140; 86803; 87040; 87077; 87086; 87147; 87186; 87205; 87389; 93005; 93306; 99285; A9585; C1751; J0690; J0696; J1170; J2270; J2405; J3370; J3371; J3475; Q9957; Q9967

== ENCOUNTER → 2023-11-19 21:02 | Outpatient (BNV) | payer OTHER, SELFPAY | PROVIDERS: Admitting Provider Student in an Organized Health Care Education/Training Program; Emergency Provider Emergency Medicine; Visit Provider Internal Medicine Cardiovascular Disease | DX: R00.0 Tachycardia, unspecified (principal) | CPT/HCPCS: 93010 ==

== ENCOUNTER 2023-11-20 01:43 | Outpatient (BNV) | payer OTHER, SELFPAY | END 2023-11-20 10:54 | PROVIDERS: Admitting Provider Student in an Organized Health Care Education/Training Program; Emergency Provider Emergency Medicine; Visit Provider Internal Medicine Cardiovascular Disease | DX: R94.31 Abnormal electrocardiogram [ECG] [EKG] (principal) | CPT/HCPCS: 93010 ==

== ENCOUNTER 2023-11-20 01:43 | Outpatient (BNV) | payer OTHER, SELFPAY | END 2023-11-21 09:05 | PROVIDERS: Admitting Provider Student in an Organized Health Care Education/Training Program; Emergency Provider Emergency Medicine; Visit Provider Internal Medicine Cardiovascular Disease | DX: I45.81 Long QT syndrome (principal) | CPT/HCPCS: 93010 ==

== ENCOUNTER 2023-11-20 01:43 | Outpatient (BNV) | payer OTHER, SELFPAY | END 2023-11-22 07:00 | PROVIDERS: Admitting Provider Student in an Organized Health Care Education/Training Program; Emergency Provider Emergency Medicine; PCP Nurse Practitioner Adult Health; Visit Provider Internal Medicine Cardiovascular Disease | DX: I36.1 Nonrheumatic tricuspid (valve) insufficiency (principal); I34.0 Nonrheumatic mitral (valve) insufficiency | CPT/HCPCS: 93306 ==

== ENCOUNTER 2023-11-20 01:43 | Outpatient (BNV) | payer OTHER, SELFPAY | END 2023-11-24 11:24 | PROVIDERS: Admitting Provider Student in an Organized Health Care Education/Training Program; Emergency Provider Emergency Medicine; PCP Nurse Practitioner Adult Health; Visit Provider Internal Medicine Cardiovascular Disease | DX: R94.31 Abnormal electrocardiogram [ECG] [EKG] (principal) | CPT/HCPCS: 93010 ==

== ENCOUNTER → 2023-11-20 01:43 | Outpatient (BNV) | payer OTHER, SELFPAY | PROVIDERS: Admitting Provider Student in an Organized Health Care Education/Training Program; Emergency Provider Emergency Medicine; Visit Provider Student in an Organized Health Care Education/Training Program | DX: R78.81 Bacteremia (principal); B95.61 Methicillin susceptible Staphylococcus aureus infection as the cause of diseases classified elsewhere | CPT/HCPCS: 99223; 99232; 99239; 99429 ==

== ENCOUNTER → 2023-11-20 01:43 | Outpatient (BNV) | payer OTHER, SELFPAY | PROVIDERS: Admitting Provider Student in an Organized Health Care Education/Training Program; Emergency Provider Emergency Medicine; Visit Provider Internal Medicine | DX: F19.10 Other psychoactive substance abuse, uncomplicated (principal); R78.81 Bacteremia; A41.9 Sepsis, unspecified organism; R65.20 Severe sepsis without septic shock | CPT/HCPCS: 99222 ==

== ENCOUNTER → 2023-11-20 01:43 | Outpatient (BNV) | payer OTHER, SELFPAY | PROVIDERS: Admitting Provider Student in an Organized Health Care Education/Training Program; Emergency Provider Emergency Medicine; Visit Provider Nurse Practitioner Psychiatric/Mental Health | DX: F11.90 Opioid use, unspecified, uncomplicated (principal) | CPT/HCPCS: 99231; 99232 ==

== ENCOUNTER 2023-12-22 11:39 | Outpatient (AMB) | payer OTHER, SELFPAY ==
[2023-12-22 11:46] VITALS: BP 112/68; PULSE 89; O2SAT 99; BMI 36.2
--- NOTE | 2023-12-22 11:46 | A.OFFVIS_ITS ---
Vital Signs 12/22/23 11:46 Height 5 ft 8 in Weight 238 lb BMI 36.2 BP 112/68 Blood Pressure Location Lt brachial Position Sitting Pulse 89 Pulse Source Pulse Oximeter Pulse Oximetry (%) 99 Oxygen Delivery Method Room Air Intake Visit Reasons: reffhigh view/cefazolin iv/sepsis Allergies No Known Allergies Allergy (Verified 12/22/23 11:48) HPI HPI reffhigh view/cefazolin iv/sepsis: Details: She feels well. She has occasional palpitations. She has no rash or diarrhea. She is taking Kefzol. [facility] Medical History Opioid use disorder Intravenous drug abuse Low back pain Elevated liver enzymes Thrombocytopenia Chronic back pain Opiate abuse, continuous Social History Housing: Apartment Alcohol intake: never Comment: patient refuses alarms Patient Tobacco Use Status: Former Tobacco user service: No Review of Systems Const All systems reviewed & are unremarkable except as noted in HPI and below Physical Exam Vital Signs: Last Vital Signs Pulse 89 12/22/23 11:46 BP 112/68 12/22/23 11:46 Pulse Ox 99 12/22/23 11:46 Oxygen Delivery Method Room Air 12/22/23 11:46 BMI result Body Mass Index 36.2 Const General: cooperative Orientation/consciousness: patient oriented x3 HEENT Head: Yes normal to inspection Mouth: Normal oral and palatal mucosa present Eyes General: appearance normal, both eyes and all related structures Pupils: Equal, round and reactive pupils present Resp Effort & Inspection: normal respiratory effort Cardio Rate: regular rate Rhythm: regular rhythm GI Palpation (GI): Soft to palpation and nontender General: Yes no CVA tenderness Back/Spine/Pelvis Back: no CVA tenderness Skin General skin exam: no rashes or lesions noted Neuro General: patient oriented x3 Cranial nerves: Yes CN's II-XII intact bilaterally and Yes Equal, round and reactive pupils present Extrem General: Yes normal to inspection Psych Appearance: grossly normal Assessment & Plan Assessment & Plan (1) Staphylococcus aureus bacteremia: Comment: She is doing well. Code(s): R78.81 - Bacteremia; B95.61 - Methicillin susceptible Staphylococcus aureus infection as the cause of diseases classified elsewhere Category: Medical Plan Stop IV Kefzol,pull line 01/04. Creatinine and CBC weekly. Need Customer Specialist appt. See in one month. Orders: Orders IR cvc remove any age 0612/27/23 R78.81 - Bacteremia, B95.61 - Methicillin susceptible Staphylococcus aureus infection as the cause of diseases classified elsewhere Coding Level of Care Code Est Pt Level 3 (73903) Diagnoses Staphylococcus aureus bacteremia R78.81; B95.61
== END 2023-12-22 12:08 | disposition home or self-care (01) ==
LOC: HO.HID 11:39
PROVIDERS: PCP Nurse Practitioner Adult Health; Visit Provider Internal Medicine
DX: R78.81 Bacteremia (principal); B95.61 Methicillin susceptible Staphylococcus aureus infection as the cause of diseases classified elsewhere
CPT/HCPCS: 99213

== ENCOUNTER → 2023-12-22 11:39 | Outpatient (BNVA) | payer OTHER, SELFPAY | PROVIDERS: PCP Nurse Practitioner Adult Health; Visit Provider Internal Medicine | DX: R78.81 Bacteremia (principal); B95.61 Methicillin susceptible Staphylococcus aureus infection as the cause of diseases classified elsewhere | CPT/HCPCS: 99212 ==

== ENCOUNTER 2024-01-13 23:41 | Emergency (ER) | payer OTHER, SELFPAY ==
--- NOTE | ~2024-01-13 | XR_ITS ---
EXAMINATION: XR CHEST CLINICAL INFORMATION: Chest pain with cough COMPARISON: Chest radiograph 11/24/2023 TECHNIQUE: Frontal view of the chest was obtained. FINDINGS: There is posterior fixation hardware beginning at T12 extending downwards. No significant abnormality is noted involving the heart, lungs, mediastinum or soft tissues. No bony destructive lesions. XR/XR chest 1V IMPRESSION: No acute intrathoracic disease.
[2024-01-13 23:50] VITALS: BP 110/77; PULSE 107; RESP 16; TEMP 36.9; O2SAT 98; BMI 36.3
--- NOTE | 2024-01-14 | ECG_ITS ---
Test Reason : CHEST PAIN Blood Pressure : / mmHG Vent. Rate : 102 BPM Atrial Rate : 102 BPM P-R Int : 138 ms QRS Dur : 076 ms QT Int : 368 ms P-R-T Axes : 028 026 013 degrees QTc Int : 479 ms Sinus tachycardia Possible Left atrial enlargement Nonspecific T wave abnormality Abnormal ECG When compared with ECG of 24-NOV-2023 11:24, Vent. rate has increased BY 34 BPM Nonspecific T wave abnormality now evident in Lateral leads Referred By: Generic ED Physician Electronically Signed By:SOFÍA BENJAMIN
--- NOTE | 2024-01-14 00:42 | MHC.EDTECH ---
This tech took over care of pt at this time,patient ambulated to the bathroom with a steady gait,urine sample obtained,blood cultures,labs,and sars/flu/rsv obtained and sent to lab
[2024-01-14 01:10] LABS: MANUAL DIFF FLAG NO
[2024-01-14 01:11] LABS: Basophils Percent Auto 0.7 % (0-2); Eosinophils Absolute Auto 0.4 X10*3/uL (0.0-0.4); Eosinophils Percent Auto 6.8 % (0-4); Hematocrit 38.8 % (37.0-47.0); Hemoglobin 13.3 g/dl (12.0-16.0); Imm Gran Abs Auto 0.01 X10*3/uL (0.00-0.03); Imm Gran Pct Auto 0.2 % (0.0-0.4); Lymphocytes Percent Auto 35.7 % (20-40); Mean Corpuscular HGB Conc 34.3 g/dl (31.0-35.0); Mean Corpuscular Hemoglobin 30.1 pg (27.0-33.0); Mean Corpuscular Volume 87.8 fL (80.0-98.0); Mean Platelet Volume 11.8 fL (9.4-12.3); Monocytes Absolute Auto 0.3 X10*3/uL (0.1-1.2); Monocytes Percent Auto 5.7 % (2-11); Neutrophils Absolute Auto 2.9 x10*3/uL (2.0-8.3); Neutrophils Percent Auto 50.9 % (45-73); Platelet Count 181 X10*3/uL (160-400); Red Blood Count 4.42 X10*6/uL (4.20-5.50); Red Cell Distribution Width 13.1 % (11.0-16.0); White Blood Count 5.6 X10*3/uL (4.8-10.8)
--- NOTE | 2024-01-14 01:13 | ED.CHESTPAIN ---
HPI - Chest Pain General Chief Complaint: Chest Pain Stated Complaint: body fatigue Time Seen by Provider: 01/14/24 00:14 Source: patient and EMS Mode of arrival: EMS Limitations: no limitations History of Present Illness ED Provider: sekou FERMIN narrative: Patient's history of IVDA user history of staph aureus MSSA bacteremia with vegetation on tricuspid received IV Kefzol for 6 weeks stopped on 12/26 has not received any medicine after the course comes here as feeling same after antibiotics were stopped body aches tiredness no fever no chills no shortness a breath patient denied any IVDA after discharge not in any distress when arrived in the ER eating food on the phone Related Data Home Medications ?Medication ?Instructions ?Recorded ?Confirmed gabapentin 300 mg capsule 300 mg PO BID-TID 11/20/23 11/20/23 methadone 10 mg/5 mL oral solution 226 mg PO DAILY 11/20/23 11/20/23 Previous Rx's ?Medication ?Instructions ?Recorded cefazolin 1 gram solution for 1 g IV Q8H #25 ea 11/29/23 injection Allergies Allergy/AdvReac Type Severity Reaction Status Date / Time No Known Allergies Allergy Verified 01/13/24 23:57 Review of Systems Review of Systems: Yes all other systems are reviewed and are negative PMFSH Past Medical History Medical History Opioid use disorder Intravenous drug abuse Low back pain Elevated liver enzymes Thrombocytopenia Chronic back pain Opiate abuse, continuous Social History Social History Housing: Apartment Alcohol intake: never Comment: patient refuses alarms Patient Tobacco Use Status: Former Tobacco user Advance Directives: No Advance Directives Information Provided: No Do you have a plan to hurt others: No Plan Patient : No service: No Physical Exam Vital Signs: Vital Signs: Last Vital Signs Temp 99.0 F 01/14/24 01:59 Pulse 98 01/14/24 01:59 Resp 16 01/14/24 01:59 BP 115/75 01/14/24 01:59 Pulse Ox 97 01/14/24 01:59 O2 Del Method Room Air 01/14/24 01:59 BMI result Body Mass Index 36.3 Appearance: Alert. Oriented X3. No acute distress. Eyes: No pallor or icterus ENT: Pharynx normal. Oral Mucosa moist Neck: Normal inspection. Neck supple. CVS: Normal heart rate and rhythm. Pulses normal. Respiratory: No respiratory distress. Equal air entry bilateral, no wheezing/rales/rhonchi Abdomen: Soft and nontender. Bowel sounds are present, no mass palpable, no CVA tenderness Skin: Skin warm and dry. Normal skin color. Normal skin turgor. Extremities: No lower extremity edema. No calf tenderness Neuro: Oriented X 3. No motor deficit. 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 11/20/2023 this finish the course of antibiotic for 6 weeks comes here for weakness nonspecific no fever workup at this time is negative lactic acid level normal WBC count normal blood cultures were drawn again at this time there is no signs of infection will discharge patient home advised to follow up with PCP which is scheduled for tomorrow Differential Diagnosis Differential Diagnoses: The differential diagnosis associated with the presentation includes Admission/Observation Consideration of admission/observation: Escalation of care including admission/observation considered Lab Data [facility] Lab Attestation statement: I reviewed the patient's lab results. 01/14/24 01:03 01/14/24 01:03 Labs: Lab Results 01/14/24 01/14/24 Range/Units 00:48 01:03 WBC 5.6 (4.8-10.8) X10*3/uL RBC 4.42 (4.20-5.50) X10*6/uL Hgb 13.3 (12.0-16.0) g/dl Hct 38.8 (37.0-47.0) % MCV 87.8 (80.0-98.0) fL MCH 30.1 (27.0-33.0) pg MCHC 34.3 (31.0-35.0) g/dl RDW 13.1 (11.0-16.0) % Plt Count 181 D (160-400) X10*3/uL MPV 11.8 (9.4-12.3) fL Immature Gran % (Auto) 0.2 (0.0-0.4) % Neut % (Auto) 50.9 (45-73) % Lymph % (Auto) 35.7 (20-40) % [place] % (Auto) 5.7 (2-11) % Eos % (Auto) 6.8 H (0-4) % Baso % (Auto) 0.7 (0-2) % Lymph # (Auto) 2.0 (1.2-4.9) X10*3/uL [place] # (Auto) 0.3 (0.1-1.2) X10*3/uL Eos # (Auto) 0.4 (0.0-0.4) X10*3/uL Baso # (Auto) 0.0 (0.0-0.2) X10*3/uL Abs Immat Gran (auto) 0.01 (0.00-0.03) X10*3/uL Absolute Neuts (auto) 2.9 (2.0-8.3) x10*3/uL Absolute Nucleated RBC 0.000 (0.0-0.012) X10*3/uL Nucleated RBC % (auto) 0.0 (0.0-0.2) /100WBC Sodium 136 (135-145) mmol/L Potassium 4.0 (3.3-5.1) mmol/L Chloride 105 (96-108) mmol/L Carbon Dioxide 22 (22-29) mmol/L Anion Gap 13 (12-20) BUN 11 (9-16) mg/dL Creatinine 0.84 (0.5-1.4) mg/dL Estim Creat Clear Calc 118.2 Estimated GFR > 60 Random Glucose 135 H (60-115) mg/dL Lactic Acid 1.4 (0.5-2.0) mmol/L Calcium 9.6 D (8.4-10.2) mg/dL Troponin I High Sens < 2.7 (<3.5-17.0) ng/L Beta HCG, Quant < 2 mIU/mL Urine Color Dark Yellow Urine Appearance Cloudy Urine pH 5.5 (5.0-9.0) Ur Specific [place] >= 1.030 H (1.005-1.025) Urine Protein Trace (Neg-Trace) mg/dL Urine Glucose (UA) Negative (Negative) mg/dL Urine Ketones Trace (Negative) mg/dL Urine Blood Negative (Negative) Urine Nitrite Negative (Negative) Ur Leukocyte Esterase Trace H (Negative) Urine RBC 0-2 (0-2) /HPF Urine WBC 0-5 (0-5) /HPF Ur Squamous Epith Cells 3-5 (0-2) /HPF Calcium Oxalate Crystal Present Urine Bacteria None Seen (None Seen) Hyaline Casts 0-2 (0-2) /LPF Urine Opiates Screen Not Detected (Not Detect) Ur Buprenorphine Scrn Not Detected (Not Detect) ng/mL Ur Oxycodone Screen Not Detected (Not Detect) ng/mL Urine Methadone Screen Positive H (Not Detect) ng/mL Urine Fentanyl Screen POSITIVE H (Not Detect) Ur Barbiturates Screen Not Detected (Not Detect) Ur Phencyclidine Scrn Not Detected (Not Detect) Ur Amphetamines Screen Not Detected (Not Detect) U Benzodiazepines Scrn Not Detected (Not Detect) Urine Cocaine Screen Not Detected (Not Detect) U Marijuana (THC) Screen Not Detected (Not Detect) Influenza Type A (PCR) NEGATIVE (Negative) Influenza Type B (PCR) NEGATIVE (Negative) RSV RNA Qual (PCR) NEGATIVE (Negative) SARS-CoV-2 RNA (RT-PCR) NEGATIVE (Negative) Discharge Plan Discharge Clinical Impression: Weakness Patient Disposition: Home, Self-Care Instructions: Weakness (ED) Additional Instructions: Follow with your PCP At this time there is no signs of any infection blood cultures are pending Prescriptions: No Action methadone 10 mg/5 mL Solution 226 mg PO DAILY Patient Comments: was given 1/2 dose 11/19/23 at [facility] per patient gabapentin 300 mg capsule 300 mg PO BID-TID cefazolin 1 gram Recon Soln 1 g IV Q8H Qty: 25 0RF Print Language: Barbadian
[2024-01-14 01:14] LABS: Appearance Urine Cloudy; Color Urine Dark Yellow; Glucose Urine UA Negative (Negative); Leukocyte Esterase Urine Trace (Negative); Nitrite Urine Negative (Negative); PH 5.5 (5.0-9.0); Specific Gravity - Urine >= 1.030 (1.005-1.025); UMIC TRIGGER UACC YES; Urine Blood Negative (Negative); Urine Ketones Trace mg/dL (Negative); Urine Protein Trace mg/dL (Neg-Trace)
[2024-01-14 01:21] LABS: Lactic Acid 1.4 mmol/L (0.5-2.0)
[2024-01-14 01:22] LABS: Amphetamine Screen Urine Not Detected (Not Detect); Barbiturates, Urine Not Detected (Not Detect); Benzodiazepines Screen Urine Not Detected (Not Detect); Buprenorphine Scr Not Detected (Not Detect); Cannabinoid Screen Urine Not Detected (Not Detect); Cocaine Screen Urine Not Detected (Not Detect); Fentanyl, urine POSITIVE (Not Detect); Methadone Screen, Urine Positive (Not Detect); Opiate Screen Urine Not Detected (Not Detect); Oxycodone Screen Urine Not Detected (Not Detect); Phencyclidine Screen Urine Not Detected (Not Detect)
[2024-01-14 01:26] LABS: Bacteria Urine None Seen (None Seen); Calcium Oxalate Crystals Urine Present; Hyaline Casts Urine 0-2 /LPF (0-2); RBC Urine 0-2 /HPF (0-2); WBC Urine 0-5 /HPF (0-5)
[2024-01-14 01:31] LABS: Anion Gap 13 (12-20); Blood Urea Nitrogen 11 mg/dL (9-16); Calcium 9.6 mg/dL (8.4-10.2); Carbon Dioxide 22 mmol/L (22-29); Chloride 105 mmol/L (96-108); Creatinine Clr Calc Pharmacy 118.2; Estimated Glomerular Filt Rate > 60; Glucose Random 135 mg/dL (60-115); Sodium 136 mmol/L (135-145)
[2024-01-14 01:43] LABS: HCG Quantitative < 2 mIU/mL; Troponin-I High Sensitivity < 2.7 ng/L (<3.5-17.0)
[2024-01-14 01:49] LABS: Influenza A PCR NEGATIVE (Negative); Influenza B PCR NEGATIVE (Negative); Resp Syncy Virus RNA Qual PCR NEGATIVE (Negative); SARS COV2 PCR INHOUSE NEGATIVE (Negative)
[2024-01-14 01:59] VITALS: BP 115/75; PULSE 98; RESP 16; TEMP 37.2; O2SAT 97
[2024-01-14 02:34] VITALS: BP 115/75; PULSE 98; RESP 17; TEMP 37.2; O2SAT 99
== END 2024-01-14 02:38 | disposition home or self-care (01) ==
PROVIDERS: Emergency Provider Internal Medicine; PCP Nurse Practitioner Adult Health
DX: R53.1 Weakness (principal); F19.10 Other psychoactive substance abuse, uncomplicated; F11.20 Opioid dependence, uncomplicated; Z87.891 Personal history of nicotine dependence; Z79.899 Other long term (current) drug therapy; Z03.818 Encounter for observation for suspected exposure to other biological agents ruled out
CPT/HCPCS: 0241U; 36415; 71045; 80048; 80307; 81001; 83605; 84484; 84702; 85025; 87040; 93005; 99283; 99284

== ENCOUNTER → 2024-01-14 | Outpatient (BNV) | payer OTHER, SELFPAY | PROVIDERS: Emergency Provider Internal Medicine; PCP Nurse Practitioner Adult Health; Visit Provider Internal Medicine | DX: R07.9 Chest pain, unspecified (principal) | CPT/HCPCS: 93010 ==